=== PATIENT | male | born 1935 | race Caucasian/White ===

== ENCOUNTER 2016-07-19 10:26 | Inpatient (IN) | payer MEDICARE, BC ==
[2016-07-19] MEDS ORDERED: NITROGLYCERIN OINT 1 INCH/GM PACKET TOPICAL STA (10:56)
[2016-07-19] MEDS ORDERED: methylPREDNISolone SOD SUCCI 125 MG/2 ML VIAL IV STA (10:56)
--- NOTE | 2016-07-19 11:00 | ED ---
Extremity Problem HPI - General Chief complaint: Extremity Problem,Nontraumatic Stated complaint: CHF Time Seen by Provider: 07/19/16 10:46 Source: patient, family, RN notes reviewed Mode of arrival: wheelchair Limitations: no limitations - History of Present Illness Initial comments: This is a 82-year-old male with a history of COPD presents with complaints of dyspnea on exertion and shortness of breath also some chest tightness. Additionally he's had some edema to his left lower extremity. He states his saturations were in the mid to high 80s today he normally travels into the mid to high 90s on room air. He did take an updraft treatment just prior to arrival here he does feel somewhat better but upon arrival he still had a saturation of 88-89% on room air. He states his chest discomfort is about 4/10 severity. He relates the shortness of breath starting with a red spot was on his left leg which is since resolved he does have some slight edema he states. He denies any overt fevers chills or sweats. MD Complaint: other - Related Data Home Medications Medication Instructions Recorded Confirmed Albuterol Sulfate [Proair Hfa] 2 puff INHALATION RT-Q6H PRN 08/25/15 07/19/16 Atorvastatin [Lipitor] 20 mg PO HS 08/25/15 07/19/16 Budesonide [Pulmicort] 0.5 mg INHALATION RT-BID@0900,2100 08/25/15 07/19/16 Calcium Carb-Vit D 500Mg-200Un 1 tab PO DAILY@119908/25/15 07/19/16 [Oscal 500+D] Carvedilol [Coreg] 12.5 mg PO BID 08/25/15 07/19/16 Cetirizine HCl [Zyrtec] 10 mg PO DAILY@119908/25/15 07/19/16 Cholecalciferol [Vitamin D3] 2,000 unit PO DAILY@119908/25/15 07/19/16 Ferrous Sulfate [Feosol] 325 mg PO DAILY@119908/25/15 07/19/16 Fish Oil/Dha/Epa [Fish Oil 1,200 1 cap PO DAILY@119908/25/15 07/19/16 mg Fish Oil] HYDROcodone/APAP 10-325MG [[place] 1 tab PO Q6H PRN 08/25/15 07/19/16 10-325] Lisinopril-Hctz 20-25 mg 1 tab PO QAM 08/25/15 07/19/16 [Zestoretic 20-25] Magnesium 200 mg PO DAILY@1200 08/25/15 07/19/16 Montelukast [Singulair] 10 mg PO HS 08/25/15 07/19/16 Omeprazole 20 mg PO QAM 08/25/15 07/19/16 Polyethylene Glycol 3350 [Miralax] 17 gm PO DAILY@1200 08/25/15 07/19/16 Ranitidine HCl [Zantac] 300 mg PO HS 08/25/15 07/19/16 traZODone HCL [Desyrel] 50 mg PO HS 08/25/15 07/19/16 Albuterol Nebulized [Ventolin 2.5 mg INHALATION 07/19/16 07/19/16 Nebulized] RT-QID@03,09,15,21 Furosemide [Lasix] 20 mg PO DAILY PRN 07/19/16 07/19/16 Ipratropium Nebulized [Atrovent 0.5 mg INHALATION 07/19/16 07/19/16 Nebulized] RT-QID@03,09,15,21 Sertraline [Zoloft] 100 mg PO DAILY 07/19/16 07/19/16 clonazePAM [Clonazepam] 0.5 mg PO HS 07/19/16 07/19/16 Allergies Allergy/AdvReac Type Severity Reaction Status Date / Time ciprofloxacin [From Cipro] Allergy Angioedema Verified 07/19/16 11:49 ciprofloxacin HCl Allergy Angioedema Verified 07/19/16 11:49 [From Cipro] ragweed pollen Allergy congestion Verified 07/19/16 11:49 warfarin sodium AdvReac Nausea & Verified 07/19/16 11:49 [From Coumadin] Vomiting Review of Systems ROS Statement: Those systems with pertinent positive or pertinent negative responses have been documented in the HPI. ROS Other: All systems not noted in ROS Statement are negative. Past Medical History Past Medical History: Asthma, Cancer, COPD, Diabetes Mellitus, GERD/Reflux, Hypertension, Prostate Disorder Additional Past Medical History / Comment(s): melanoma; "very, very, very bad back" "discs in back have disintegrated" "pinched nerves", diet controlled NIDDM History of Any Multi-Drug Resistant Organisms: None Reported Past Surgical History: Heart Catheterization, Orthopedic Surgery, Tonsillectomy Additional Past Surgical History / Comment(s): Sx: both hips & both knees replaced; Left arm tricep arm repaired; 1994 cath Past Anesthesia/Blood Transfusion Reactions: Previous Problems w/ Anesthesia Additional Past Anesthesia/Blood Transfusion Reaction / Comment(s): uncontrolled shaking Past Psychological History: Anxiety Smoking Status: Former smoker Past Alcohol Use History: Rare Additional Past Alcohol Use History / Comment(s): smoking: started 7 stopped 2006 Past Drug Use History: None Reported - Past Family History Mother Family Medical History: No Reported History Additional Family Medical History / Comment(s): " at 94 from old age" Father Family Medical History: No Reported History Additional Family Medical History / Comment(s): " from medication interaction" General Exam - General Exam Comments Initial Comments: This is a well-developed well-nourished awake alert oriented 3 male Limitations: no limitations General appearance: alert, in no apparent distress Head exam: Present: atraumatic, normocephalic, normal inspection Eye exam: Present: normal appearance, PERRL, EOMI. Absent: scleral icterus, conjunctival injection, periorbital swelling ENT exam: Present: normal exam, mucous membranes moist Neck exam: Present: normal inspection. Absent: tenderness, meningismus, lymphadenopathy Respiratory exam: Present: normal lung sounds bilaterally. Absent: respiratory distress, wheezes, rales, rhonchi, stridor Cardiovascular Exam: Present: regular rate, normal rhythm, normal heart sounds. Absent: systolic murmur, diastolic murmur, rubs, gallop, clicks GI/Abdominal exam: Present: soft, normal bowel sounds. Absent: distended, tenderness, guarding, rebound, rigid Extremities exam: Present: normal inspection, full ROM, normal capillary refill , pedal edema (Trace edema in the left no overt edema on the right lower extremity). Absent: tenderness, joint swelling, calf tenderness Back exam: Present: normal inspection Neurological exam: Present: alert, oriented X3, CN II-XII intact Psychiatric exam: Present: normal affect, normal mood Skin exam: Present: warm, dry, intact, normal color. Absent: rash Course Vital Signs 07/19/16 07/19/16 07/19/16 10:36 11:54 13:10 Temperature 97.5 F L Pulse Rate 92 87 93 Respiratory 16 18 16 Rate Blood Pressure 133/66 123/66 119/66 O2 Sat by Pulse 91 L 91 L 92 L Oximetry 07/19/16 07/19/16 13:24 13:32 Temperature Pulse Rate 92 96 Respiratory 20 Rate Blood Pressure O2 Sat by Pulse Oximetry - Reevaluation(s) Reevaluation #1: 07/19/16 13:58 The patient still is feeling dyspneic he did get a order for a repeat updraft. Medical Decision Making - Lab Data Result diagrams: 07/19/16 11:00 07/19/16 11:00 Lab Results 07/19/16 07/19/16 07/19/16 Range/Units 11:00 11:00 11:00 WBC 12.4 H (3.8-10.6) k/uL RBC 4.27 L (4.30-5.90) m/uL Hgb 13.4 (13.0-17.5) gm/dL Hct 40.6 (39.0-53.0) % MCV 95.2 (80.0-100.0) fL MCH 31.3 (25.0-35.0) pg MCHC 32.9 (31.0-37.0) g/dL RDW 13.9 (11.5-15.5) % Plt Count 264 (150-450) k/uL Neutrophils % 93 % Lymphocytes % 5 % Monocytes % 1 % Eosinophils % 0 % Basophils % 0 % Neutrophils # 11.6 H (1.3-7.7) k/uL Lymphocytes # 0.7 L (1.0-4.8) k/uL Monocytes # 0.1 (0-1.0) k/uL Eosinophils # 0.0 (0-0.7) k/uL Basophils # 0.0 (0-0.2) k/uL PT (9.0-12.0) sec INR (<1.1) APTT (22.0-30.0) sec Sodium 139 (137-145) mmol/L Potassium 5.2 H (3.5-5.1) mmol/L Chloride 104 (98-107) mmol/L Carbon Dioxide 24 (22-30) mmol/L Anion Gap 11 mmol/L BUN 35 H (9-20) mg/dL Creatinine 2.02 H (0.66-1.25) mg/dL Est GFR (MDRD) Af Amer 39 (>60 ml/min/1.73 sqM) Est GFR (MDRD) Non-Af 32 (>60 ml/min/1.73 sqM) Glucose 169 H (74-99) mg/dL Calcium 9.7 (8.4-10.2) mg/dL Magnesium 1.8 (1.6-2.3) mg/dL Total Bilirubin 0.6 (0.2-1.3) mg/dL AST 33 (17-59) U/L ALT 42 (21-72) U/L Alkaline Phosphatase 89 (38-126) U/L Total Creatine Kinase 102 (55-170) U/L CK-MB (CK-2) 1.9 (0.0-2.4) ng/mL CK-MB (CK-2) Rel Index 1.9 Troponin I <0.012 (0.000-0.034) ng/mL NT-Pro-B Natriuret Pep pg/mL Total Protein 7.2 (6.3-8.2) g/dL Albumin 4.0 (3.5-5.0) g/dL 07/19/16 07/19/16 Range/Units 11:00 11:00 WBC (3.8-10.6) k/uL RBC (4.30-5.90) m/uL Hgb (13.0-17.5) gm/dL Hct (39.0-53.0) % MCV (80.0-100.0) fL MCH (25.0-35.0) pg MCHC (31.0-37.0) g/dL RDW (11.5-15.5) % Plt Count (150-450) k/uL Neutrophils % % Lymphocytes % % Monocytes % % Eosinophils % % Basophils % % Neutrophils # (1.3-7.7) k/uL Lymphocytes # (1.0-4.8) k/uL Monocytes # (0-1.0) k/uL Eosinophils # (0-0.7) k/uL Basophils # (0-0.2) k/uL PT 10.2 (9.0-12.0) sec INR 1.0 (<1.1) APTT 23.0 (22.0-30.0) sec Sodium (137-145) mmol/L Potassium (3.5-5.1) mmol/L Chloride (98-107) mmol/L Carbon Dioxide (22-30) mmol/L Anion Gap mmol/L BUN (9-20) mg/dL Creatinine (0.66-1.25) mg/dL Est GFR (MDRD) Af Amer (>60 ml/min/1.73 sqM) Est GFR (MDRD) Non-Af (>60 ml/min/1.73 sqM) Glucose (74-99) mg/dL Calcium (8.4-10.2) mg/dL Magnesium (1.6-2.3) mg/dL Total Bilirubin (0.2-1.3) mg/dL AST (17-59) U/L ALT (21-72) U/L Alkaline Phosphatase (38-126) U/L Total Creatine Kinase (55-170) U/L CK-MB (CK-2) (0.0-2.4) ng/mL CK-MB (CK-2) Rel Index Troponin I (0.000-0.034) ng/mL NT-Pro-B Natriuret Pep 420 pg/mL Total Protein (6.3-8.2) g/dL Albumin (3.5-5.0) g/dL - EKG Data -: EKG Interpreted by [place] EKG shows normal: sinus rhythm (Sinus rhythm with a rate of 88 [place] interval 148 QRS duration 84 QT/QTC of 352/425 st-t wave changes are seen.) - Radiology Data Radiology results: report reviewed (Did review the x-rays and reports no acute findings.), image reviewed Critical Care Time Critical Care Time: Yes Critical Care Time: Or 2 minutes which included initial presentation with history physical lab and x -rays reevaluation patient to therapy response evaluation of labs and x-rays. Discussion with the patient family. Discussion with the admitting physician documentation and admission orders. Disposition Clinical Impression: COPD with exacerbation, Hypoxemia, Chest pain Disposition: ADMITTED IP TO THIS [facility] Condition: Stable
[2016-07-19 11:11] LABS: Basophils % (A) 0 %; CH 31.4; CHCM 33.2; Eosinophils % (A) 0 %; HCT 40.6 % (39.0-53.0); HGB 13.4 gm/dL (13.0-17.5); Luc # (Auto) 0.06; Luc % (Auto) 1; Lymphocytes # (A) 0.7 k/uL (1.0-4.8); Lymphocytes % (A) 5 %; MCH 31.3 pg (25.0-35.0); MCHC 32.9 g/dL (31.0-37.0); MCV 95.2 fL (80.0-100.0); Monocytes # (A) 0.1 k/uL (0-1.0); Monocytes % (A) 1 %; Neutrophils # (A) 11.6 k/uL (1.3-7.7); Neutrophils % (A) 93 %; RBC 4.27 m/uL (4.30-5.90); RDW 13.9 % (11.5-15.5); WBC 12.4 k/uL (3.8-10.6); WBC (Perox) 12.65
[2016-07-19 11:21] LABS: Prothrombin Time 10.2 sec (9.0-12.0)
[2016-07-19 11:23] LABS: Calcium 9.7 mg/dL (8.4-10.2); Magnesium 1.8 mg/dL (1.6-2.3); Potassium 5.2 mmol/L (3.5-5.1); Total Bilirubin 0.6 mg/dL (0.2-1.3); Total Protein 7.2 g/dL (6.3-8.2)
[2016-07-19 11:32] LABS: Creatine Kinase 102 U/L (55-170)
--- NOTE | 2016-07-19 11:34 | XR ---
EXAMINATION TYPE: XR chest 2V DATE OF EXAM: 07/19/2016 11:26 AM COMPARISON: Chest CT December 02, 2014. HISTORY: Shortness of breath and chest pain. TECHNIQUE: Frontal and lateral views of the chest are obtained. FINDINGS: Underlying emphysematous change is present. Right basilar linear scarring is redemonstrated . There is no focal air space opacity, pleural effusion, or pneumothorax seen. The cardiac silhouett e size is within normal limits. Degenerative change in both shoulders is seen. IMPRESSION: Chronic emphysematous change without acute pulmonary process.
[2016-07-19 11:45] LABS: Creatine Kinase MB 1.9 ng/mL (0.0-2.4); Troponin I <0.012 ng/mL (0.000-0.034)
[2016-07-19] MEDS ORDERED: MAGNESIUM SULFATE-D5W PMX 1 GM in DEXTROSE/WATER 1 100ML.BAG IVPB ONE (13:14)
[2016-07-19] MEDS ORDERED: IPRATROPIUM-ALBUTEROL 3 ML NEB INHALATION STA (13:14)
[2016-07-19] MEDS ORDERED: SODIUM CHLORIDE 0.9% 1,000 ML IV SCH (14:00)
[2016-07-19] MEDS ORDERED: FUROSEMIDE 20 MG TAB PO PRN (14:02)
[2016-07-19] MEDS: HYDROcodone/APAP 10-325MG 1 EACH TAB PO PRN (15:12)
[2016-07-19] MEDS: IPRATROPIUM-ALBUTEROL 3 ML NEB INHALATION SCH ×2 (17:16→20:23)
[2016-07-19] MEDS: CARVEDILOL 12.5 MG TAB PO SCH (17:57)
[2016-07-19] MEDS: methylPREDNISolone SOD SUCCI 125 MG/2 ML VIAL IV SCH ×2 (18:12→22:43)
[2016-07-19 21:21] LABS: Glucose,Whole Blood 202 mg/dL (75-99)
[2016-07-19] MEDS: traZODone HCL 50 MG TAB PO SCH (21:45)
[2016-07-19] MEDS: clonazePAM 0.5 MG TAB PO SCH (21:46)
[2016-07-19] MEDS: MONTELUKAST 10 MG TAB PO SCH (21:46)
[2016-07-19] MEDS: FAMOTIDINE 20 MG TAB PO SCH (21:46)
[2016-07-19] MEDS: ATORVASTATIN 20 MG TAB PO SCH (21:54)
[2016-07-19] MEDS: INSULIN LISPRO (humaLOG) 300 UNIT/3 ML VIAL SQ SCH (22:41)
[2016-07-20] MEDS: IPRATROPIUM-ALBUTEROL 3 ML NEB INHALATION SCH ×7 (00:30→23:53)
[2016-07-20] MEDS: methylPREDNISolone SOD SUCCI 125 MG/2 ML VIAL IV SCH ×4 (05:49→23:30)
[2016-07-20 07:51] LABS: Glucose,Whole Blood 156 mg/dL (75-99)
[2016-07-20] MEDS: CARVEDILOL 12.5 MG TAB PO SCH ×2 (07:56→17:14)
[2016-07-20] MEDS: INSULIN LISPRO (humaLOG) 300 UNIT/3 ML VIAL SQ SCH ×4 (08:02→21:13)
[2016-07-20] MEDS: HYDROcodone/APAP 10-325MG 1 EACH TAB PO PRN ×2 (08:02→17:14)
[2016-07-20] MEDS: SERTRALINE 100 MG TAB PO SCH (08:40)
[2016-07-20] MEDS: PANTOPRAZOLE 40 MG TABLET PO SCH (08:40)
[2016-07-20] MEDS ORDERED: LISINOPRIL-HCTZ 20-25 MG 1 EACH TAB PO SCH (09:00)
[2016-07-20 09:55] LABS: Calcium 9.2 mg/dL (8.4-10.2); Potassium 4.5 mmol/L (3.5-5.1); Total Bilirubin 0.4 mg/dL (0.2-1.3); Total Protein 6.3 g/dL (6.3-8.2)
[2016-07-20 10:27] LABS: Basophils % (A) 0 %; CH 30.9; CHCM 32.1; Eosinophils % (A) 0 %; HCT 38.8 % (39.0-53.0); HDW 2.06; HGB 12.4 gm/dL (13.0-17.5); Luc # (Auto) 0.03; Luc % (Auto) 0; Lymphocytes # (A) 0.6 k/uL (1.0-4.8); Lymphocytes % (A) 4 %; MCH 30.8 pg (25.0-35.0); MCHC 31.9 g/dL (31.0-37.0); MCV 96.6 fL (80.0-100.0); Mean Platelet Volume 7.6; Monocytes # (A) 0.2 k/uL (0-1.0); Monocytes % (A) 1 %; Neutrophils # (A) 16.3 k/uL (1.3-7.7); Neutrophils % (A) 95 %; RBC 4.01 m/uL (4.30-5.90); RDW 13.8 % (11.5-15.5); WBC 17.2 k/uL (3.8-10.6); WBC (Perox) 17.73
--- NOTE | 2016-07-20 10:59 | P.HPIM ---
History of Present Illness H&P Date: 07/20/16 Chief Complaint: Shortness of breath and chest pain This is a 81-year-old male, a patient of [facility]. He has a known past medical history of COPD, diabetes mellitus, prostate cancer status post surgery, congestive heart failure, melanoma and former smoker. Presents to the hospital with worsening shortness of breath and chest pain. Patient states he has had worsening shortness of breath of the last couple weeks. Yesterday he started to have chest pains with cold sweats and tingling in the left arm. He was found to have hypoxemia with oxygen saturation in the 80s in the emergency room. Troponin was negative. EKG shows normal sinus rhythm with sinus arrhythmia. He was started on oxygen. Chest x-ray shows chronic emphysematous changes with no acute change. Pulmonary service consulted. He was started on IV Solu-Medrol and bronchodilators. He also will be placed on antibiotics for bronchitis. He does report to having some productive cough. Also had evidence of acute kidney injury with a creatinine of 2.02. It is unclear of his exact baseline kidney function. His he does report some leg swelling in the left leg which she took Lasix twice during the week. Leg swelling has decreased. BNP 420 on admission. Patient denies any fever, chills , sweats. Denies any nausea or vomiting. Denies any bowel movement changes or urinary symptoms. Review of Systems Please refer to HPI otherwise unremarkable Past Medical History Past Medical History: Cancer, Heart Failure, COPD, Diabetes Mellitus, GERD/ Reflux, Hyperlipidemia, Hypertension, Prostate Disorder Additional Past Medical History / Comment(s): melanoma x2 to lt ear; "very, very , very bad back" "discs in back have disintegrated" "pinched nerves", diet controlled NIDDM, diverticualr disease,rt eye cataract, kidney stone in past.hiatal hernia,sinus/seasonal allergies."irreg heart beat, murmur. History of Any Multi-Drug Resistant Organisms: None Reported Past Surgical History: Heart Catheterization, Orthopedic Surgery, Prostate Surgery, Tonsillectomy Additional Past Surgical History / Comment(s): both hips & both knees replaced; Left arm tricep arm repaired; 1993 cath-no intervention, colonoscopy/polypectomy (benign), prostatectomy d/t cancer. steroid inj to back Past Anesthesia/Blood Transfusion Reactions: Previous Problems w/ Anesthesia Additional Past Anesthesia/Blood Transfusion Reaction / Comment(s): uncontrolled shaking(prevously charted) Past Psychological History: Anxiety Additional Psychological History / Comment(s): pt is independant, lives with his elis (and 2 cats) in a ranch style home that has 3 steps into home. no outseide services recieved. 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 Smoking Status: Former smoker Past Alcohol Use History: Rare Additional Past Alcohol Use History / Comment(s): smoking: started 194 stopped 2004, was smoking less than 1/2 ppd Past Drug Use History: None Reported - Past Family History Mother Family Medical History: No Reported History Additional Family Medical History / Comment(s): " at 94 from old age" Father Family Medical History: No Reported History Additional Family Medical History / Comment(s): " from medication interaction" Medications and Allergies Home Medications Medication Instructions Recorded Confirmed Type Albuterol Sulfate [Proair Hfa] 2 puff INHALATION RT-Q6H PRN 08/25/15 07/19/16 History Atorvastatin [Lipitor] 20 mg PO HS 08/25/15 07/19/16 History Budesonide [Pulmicort] 0.5 mg INHALATION RT-BID@0900,2100 08/25/15 07/19/16 History Calcium Carb-Vit D 500Mg-200Un 1 tab PO DAILY@119908/25/15 07/19/16 History [Oscal 500+D] Carvedilol [Coreg] 12.5 mg PO BID 08/25/15 07/19/16 History Cetirizine HCl [Zyrtec] 10 mg PO DAILY@119908/25/15 07/19/16 History Cholecalciferol [Vitamin D3] 2,000 unit PO DAILY@119908/25/15 07/19/16 History Ferrous Sulfate [Feosol] 325 mg PO DAILY@119908/25/15 07/19/16 History Fish Oil/Dha/Epa [Fish Oil 1,200 1 cap PO DAILY@119908/25/15 07/19/16 History mg Fish Oil] HYDROcodone/APAP 10-325MG [[place] 1 tab PO Q6H PRN 08/25/15 07/19/16 History 10-325] Lisinopril-Hctz 20-25 mg 1 tab PO QAM 08/25/15 07/19/16 History [Zestoretic 20-25] Magnesium 200 mg PO DAILY@1200 08/25/15 07/19/16 History Montelukast [Singulair] 10 mg PO HS 08/25/15 07/19/16 History Omeprazole 20 mg PO QAM 08/25/15 07/19/16 History Polyethylene Glycol 3350 [Miralax] 17 gm PO DAILY@1200 08/25/15 07/19/16 History Ranitidine HCl [Zantac] 300 mg PO HS 08/25/15 07/19/16 History traZODone HCL [Desyrel] 50 mg PO HS 08/25/15 07/19/16 History Albuterol Nebulized [Ventolin 2.5 mg INHALATION 07/19/16 07/19/16 History Nebulized] RT-QID@03,,, Furosemide [Lasix] 20 mg PO DAILY PRN 07/19/16 07/19/16 History Ipratropium Nebulized [Atrovent 0.5 mg INHALATION 07/19/16 07/19/16 History Nebulized] RT-QID@03,09,,21 Sertraline [Zoloft] 100 mg PO DAILY 07/19/16 07/19/16 History clonazePAM [Clonazepam] 0.5 mg PO HS 07/19/16 07/19/16 History Allergies Allergy/AdvReac Type Severity Reaction Status Date / Time ciprofloxacin [From Cipro] Allergy Angioedema Verified 07/19/16 11:49 ciprofloxacin HCl Allergy Angioedema Verified 07/19/16 11:49 [From Cipro] ragweed pollen Allergy congestion Verified 07/19/16 11:49 warfarin sodium AdvReac Nausea & Verified 07/19/16 11:49 [From Coumadin] Vomiting Physical Exam Vitals: Vital Signs Temp Pulse Pulse Pulse Resp BP BP 07/20/16 07:49 86 07/20/16 07:41 82 07/20/16 07:00 96.8 F L 84 20 111/65 07/19/16 22:21 97.5 F L 90 18 108/68 07/19/16 20:46 93 07/19/16 20:27 07/19/16 20:26 93 07/19/16 15:51 97.6 F 96 127/69 07/19/16 15:18 97.6 F 97 18 114/59 Pulse Ox 07/20/16 07:49 07/20/16 07:41 93 L 07/20/16 07:00 97 07/19/16 22:21 93 L 07/19/16 20:46 07/19/16 20:27 92 L 07/19/16 20:26 07/19/16 15:51 96 07/19/16 15:18 93 L Intake and Output 07/19/16 07/20/16 07/20/16 22:59 06:59 14:59 Intake Total 240 Balance 240 Intake: Oral 240 Other: Voiding Method Toilet Toilet Toilet # Voids 1 1 Head normocephalic Neck supple Lungs scattered wheezing bilaterally Heart regular rate and rhythm S1-S2, no rub or gallop Abdomen is soft nontender nondistended positive bowel sounds no hepatosplenomegaly Extremities no edema Neuro alert and orientated to 3 Results CBC & Chem 7: 07/20/16 08:52 07/20/16 08:52 Labs: Abnormal Lab Results - Last 24 Hours (Table) 07/19/16 07/20/16 07/20/16 Range/Units 21:17 07:05 08:52 WBC 17.2 H (3.8-10.6) k/uL RBC 4.01 L (4.30-5.90) m/uL Hgb 12.4 L (13.0-17.5) gm/dL Hct 38.8 L (39.0-53.0) % Neutrophils # 16.3 H (1.3-7.7) k/uL Lymphocytes # 0.6 L (1.0-4.8) k/uL Carbon Dioxide (22-30) mmol/L BUN (9-20) mg/dL Creatinine (0.66-1.25) mg/dL Glucose (74-99) mg/dL POC Glucose (mg/dL) 202 H 156 H (75-99) mg/dL Albumin (3.5-5.0) g/dL 07/20/16 Range/Units 08:52 WBC (3.8-10.6) k/uL RBC (4.30-5.90) m/uL Hgb (13.0-17.5) gm/dL Hct (39.0-53.0) % Neutrophils # (1.3-7.7) k/uL Lymphocytes # (1.0-4.8) k/uL Carbon Dioxide 21 L (22-30) mmol/L BUN 39 H (9-20) mg/dL Creatinine 1.95 H (0.66-1.25) mg/dL Glucose 227 H (74-99) mg/dL POC Glucose (mg/dL) (75-99) mg/dL Albumin 3.4 L (3.5-5.0) g/dL Thrombosis Risk Factor Assmnt - Choose All That Apply Any of the Below Risk Factors Present?: Yes Each Factor Represents 1 point: Abnormal pulmonary function (COPD) Other Risk Factors: Yes Each Risk Factor Represents 2 Points: Malignancy Each Risk Factor Represents 3 Points: Age 75 years or older Other congenital or acquired thrombophilia - If yes, enter type in comment: No Thrombosis Risk Factor Assessment Total Risk Factor Score: 6 Thrombosis Risk Factor Assessment Level: High Risk Assessment and Plan Plan: 1. Acute COPD exacerbation: Patient started on IV Solu-Medrol and bronchodilators. Pulmonary service consulted 2. Acute tracheobronchitis: Chest x-ray shows no evidence of pneumonia. Start azithromycin and Rocephin. 3. Episode of chest pain with shortness of breath. Check d-dimer is elevated will do further PE workup.Troponin negative 1. EKG showing normal sinus rhythm with sinus arrhythmia 4. Acute kidney injury: Creatinine elevated at 2.02. Patient did take his Lasix twice earlier this week. Discontinue Lasix , hydrochlorothiazide and lisinopril. We'll place him on normal saline at 50 mL an hour and continue to monitor kidney function closely. 5. Acute hypoxic respiratory failure likely related to his COPD and bronchitis. Also ruling out PE. Pulmonary service consulted. 6. Diabetes mellitus type 2: Diet controlled. Place patient on sliding scale coverage. Blood sugars are elevated also due to steroids 7. Hyperkalemia on admission potassium 5.2. now resolved 8. History of prostate cancer with prostate surgery March 2016 9. Essential hypertension: Blood pressures are stable. Monitor closely. Continue with Coreg 10. Hyperlipidemia continue Lipitor GI prophylaxis Pepcid and DVT prophylaxis subcu heparin Time with Patient: Greater than 30 (Greater than 50% of the total time spent in counseling and coordination of care.I performed an examination of the patient and discussed their management with the physician Airfreight Loading Supervisor. I have reviewed the Physician Airfreight Loading Supervisor's notes and agree with the documented findings and plan of care)
[2016-07-20] MEDS: SODIUM CHLORIDE 0.9% 1,000 ML IV SCH (11:00)
[2016-07-20] MEDS: LORATADINE 10 MG TAB PO SCH (11:01)
[2016-07-20] MEDS: CHOLECALCIFEROL 1,000 UNIT TAB PO SCH (11:01)
[2016-07-20] MEDS: FERROUS SULFATE 325 MG TAB PO SCH (11:01)
[2016-07-20] MEDS: CALCIUM CARB-VIT D 500MG-200UN 1 EACH TAB PO SCH (11:01)
[2016-07-20] MEDS: MAGNESIUM OXIDE 400 MG TAB PO SCH (11:01)
[2016-07-20] MEDS: POLYETHYLENE GLYCOL 3350 17 GM POWD.PACK PO SCH (11:02)
[2016-07-20] MEDS: AZITHROMYCIN 500 MG in SODIUM CHLORIDE 0.9% 250 ML IVPB SCH (11:44)
[2016-07-20 11:57] LABS: Glucose,Whole Blood 160 mg/dL (75-99)
[2016-07-20] MEDS ORDERED: NON-FORMULARY DRUG (Fish Oil/Dha/Epa [Fish Oil 1,200 Mg Fish Oil] 1 CAP) PO SCH (12:00)
--- NOTE | 2016-07-20 14:14 | NM ---
EXAMINATION TYPE: NM pul vent and perfuse DATE OF EXAM: 07/20/2016 2:02 PM COMPARISON: NONE HISTORY: Shortness of breath TECHNIQUE: Utilizing inhalation of 70.8 mCi Tc 99m DTPA aerosol and intravenous injection of 5.5 mCi of Tc 99m MAA, ventilation and perfusion images are acquired post injection in multiple projections. FINDINGS: There is moderate central airway deposition in keeping with chronic obstructive pulmonary d isease. There are no VQ mismatches. IMPRESSION: THIS EXAMINATION IS LOW PROBABILITY FOR PULMONARY EMBOLUS.
[2016-07-20 17:01] LABS: Glucose,Whole Blood 172 mg/dL (75-99)
--- NOTE | 2016-07-20 17:42 | CT ---
EXAMINATION TYPE: CT chest wo con DATE OF EXAM: 07/20/2016 5:34 PM COMPARISON: 12/02/2014 HISTORY: shortness of breath without chest pain CT DLP: 407.7 mGycm Automated exposure control for dose reduction was used. FINDINGS: There are mild emphysematous changes in the upper lung reed. There is no evidence of a pulmonary ma ss. There is a 4 mm calcified granuloma in the anterior right middle lobe. There is mild reticular de nsity at the lung bases consistent with scarring and subsegmental atelectasis. There is no evidence o f a pulmonary mass. There are no hilar masses. There is no mediastinal adenopathy. The thoracic aorta is atheromatous. There is moderate coronary artery calcification. There is a small calcified granulo ma at the right pulmonary hilum. There is no pleural effusion. There is no pericardial effusion. The bony thorax is intact. IMPRESSION: MILD EMPHYSEMA. FIBROTIC CHANGES AND SUBSEGMENTAL ATELECTASIS AT THE LUNG BASES AND TO A LESSER EXTEN T THE UPPER LOBES.. HEALED GRANULOMATOUS DISEASE. EXTENSIVE ATHEROSCLEROTIC VASCULAR CALCIFICATION. F IBROTIC CHANGES ARE SLIGHTLY WORSE THAN OLD EXAM.
--- NOTE | 2016-07-20 20:20 | PN ---
DATE OF SERVICE: 07/20/2016 HISTORY OF PRESENT ILLNESS: The patient is an 81-year-old male who is known to our practice, states that he had been in and out of his primary care physician's office for some lower extremity swelling and was having no problems with shortness of breath; however, patient started to experience worsening shortness of breath a few days ago with associated chest pain, cold sweats, tingling down his left arm, was hypoxic at home, 85%. The patient had been in touch with the pulmonary office and had received prednisone which he started yesterday morning and then came to the emergency room and was admitted for further evaluation and treatment. Patient does verbalize to me that these symptoms as far as the chest pain, cold sweats and tingling are similar to what he gets secondary to a hiatal hernia; however, he has been instructed by his tentmaker to come when those symptoms occur to make sure that it is not cardiac. Patient also does complain of a cough, which has been productive for white clear sputum. Past medical history is positive for prostate cancer. The patient had a prostatectomy in March. Heart failure, COPD, diabetes mellitus; however, patient denies having diabetes mellitus. Also history of GERD, hyperlipidemia, hypertension and prostate disorder with degenerative disc disease, diverticular disease, hiatal hernia, seasonal allergies and heart murmur. Past surgical history is significant for a heart catheterization, orthopedic surgery, prostate surgery, tonsillectomy, bilateral hip and knee replacements and surgery on his left arm triceps. He has also had a cardiac catheterization in colonoscopy and has received steroid injections in his back. ALLERGIES INCLUDE CIPRO AND COUMADIN. Medications the patient is on at home include: 1. Clonazepam 0.5 mg p.o. q.h.s. 2. Magnesium 200 mg p.o. daily. 3. MiraLax 17 g p.o. daily. 4. Singulair 10 mg p.o. q.h.s. 5. Fish oil 1200 mg p.o. daily. 6. Feosol 325 mg p.o. daily. 7. Vitamin D3, 2000 units p.o. daily. 8. Zyrtec 10 mg p.o. daily. 9. Calcium carbonate 1 tab p.o. daily. 10. Albuterol and Atrovent via nebulizer q.i.d. 11. Pulmicort via nebulizer b.i.d. 12. Lasix 20 mg p.o. daily p.r.n. 13. [place] 10, 1 tab p.o. every 6 hours p.r.n. 14. Zantac 300 mg p.o. q.h.s. 15. Omeprazole 20 mg p.o. q.a.m. 16. Coreg 12.5 mg p.o. b.i.d. 17. Lipitor 20 mg p.o. q.h.s. 18. Desyrel 50 mg p.o. q.h.s. 19. Zoloft 100 mg p.o. daily. 20. Zestoretic , 1 tab p.o. q.a.m. FAMILY HISTORY: Mother of old age at 94. Father unknown age, of a reaction to medication. SOCIAL HISTORY: The patient does have a history of smoking x58 years, less than 1/2 pack per day, quit in 2004, drinks alcohol rarely. Denies any illicit drug use. 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 REVIEW OF SYSTEMS: GENERAL: Negative for any fever or chills. HEENT: Positive for dizziness with hypoxia. Negative for any acute visual changes. Negative for any difficulty hearing. The patient does have seasonal allergies. Denies nosebleeds. Denies any sore throat or difficulty swallowing; however, does complain of burning in his mouth. RESPIRATORY: Positive for shortness of breath, which is worsening and a cough. Denies hemoptysis. CARDIOVASCULAR: Positive for chest pain, which has resolved. GI: Negative for abdominal pain. Positive for history of hiatal hernia. Negative for any nausea, vomiting, diarrhea or constipation. : Negative for any dysuria or hematuria. ENDOCRINE: Positive for diabetes mellitus; however, the patient denies that. Denies any thyroid disease. MUSCULOSKELETAL: Positive for osteoarthritis with degenerative disc disease. PSYCHIATRIC: Positive for anxiety. NEUROLOGIC: Negative for any history of seizures. 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 PHYSICAL EXAMINATION: GENERAL: A pleasant, elderly male, seen sitting up in bed, awake and alert. VITAL SIGNS: Temp is 97.1, heart rate is 81, respiratory rate is 20, blood pressure is 107/62, O2 sat is 90% on room air. HEENT: Head is normocephalic, atraumatic. Pupils equal, round, react to light. Ears and nose, no discharge is noted. Mouth: Moist mucous membranes. Mallampati is class III with a low-lying soft palate. The patient denies history of obstructive sleep apnea, has had a prior sleep study, did say he was ordered CPAP, but his primary care physician told him he did not need it. NECK: Supple. Trachea is midline. Lungs with essentially clear breath sounds. No rales or wheezes. HEART: S1 and S2 are heard. Not tachycardic. ABDOMEN: Soft. Bowel sounds are heard. Extremities with trace to 1+ pitting edema. NEUROLOGIC: The patient is awake and alert. LABS: White count 17.2, hemoglobin is 12.4, hematocrit is 38.8 with 255,000 platelets. D-dimer is 0.60. Sodium is 138, potassium is 4.5, chloride is 104, CO2 is 21, anion gap is 13, BUN is 39, creatinine is 1.95. Calcium is 9.2. Total bilirubin is 0.4. AST is 26, ALT is 34, alk phos is 74. On admission, troponin was less than 0.012. BNP is 420. Total protein is 6.3. Albumin is 3.4. On imaging, a chest x-ray shows chronic emphysematous change without acute pulmonary process. VQ scan shows low probability for PE. IMPRESSION: 1. Acute hypoxic respiratory failure. 2. Chronic obstructive pulmonary disease with acute exacerbation. 3. Acute renal failure. 4. Possible congestive heart failure. PLAN: Continue bronchodilators and aerosolized steroids. Continue IV Solu-Medrol with GI and DVT prophylaxis. Continue oxygen to maintain sats greater than or equal to 88%. Continue antibiotics. Will check a CT of the chest without contrast as well as order an echocardiogram. Will add incentive spirometry and pulmonary hygiene and continue to follow the patient closely with you, making further changes as necessary. Thank you for the consultation. I performed a history and physical examination of this patient and discussed the same with the dictator. I agree with the dictator's note. Any additional findings/opinions, etc. will be noted.
[2016-07-20 20:35] LABS: Glucose,Whole Blood 181 mg/dL (75-99)
[2016-07-20] MEDS: BUDESONIDE 0.5 MG/2 ML NEBU INHALATION SCH (20:44)
[2016-07-20] MEDS: clonazePAM 0.5 MG TAB PO SCH (21:05)
[2016-07-20] MEDS: ATORVASTATIN 20 MG TAB PO SCH (21:05)
[2016-07-20] MEDS: MONTELUKAST 10 MG TAB PO SCH (21:06)
[2016-07-20] MEDS: traZODone HCL 50 MG TAB PO SCH (21:06)
[2016-07-20] MEDS: FAMOTIDINE 20 MG TAB PO SCH (21:06)
[2016-07-20] MEDS: HEPARIN SODIUM,PORCINE 5,000 UNIT/ML 1 ML VIAL SQ SCH (21:10)
[2016-07-20] MEDS ORDERED: INSULIN LISPRO (humaLOG) 300 UNIT/3 ML VIAL SQ SCH (22:15)
[2016-07-21] MEDS: IPRATROPIUM-ALBUTEROL 3 ML NEB INHALATION SCH ×6 (03:30→23:38)
[2016-07-21] MEDS: methylPREDNISolone SOD SUCCI 125 MG/2 ML VIAL IV SCH ×3 (06:03→21:15)
[2016-07-21] MEDS: SODIUM CHLORIDE 0.9% 1,000 ML IV SCH (06:05)
[2016-07-21 07:24] LABS: Glucose,Whole Blood 143 mg/dL (75-99)
[2016-07-21] MEDS: BUDESONIDE 0.5 MG/2 ML NEBU INHALATION SCH ×2 (07:51→20:20)
[2016-07-21] MEDS: CARVEDILOL 12.5 MG TAB PO SCH ×2 (08:36→18:26)
[2016-07-21] MEDS: INSULIN LISPRO (humaLOG) 300 UNIT/3 ML VIAL SQ SCH ×4 (08:36→21:15)
[2016-07-21 08:38] LABS: Basophils % (A) 0 %; CH 30.9; CHCM 32.2; Eosinophils % (A) 0 %; HCT 38.4 % (39.0-53.0); HDW 2.17; HGB 12.6 gm/dL (13.0-17.5); Luc # (Auto) 0.07; Luc % (Auto) 0; Lymphocytes # (A) 0.5 k/uL (1.0-4.8); Lymphocytes % (A) 3 %; MCH 31.5 pg (25.0-35.0); MCHC 32.7 g/dL (31.0-37.0); MCV 96.3 fL (80.0-100.0); Mean Platelet Volume 8.3; Monocytes # (A) 0.3 k/uL (0-1.0); Monocytes % (A) 2 %; Neutrophils # (A) 16.6 k/uL (1.3-7.7); Neutrophils % (A) 95 %; RBC 3.99 m/uL (4.30-5.90); RDW 13.9 % (11.5-15.5); WBC 17.6 k/uL (3.8-10.6); WBC (Perox) 18.36
[2016-07-21] MEDS: SERTRALINE 100 MG TAB PO SCH (08:38)
[2016-07-21] MEDS: PANTOPRAZOLE 40 MG TABLET PO SCH (08:38)
[2016-07-21] MEDS: HEPARIN SODIUM,PORCINE 5,000 UNIT/ML 1 ML VIAL SQ SCH ×3 (08:38→23:12)
[2016-07-21 08:59] LABS: Calcium 8.9 mg/dL (8.4-10.2); Potassium 4.6 mmol/L (3.5-5.1); Total Bilirubin 0.4 mg/dL (0.2-1.3); Total Protein 6.3 g/dL (6.3-8.2)
--- NOTE | 2016-07-21 10:05 | P.PN ---
Subjective 81-year-old male being seen on rounds resting in bed. Patient states with activity continues to feel short of breath. Patient states he did get up to ambulate from the bed to the bathroom pulse ox sats dropped to 88 on room air". Patient states he's coughing but not able to cough up any secretions. Patient 's chest x-ray obtained on admission show chronic emphysematous type changes no acute changes. Patient's initial presentation to the emergency room with a chief complaint of developing shortness of breath symptomatic ongoing for the last several weeks. In the emergency room patient was found to be hypoxic pulse ox sat was in the 80s. Patient did have a CAT scan of the chest without contrast done on the that showed mild emphysema fiberoptic type changes atelectasis at the lung bases currently patients being followed by pulmonology service Objective - Vital Signs Vital signs: Vital Signs Temp 97.4 F L 07/21/16 07:00 Pulse 94 07/21/16 07:54 Resp 18 07/21/16 07:00 BP 109/61 07/21/16 07:00 Pulse Ox 88 L 07/21/16 07:54 Intake & Output 07/20/16 07/21/16 07/21/16 18:59 06:59 18:59 Intake Total 240 200 Balance 240 200 Intake: Oral 240 200 Other: Voiding Method Toilet Toilet Diaper # Voids 1 2 - Exam Physical exam 81-year-old gentleman sitting up in bed pleasant cooperative oriented 3 Lungs posterior diminished at the bases poor air entry no wheezing noted dry cough noted sats on 2 L 97% Heart S1-S2 audible and regular denying chest pain when questioning Abdomen soft nontender reports no nausea vomiting no frequent stooling not distended Extremities a trace pedal edema bilaterally - Labs CBC & Chem 7: 07/21/16 08:03 07/21/16 08:03 Labs: Abnormal Lab Results - Last 24 Hours (Table) 07/20/16 07/20/16 07/20/16 Range/Units 08:52 08:52 08:52 WBC 17.2 H (3.8-10.6) k/uL RBC 4.01 L (4.30-5.90) m/uL Hgb 12.4 L (13.0-17.5) gm/dL Hct 38.8 L (39.0-53.0) % Neutrophils # 16.3 H (1.3-7.7) k/uL Lymphocytes # 0.6 L (1.0-4.8) k/uL D-Dimer 0.60 H (<0.60) mg/L FEU Carbon Dioxide 21 L (22-30) mmol/L BUN 39 H (9-20) mg/dL Creatinine 1.95 H (0.66-1.25) mg/dL Glucose 227 H (74-99) mg/dL POC Glucose (mg/dL) (75-99) mg/dL Albumin 3.4 L (3.5-5.0) g/dL 07/20/16 07/20/16 07/20/16 Range/Units 11:32 16:59 20:25 WBC (3.8-10.6) k/uL RBC (4.30-5.90) m/uL Hgb (13.0-17.5) gm/dL Hct (39.0-53.0) % Neutrophils # (1.3-7.7) k/uL Lymphocytes # (1.0-4.8) k/uL D-Dimer (<0.60) mg/L FEU Carbon Dioxide (22-30) mmol/L BUN (9-20) mg/dL Creatinine (0.66-1.25) mg/dL Glucose (74-99) mg/dL POC Glucose (mg/dL) 160 H 172 H 181 H (75-99) mg/dL Albumin (3.5-5.0) g/dL 07/21/16 07/21/16 07/21/16 Range/Units 07:02 08:03 08:03 WBC 17.6 H (3.8-10.6) k/uL RBC 3.99 L (4.30-5.90) m/uL Hgb 12.6 L (13.0-17.5) gm/dL Hct 38.4 L (39.0-53.0) % Neutrophils # 16.6 H (1.3-7.7) k/uL Lymphocytes # 0.5 L (1.0-4.8) k/uL D-Dimer (<0.60) mg/L FEU Carbon Dioxide 20 L (22-30) mmol/L BUN 45 H (9-20) mg/dL Creatinine 1.80 H (0.66-1.25) mg/dL Glucose 129 H (74-99) mg/dL POC Glucose (mg/dL) 143 H (75-99) mg/dL Albumin 3.4 L (3.5-5.0) g/dL Assessment and Plan Plan: Assessment and plan Acute COPD exacerbation: Patient started on IV Solu-Medrol and bronchodilators. Pulmonary service consulted 2. Acute tracheobronchitis: Chest x-ray shows no evidence of pneumonia. Start azithromycin and Rocephin. 3. Episode of chest pain with shortness of breath. Troponin negative 1. EKG showing normal sinus rhythm with sinus arrhythmia 4. Acute kidney injury: Creatinine elevated at 2.02. Patient did take his Lasix twice earlier this week. Discontinue Lasix , hydrochlorothiazide and lisinopril. We'll place him on normal saline at 50 mL an hour and continue to monitor kidney function closely. Improving 5. Acute hypoxic respiratory failure likely related to his COPD and bronchitis. Also ruling out PE. Pulmonary service consulted. 6. Diabetes mellitus type 2: Diet controlled. Place patient on sliding scale coverage. Blood sugars are elevated also due to steroids 7. Hyperkalemia on admission potassium 5.2. now resolved 8. History of prostate cancer with prostate surgery March 2016 9. Essential hypertension: Blood pressures are stable. Monitor closely. Continue with Coreg 10. Hyperlipidemia continue Lipitor Elevated d-dimer CAT scan of the chest without contrast show mild emphysema changes no evidence of a pulmonary mass GI prophylaxis Pepcid and DVT prophylaxis subcu heparin The above dictated assessment and findings were discussed with Dr. Pires. Impression and the plan of care have been dictated as directed. Iva Cannon nurse practitioner acting as a scribe for dr pires
[2016-07-21] MEDS: AZITHROMYCIN 500 MG in SODIUM CHLORIDE 0.9% 250 ML IVPB SCH (10:16)
--- NOTE | 2016-07-21 12:11 | P.PN ---
Subjective Principal diagnosis: Hypoxia Patient seen and examined. Patient states that he is still very short of breath. He underwent computed tomography scan of the chest yesterday and the results are discussed with him. The patient denies fevers and chills. Objective - Vital Signs Vital signs: Vital Signs Temp 97.4 F L 07/21/16 07:00 Pulse 94 07/21/16 07:54 Resp 18 07/21/16 08:00 BP 109/61 07/21/16 07:00 Pulse Ox 88 L 07/21/16 07:54 Intake & Output 07/20/16 07/21/16 07/21/16 18:59 06:59 18:59 Intake Total 240 200 Balance 240 200 Intake: Oral 240 200 Other: Voiding Method Toilet Toilet Toilet Diaper Diaper # Voids 1 2 - Exam Gen.: Patient is alert and oriented 3, no acute distress Cardiovascular: Regular rate and rhythm, S1/S2 Lungs: Scattered expiratory wheezing Abdomen: Soft nontender nondistended positive bowel sounds Extremities: No edema - Labs CBC & Chem 7: 07/21/16 08:03 07/21/16 08:03 Labs: Abnormal Lab Results - Last 24 Hours (Table) 07/20/16 07/20/16 07/21/16 Range/Units 16:59 20:25 07:02 WBC (3.8-10.6) k/uL RBC (4.30-5.90) m/uL Hgb (13.0-17.5) gm/dL Hct (39.0-53.0) % Neutrophils # (1.3-7.7) k/uL Lymphocytes # (1.0-4.8) k/uL Carbon Dioxide (22-30) mmol/L BUN (9-20) mg/dL Creatinine (0.66-1.25) mg/dL Glucose (74-99) mg/dL POC Glucose (mg/dL) 172 H 181 H 143 H (75-99) mg/dL Albumin (3.5-5.0) g/dL 07/21/16 07/21/16 Range/Units 08:03 08:03 WBC 17.6 H (3.8-10.6) k/uL RBC 3.99 L (4.30-5.90) m/uL Hgb 12.6 L (13.0-17.5) gm/dL Hct 38.4 L (39.0-53.0) % Neutrophils # 16.6 H (1.3-7.7) k/uL Lymphocytes # 0.5 L (1.0-4.8) k/uL Carbon Dioxide 20 L (22-30) mmol/L BUN 45 H (9-20) mg/dL Creatinine 1.80 H (0.66-1.25) mg/dL Glucose 129 H (74-99) mg/dL POC Glucose (mg/dL) (75-99) mg/dL Albumin 3.4 L (3.5-5.0) g/dL Assessment and Plan Plan: Acute hypoxic respiratory failure Acute exacerbation of COPD Possible underlying congestive heart failure Mild emphysema By basilar atelectasis and fibrosis, mild Healed granulomatous disease Leukocytosis Acute kidney injury on chronic kidney disease History of prostate cancer Diabetes mellitus type 2 GERD Dyslipidemia Hypertension Degenerative disc disease History of a heart murmur O2 to maintain saturation greater than equal to 88% Antibiotics: Azithromycin and Rocephin Awaiting echocardiogram Continue bronchodilators and Pulmicort IV Solu-Medrol taper Incentive spirometry and pulmonary hygiene Gentle hydration Blood sugar control
[2016-07-21 12:21] LABS: Glucose,Whole Blood 125 mg/dL (75-99)
[2016-07-21] MEDS: LORATADINE 10 MG TAB PO SCH (13:18)
[2016-07-21] MEDS: CHOLECALCIFEROL 1,000 UNIT TAB PO SCH (13:18)
[2016-07-21] MEDS: MAGNESIUM OXIDE 400 MG TAB PO SCH (13:18)
[2016-07-21] MEDS: FERROUS SULFATE 325 MG TAB PO SCH (13:18)
[2016-07-21] MEDS: POLYETHYLENE GLYCOL 3350 17 GM POWD.PACK PO SCH (13:18)
[2016-07-21] MEDS: CALCIUM CARB-VIT D 500MG-200UN 1 EACH TAB PO SCH (13:19)
--- NOTE | 2016-07-21 15:45 | ECHOF ---
Referral Reason:hypoxia, unclear etiology MEASUREMENTS -------- HEIGHT: 177.8 cm WEIGHT: 81.7 kg BP: 109/64 IVSd: 1.1 cm (0.6 - 1.1) LVIDd: 5.3 cm (3.9 - 5.3) LVPWd: 1.1 cm (0.6 - 1.1) LVIDs: 3.5 cm LA Diam: 4.0 cm (2.7 - 3.8) RVIDd: 3.1 cm (< 3.3) LAESV Index (A-L): 33.44 ml/m Ao Diam: 3.3 cm (2.0 - 3.7) AV Cusp: 1.4 cm (1.5 - 2.6) EPSS: 1.0 cm MV E Jonel: 0.91 m/s MV DecT: 268 ms MV A Jonel: 0.98 m/s MV E/A Ratio: 0.92 AV maxP.37 mmHg AV meanP.16 mmHg RAP: 5.00 mmHg RVSP: 33.58 mmHg MV EF SLOPE: 104.92 mm/s (70 - 150) MV EXCURSION: 15.97 mm (> 18.000) FINDINGS -------- Sinus rhythm with extra systolic beats. This was a technically adequate study. The left ventricular size is normal. There is borderline concentric left ventricular hypertrophy. Overall left ventricular systolic function is low-normal with, an EF between 50 - 55 %. The right ventricle is normal in size and function. LA is midly dilated 29-33ml/m2. The right atrium is normal in size. Aortic valve is trileaflet and is moderately thickened. There is moderate aortic stenosis present. Peak/mean gradient across the Aortic Valve is 32.37mmHg / 19.16mmHg. The mitral valve leaflets are mildly thickened. Mild mitral annular calcification present. Mild mitral regurgitation is present. Mild tricuspid regurgitation present. Right ventricular systolic pressure is normal at < 35 mmHg. The pulmonic valve was not well visualized. The aortic root size is normal. The inferior vena cava is mildly dilated. There is no pericardial effusion. CONCLUSIONS -------- 1. Sinus rhythm with extra systolic beats. 2. There is moderate aortic stenosis present. 3. Peak/mean gradient across the Aortic Valve is 32.37mmHg / 19.16mmHg. 4. The mitral valve leaflets are mildly thickened. 5. Mild mitral annular calcification present. 6. Mild mitral regurgitation is present. 7. Mild tricuspid regurgitation present. 8. Right ventricular systolic pressure is normal at < 35 mmHg. 9. The pulmonic valve was not well visualized. 10. The aortic root size is normal. 11. The inferior vena cava is mildly dilated. 12. This was a technically adequate study. 13. There is no pericardial effusion. 14. The left ventricular size is normal. 15. There is borderline concentric left ventricular hypertrophy. 16. Overall left ventricular systolic function is low-normal with, an EF between 50 - 55 %. 17. The right ventricle is normal in size and function. 18. LA is midly dilated 29-33ml/m2. 19. The right atrium is normal in size. 20. Aortic valve is trileaflet and is moderately thickened. MET[employer] PATTERNMAKER APPRENTICE: Keila Croft RDCS
[2016-07-21] MEDS: HYDROcodone/APAP 10-325MG 1 EACH TAB PO PRN (16:15)
[2016-07-21 17:19] LABS: Glucose,Whole Blood 145 mg/dL (75-99)
[2016-07-21 20:29] LABS: Glucose,Whole Blood 158 mg/dL (75-99)
[2016-07-21] MEDS: FAMOTIDINE 20 MG TAB PO SCH (21:14)
[2016-07-21] MEDS: clonazePAM 0.5 MG TAB PO SCH (21:14)
[2016-07-21] MEDS: ATORVASTATIN 20 MG TAB PO SCH (21:14)
[2016-07-21] MEDS: traZODone HCL 50 MG TAB PO SCH (21:15)
[2016-07-21] MEDS: MONTELUKAST 10 MG TAB PO SCH (21:16)
[2016-07-22] MEDS: IPRATROPIUM-ALBUTEROL 3 ML NEB INHALATION SCH ×5 (03:48→19:53)
[2016-07-22] MEDS: SODIUM CHLORIDE 0.9% 1,000 ML IV SCH (06:35)
[2016-07-22 06:52] LABS: Glucose,Whole Blood 150 mg/dL (75-99)
[2016-07-22] MEDS: BUDESONIDE 0.5 MG/2 ML NEBU INHALATION SCH ×2 (07:45→19:53)
[2016-07-22] MEDS: HEPARIN SODIUM,PORCINE 5,000 UNIT/ML 1 ML VIAL SQ SCH ×2 (07:54→16:55)
[2016-07-22] MEDS: CARVEDILOL 12.5 MG TAB PO SCH ×2 (07:54→16:55)
[2016-07-22] MEDS: methylPREDNISolone SOD SUCCI 125 MG/2 ML VIAL IV SCH ×2 (07:55→20:01)
[2016-07-22] MEDS: INSULIN LISPRO (humaLOG) 300 UNIT/3 ML VIAL SQ SCH ×4 (07:55→21:21)
[2016-07-22] MEDS: SERTRALINE 100 MG TAB PO SCH (07:56)
[2016-07-22] MEDS: PANTOPRAZOLE 40 MG TABLET PO SCH (07:56)
[2016-07-22] MEDS: AZITHROMYCIN 500 MG in SODIUM CHLORIDE 0.9% 250 ML IVPB SCH (08:38)
[2016-07-22 09:40] LABS: Basophils % (A) 0 %; CH 30.5; CHCM 31.4; Eosinophils % (A) 0 %; HCT 42.1 % (39.0-53.0); HDW 2.13; HGB 13.1 gm/dL (13.0-17.5); Luc # (Auto) 0.06; Luc % (Auto) 0; Lymphocytes # (A) 0.6 k/uL (1.0-4.8); Lymphocytes % (A) 4 %; MCH 30.4 pg (25.0-35.0); MCHC 31.1 g/dL (31.0-37.0); MCV 97.6 fL (80.0-100.0); Mean Platelet Volume 7.3; Monocytes # (A) 0.4 k/uL (0-1.0); Monocytes % (A) 3 %; Neutrophils # (A) 13.4 k/uL (1.3-7.7); Neutrophils % (A) 93 %; RBC 4.32 m/uL (4.30-5.90); WBC 14.4 k/uL (3.8-10.6); WBC (Perox) 15.32
[2016-07-22 10:04] LABS: Potassium 4.5 mmol/L (3.5-5.1); Total Bilirubin 0.4 mg/dL (0.2-1.3); Total Protein 6.5 g/dL (6.3-8.2)
--- NOTE | 2016-07-22 10:47 | P.PN ---
Subjective 81-year-old being seen in rounds this morning. Is sitting up in bed. Patient states breathing feels improved. Patient currently on 2 L nasal cannula sats are 95% patients being followed by pulmonology service being treated for acute exacerbation of COPD. Objective - Vital Signs Vital signs: Vital Signs Temp 97.1 F L 07/22/16 07:00 Pulse 80 07/22/16 08:02 Resp 16 07/22/16 07:00 BP 108/52 07/22/16 07:00 Pulse Ox 95 07/22/16 07:00 Intake & Output 07/21/16 07/22/16 07/22/16 18:59 06:59 18:59 Intake Total 540 925 Balance 540 925 Intake: Oral 540 925 Other: Voiding Method Toilet Toilet Diaper Diaper # Voids 2 2 # Bowel Movements 1 1 - Exam Physical exam 81-year-old gentleman sitting up in bed pleasant cooperative oriented 3 states breathing feels improved Lungs posterior diminished at the bases poor air entry no wheezing noted dry cough noted sats on 2 L 95% no conversational dyspnea noted Heart S1-S2 audible and regular denying chest pain when questioning Abdomen soft nontender reports no nausea vomiting no frequent stooling not distended Extremities a trace pedal edema bilaterally - Labs CBC & Chem 7: 07/22/16 09:03 07/21/16 08:03 Labs: Abnormal Lab Results - Last 24 Hours (Table) 07/21/16 07/21/16 07/21/16 Range/Units 12:12 17:12 20:25 WBC (3.8-10.6) k/uL Neutrophils # (1.3-7.7) k/uL Lymphocytes # (1.0-4.8) k/uL POC Glucose (mg/dL) 125 H 145 H 158 H (75-99) mg/dL 07/22/16 07/22/16 Range/Units 06:50 09:03 WBC 14.4 H (3.8-10.6) k/uL Neutrophils # 13.4 H (1.3-7.7) k/uL Lymphocytes # 0.6 L (1.0-4.8) k/uL POC Glucose (mg/dL) 150 H (75-99) mg/dL Assessment and Plan Plan: Assessment and plan Acute COPD exacerbation: Patient started on IV Solu-Medrol and bronchodilators. Pulmonary service consulted 2. Acute tracheobronchitis: Chest x-ray shows no evidence of pneumonia. Start azithromycin and Rocephin. 3. Episode of chest pain with shortness of breath. Troponin negative 1. EKG showing normal sinus rhythm with sinus arrhythmia 4. Acute kidney injury: Creatinine elevated at 2.02. Patient did take his Lasix twice earlier this week. Discontinue Lasix , hydrochlorothiazide and lisinopril. We'll place him on normal saline at 50 mL an hour and continue to monitor kidney function closely. Improving 5. Acute hypoxic respiratory failure likely related to his COPD and bronchitis. Also ruling out PE. Pulmonary service consulted. 6. Diabetes mellitus type 2: Diet controlled. Place patient on sliding scale coverage. Blood sugars are elevated also due to steroids 7. Hyperkalemia on admission potassium 5.2. now resolved 8. History of prostate cancer with prostate surgery March 2016 9. Essential hypertension: Blood pressures are stable. Monitor closely. Continue with Coreg 10. Hyperlipidemia continue Lipitor Elevated d-dimer CAT scan of the chest without contrast show mild emphysema changes no evidence of a pulmonary mass GI prophylaxis Pepcid and DVT prophylaxis subcu heparin Echocardiogram on July 21 left ventricular systolic function EF between 50 and 55% with borderline concentric left ventricular hypertrophy Echocardiogram on 07/21/2016 moderate aortic stenosis Chronic congestive heart failure diastolic dysfunction with valvular heart disease no evidence of decompensation The above dictated assessment and findings were discussed with Dr. Pires. Impression and the plan of care have been dictated as directed. Iva Cannon nurse practitioner acting as a scribe for dr pires
[2016-07-22] MEDS: FERROUS SULFATE 325 MG TAB PO SCH (12:25)
[2016-07-22] MEDS: LORATADINE 10 MG TAB PO SCH (12:25)
[2016-07-22] MEDS: POLYETHYLENE GLYCOL 3350 17 GM POWD.PACK PO SCH ×2 (12:25→12:27)
[2016-07-22] MEDS: CHOLECALCIFEROL 1,000 UNIT TAB PO SCH (12:25)
[2016-07-22] MEDS: MAGNESIUM OXIDE 400 MG TAB PO SCH (12:25)
[2016-07-22] MEDS: CALCIUM CARB-VIT D 500MG-200UN 1 EACH TAB PO SCH (12:25)
[2016-07-22 12:28] LABS: Glucose,Whole Blood 124 mg/dL (75-99)
--- NOTE | 2016-07-22 12:46 | PN ---
81-year-old male who came into hospital with acute COPD exacerbation. Clinically patient is doing well. Cough, congestion, shortness breath has improved. Breathing much better. His last set of vitals include blood pressure is 110/50, respiratory rate 18, pulse 70, temperature 98, saturation 95% on 2 liters oxygen. HEENT: Unremarkable. NECK: Supple. LUNGS: Good air entry bilaterally. HEART: Regular rate and rhythm. S1 and S2 audible. ABDOMEN: Soft. No rebound or rigidity. EXTREMITIES: +1 peripheral pulses. NEUROLOGICAL EXAMINATION: Otherwise, awake and alert. CT scan of the chest reviewed and revealed emphysema fibrotic changes with basal atelectasis, old granulomatous healed lesions were seen with atherosclerotic changes. Mild fibrotic changes were noted as well. IMPRESSION: 1. Acute chronic obstructive pulmonary disease exacerbation. 2. Purulent tracheobronchitis. 3. Acute hypoxic respiratory failure related to above. 4. Subsegmental atelectasis with old healed granulomatous disease. PLAN: As above. Continue supportive care. Increase activity as tolerated. Agree with discharge planning.
[2016-07-22 16:56] LABS: Glucose,Whole Blood 184 mg/dL (75-99)
[2016-07-22] MEDS: FAMOTIDINE 20 MG TAB PO SCH (20:00)
[2016-07-22] MEDS: MONTELUKAST 10 MG TAB PO SCH (20:01)
[2016-07-22] MEDS: ATORVASTATIN 20 MG TAB PO SCH (20:01)
[2016-07-22] MEDS: traZODone HCL 50 MG TAB PO SCH (20:01)
[2016-07-22] MEDS: clonazePAM 0.5 MG TAB PO SCH (20:03)
[2016-07-22 21:06] LABS: Glucose,Whole Blood 182 mg/dL (75-99)
[2016-07-22 23:22] VITALS: RESP 18
[2016-07-23] MEDS: IPRATROPIUM-ALBUTEROL 3 ML NEB INHALATION SCH ×4 (00:39→11:19)
[2016-07-23] MEDS: HEPARIN SODIUM,PORCINE 5,000 UNIT/ML 1 ML VIAL SQ SCH ×2 (00:44→07:59)
[2016-07-23] MEDS: SODIUM CHLORIDE 0.9% 1,000 ML IV SCH (00:45)
[2016-07-23] MEDS: BUDESONIDE 0.5 MG/2 ML NEBU INHALATION SCH (07:39)
[2016-07-23] MEDS: INSULIN LISPRO (humaLOG) 300 UNIT/3 ML VIAL SQ SCH ×2 (07:59→12:32)
[2016-07-23] MEDS: SERTRALINE 100 MG TAB PO SCH (07:59)
[2016-07-23] MEDS: PANTOPRAZOLE 40 MG TABLET PO SCH (07:59)
[2016-07-23] MEDS: CARVEDILOL 12.5 MG TAB PO SCH (07:59)
[2016-07-23] MEDS: methylPREDNISolone SOD SUCCI 125 MG/2 ML VIAL IV SCH (07:59)
[2016-07-23 08:15] LABS: Glucose,Whole Blood 137 mg/dL (75-99)
[2016-07-23] MEDS ORDERED: AZITHROMYCIN 500 MG TAB PO SCH (09:00)
[2016-07-23 09:22] LABS: Basophils % (A) 0 %; CHCM 32.4; Eosinophils % (A) 0 %; HCT 39.8 % (39.0-53.0); HGB 12.9 gm/dL (13.0-17.5); Luc # (Auto) 0.08; Luc % (Auto) 1; Lymphocytes # (A) 0.8 k/uL (1.0-4.8); Lymphocytes % (A) 5 %; MCH 31.2 pg (25.0-35.0); MCHC 32.4 g/dL (31.0-37.0); MCV 96.2 fL (80.0-100.0); Mean Platelet Volume 8.2; Monocytes # (A) 0.5 k/uL (0-1.0); Monocytes % (A) 4 %; Neutrophils # (A) 12.6 k/uL (1.3-7.7); Neutrophils % (A) 90 %; RBC 4.14 m/uL (4.30-5.90); RDW 14.2 % (11.5-15.5); WBC (Perox) 14.82
[2016-07-23 09:31] VITALS: BP 119/66; TEMP 96
[2016-07-23 09:32] LABS: ALT 199 U/L (21-72); AST 127 U/L (17-59); Alkaline Phosphatase 70 U/L (38-126); Anion Gap 9 mmol/L; Blood Urea Nitrogen 42 mg/dL (9-20); Calcium 9.1 mg/dL (8.4-10.2); Carbon Dioxide 25 mmol/L (22-30); Chloride 108 mmol/L (98-107); Glucose 169 mg/dL (74-99); Non-African American GFR(MDRD) 53 (>60 ml/min/1.73 sqM); Potassium 4.5 mmol/L (3.5-5.1); Sodium 142 mmol/L (137-145); Total Bilirubin 0.5 mg/dL (0.2-1.3); Total Protein 6.1 g/dL (6.3-8.2)
[2016-07-23 11:30] VITALS: PULSE 88
--- NOTE | 2016-07-23 11:30 | P.DS ---
Providers Date of admission: 07/19/16 14:03 Expected date of discharge: 07/23/16 Attending physician: Caden Pires Consults: Dr. Mcdonnell Primary care physician: Lise John Hospital Course: Discharge diagnosis 1. Acute COPD exacerbation: Treated with steroids and bronchodilators. Pulmonary service evaluated patient 2. Acute tracheobronchitis: Chest x-ray shows no evidence of pneumonia. Continue azithromycin for 3 more days 3. Episode of chest pain with shortness of breath. Check d-dimer is elevated will do further PE workup.Troponin negative 1. EKG showing normal sinus rhythm with sinus arrhythmia. Patient did have elevated d-dimer. VQ scan completed showing low probability of PE. Unable to complete a CTA due to kidney injury 4. Acute kidney injury: Creatinine elevated at 2.02. Patient did take his Lasix twice earlier this week. Discontinue Lasix , hydrochlorothiazide and lisinopril. We'll place him on normal saline at 50 mL an hour and continue to monitor kidney function closely. Creatinine at discharge is 1.29. Will recommending discontinuing Lasix for now. Patient can be restarted on his hydrochlorothiazide and lisinopril. We'll have him follow up with his PCP on Saturday for further blood work 5. Acute hypoxic respiratory failure likely related to his COPD and bronchitis. Patient will require home oxygen. When ambulating on room air he drops down to 87% 6. Diabetes mellitus type 2: Diet controlled. Place patient on sliding scale coverage. Blood sugars are elevated also due to steroids 7. Hyperkalemia on admission potassium 5.2. now resolved 8. History of prostate cancer with prostate surgery March 2016 9. Essential hypertension: Blood pressures are stable. Monitor closely. Continue with Coreg 10. Hyperlipidemia 11. Echo showing moderate aortic stenosis 12. Chronic diastolic congestive heart failure with valvular heart disease. No evidence of decompensation 13. Elevated LFTs at discharge: AST 127 and ALT 199. No abdominal pain. At this time we'll hold his statin. Recommend checking LFTs in 1 week Hospital course This is a 81-year-old male who presented with shortness of breath and chest pain. In the emergency room he was found to be hypoxemic with oxygen saturations and 80s. Chest x-ray showed chronic evidence of a change with no acute change. EKG had shown normal sinus rhythm with sinus arrhythmia. He did have evidence of an acute kidney injury with a creatinine of 2.02. Patient was started on IV steroids bronchodilators. Pulmonary service was consulted. He also had an elevated d-dimer and VQ scan was completed showing low probability of PE. Patient also had a CT of the chest with no contrast showing mild emphysema and fibrotic changes and some segmental atelectasis at the lung bases. Healed granulomatous disease. Patient's breathing did improve. He will require home oxygen. He does stay at 87% on room air with ambulating. Patient will continue prednisone taper and 3 more days of antibiotics in the form of azithromycin for his bronchitis and COPD exacerbation. Kidney functions have also shown improvement. Creatinine at 1.29 at discharge. At this time recommending continuing holding Lasix. It is okay to resume the hydrochlorothiazide and lisinopril. With him follow up with his PCP on Saturday to check kidney functions and monitor blood pressures. Patient will follow-up with pulmonary service in 1 week. Patient is medically stable for discharge. Please refer to chart for any further details. Patient Condition at Discharge: Stable Plan - Discharge Summary New Discharge Prescriptions: Azithromycin [Zithromax] 500 mg PO DAILY #3 tab predniSONE 10 mg PO DIRECTED #20 tab Discharge Medication List Albuterol Sulfate [Proair Hfa] 2 puff INHALATION RT-Q6H PRN 08/25/15 [History] Atorvastatin [Lipitor] 20 mg PO HS 08/25/15 [History] Budesonide [Pulmicort] 0.5 mg INHALATION RT-BID@0900,2100 08/25/15 [History] Calcium Carb-Vit D 500Mg-200Un [Oscal 500+D] 1 tab PO DAILY@119908/25/15 [ History] Carvedilol [Coreg*] 12.5 mg PO BID 08/25/15 [History] Cetirizine HCl [Zyrtec] 10 mg PO DAILY@119908/25/15 [History] Cholecalciferol [Vitamin D3] 2,000 unit PO DAILY@119908/25/15 [History] Ferrous Sulfate [Iron (65 MG Elemental)] 325 mg PO DAILY@119908/25/15 [History] Fish Oil/Dha/Epa [Fish Oil 1,200 mg Fish Oil] 1 cap PO DAILY@119908/25/15 [ History] HYDROcodone/APAP 10-325MG [[place] 10-325] 1 tab PO Q6H PRN 08/25/15 [History] Lisinopril-Hctz 20-25 mg [Zestoretic 20-25] 1 tab PO QAM 08/25/15 [History] Magnesium 200 mg PO DAILY@1200 08/25/15 [History] Montelukast [Singulair] 10 mg PO HS 08/25/15 [History] Omeprazole 20 mg PO QAM 08/25/15 [History] Polyethylene Glycol 3350 [Miralax] 17 gm PO DAILY@1200 08/25/15 [History] Ranitidine HCl [Zantac] 300 mg PO HS 08/25/15 [History] traZODone HCL [Desyrel] 50 mg PO HS 08/25/15 [History] Albuterol Nebulized [Ventolin Nebulized] 2.5 mg INHALATION RT-QID@03,09,, [History] Ipratropium Nebulized [Atrovent Nebulized] 0.5 mg INHALATION RT-QID@03,,,07/19/16 [History] Sertraline [Zoloft] 100 mg PO DAILY 07/19/16 [History] clonazePAM [Clonazepam] 0.5 mg PO HS 07/19/16 [History] Azithromycin [Zithromax] 500 mg PO DAILY #3 tab 07/23/16 [Rx] predniSONE 10 mg PO DIRECTED #20 tab 07/23/16 [Rx] Follow up Appointment(s)/Referral(s): Lise John DO [Primary Care Provider] - 3 Days Juan Pablo Mcdonnell MD [STAFF PHYSICIAN] - 1 Week Activity/Diet/Wound Care/Special Instructions: Diet: cardiac Activity: as tolerated Discharge Disposition: HOME SELF-CARE
[2016-07-23 11:57] LABS: Glucose,Whole Blood 168 mg/dL (75-99)
[2016-07-23] MEDS: FERROUS SULFATE 325 MG TAB PO SCH (12:32)
[2016-07-23] MEDS: MAGNESIUM OXIDE 400 MG TAB PO SCH (12:32)
[2016-07-23] MEDS: POLYETHYLENE GLYCOL 3350 17 GM POWD.PACK PO SCH (12:32)
[2016-07-23] MEDS: LORATADINE 10 MG TAB PO SCH (12:32)
[2016-07-23] MEDS: CALCIUM CARB-VIT D 500MG-200UN 1 EACH TAB PO SCH (12:32)
[2016-07-23] MEDS: CHOLECALCIFEROL 1,000 UNIT TAB PO SCH (12:32)
[2016-07-23] MEDS: HYDROcodone/APAP 10-325MG 1 EACH TAB PO PRN (12:48)
== END 2016-07-23 15:36 | disposition home or self-care (01) | DRG 190 ==
LOC: EC 10:26 → 4MS4W 14:03
PROVIDERS: ADMIT Internal Medicine; ATTEND Internal Medicine
DX: J44.0 Chronic obstructive pulmonary disease with (acute) lower respiratory infection (principal); J96.01 Acute respiratory failure with hypoxia; N17.9 Acute kidney failure, unspecified; I50.32 Chronic diastolic (congestive) heart failure; J98.11 Atelectasis; J44.1 Chronic obstructive pulmonary disease with (acute) exacerbation; E87.5 Hyperkalemia; I11.0 Hypertensive heart disease with heart failure; E11.9 Type 2 diabetes mellitus without complications; I35.0 Nonrheumatic aortic (valve) stenosis; J20.9 Acute bronchitis, unspecified; J45.909 Unspecified asthma, uncomplicated; E78.5 Hyperlipidemia, unspecified; K21.9 Gastro-esophageal reflux disease without esophagitis; K57.90 Diverticulosis of intestine, part unspecified, without perforation or abscess without bleeding; K44.9 Diaphragmatic hernia without obstruction or gangrene; H26.9 Unspecified cataract; Z85.820 Personal history of malignant melanoma of skin; Z96.653 Presence of artificial knee joint, bilateral; Z87.891 Personal history of nicotine dependence; Z85.46 Personal history of malignant neoplasm of prostate; Z90.79 Acquired absence of other genital organ(s); Z87.442 Personal history of urinary calculi; Z79.51 Long term (current) use of inhaled steroids; Z79.899 Other long term (current) drug therapy
CPT/HCPCS: 36415; 71020; 71250; 78582; 80053; 82550; 82553; 83735; 83880; 84484; 85025; 85379; 85610; 85730; 87040; 93005; 93306; 94640; 94760; 96365; 96375; 99285

== ENCOUNTER 2016-08-29 08:01 | Day surgery (SDC) | payer MEDICARE, BC ==
[2016-08-28 08:53] VITALS: BMI 26.5
[~2016-08-29 08:01] MED LIST: ALPRAZolam 0.25 MG TAB PO PRN; ALPRAZolam 0.5 MG TAB PO PRN; ASPIRIN 325 MG TAB PO STA; ATORVASTATIN 80 MG TAB PO STA; BENZOCAINE SPRAY 100 APPLIC/CAN TOPICAL PRN; NITROGLYCERIN SL TABS 0.4 MG TAB SUBLINGUAL PRN; SODIUM CHLORIDE 0.9% 1,000 ML in EMPTY BAG 1 BAG IV ONE
[2016-08-29] MEDS ORDERED: IPRATROPIUM-ALBUTEROL 3 ML NEB INHALATION ONE (09:30)
[2016-08-29] MEDS: SODIUM CHLORIDE 0.9% 1,000 ML IV SCH ×3 (09:53→21:11)
[2016-08-29 10:11] LABS: Glucose,Whole Blood 101 mg/dL (75-99)
[2016-08-29] MEDS ORDERED: fentaNYL (PF) 50 MCG/ML 2 ML AMP ONE ×2 (11:42→12:35)
[2016-08-29] MEDS ORDERED: MIDAZOLAM 2 MG/2 ML VIAL ONE (11:42)
[2016-08-29] MEDS ORDERED: BENZOCAINE SPRAY 100 APPLIC/CAN MUCOUS MEM ONE (11:58)
[2016-08-29] MEDS ORDERED: fentaNYL (PF) 50 MCG/ML 2 ML AMP IV ONE ×2 (12:04→12:39)
[2016-08-29] MEDS ORDERED: MIDAZOLAM 2 MG/2 ML VIAL IVP ONE (12:04)
[2016-08-29] MEDS ORDERED: LIDOCAINE 2% INJ 20 MG/ML (20 ML MDV) ONE (12:13)
--- NOTE | 2016-08-29 12:24 | P.PCN ---
Date of Procedure: 08/29/16 Preoperative Diagnosis: Shortness of breath and moderate aortic stenosis. Postoperative Diagnosis: Moderate to severe aortic stenosis. Preserved LV function. 2+ mitral regurgitation Procedure(s) Performed: Transesophageal echocardiogram Description of Procedure: INDICATION : Assessment of aortic stenosis CONSENT: Verbal consent is obtained from patient and family PROCEDURE: Patient was brought to the lab in a fasting state. He was prepped and draped in the usual fashion. IV sedation was given with Versed and fentanyl. A lubricated Omni probe was introduced into the oropharynx and was advanced into the esophagus and multiple views were obtained both from the esophagus and stomach. Patient tolerated the procedure well. Color ,pulsed and continuous-wave Doppler were performed. Saline bubble contrast injection was also performed Conscious sedation: Patient was given IV Versed 1 mg and fentanyl 25 mg for sedation. The duration is about 15 minutes FINDINGS: The aortic valve is heavily calcified with reduced opening excursion. By planimetry valve area of about 1.3-1.5 cm is obtained suggestive of moderate aortic stenosis. No significant regurgitation is noted. Mitral valve shows about 2+ mitral regurgitation the central. Otherwise mitral valve structure appears to be normal. Left atrial appendage is free of any clot. Left ankle function appears to be normal. Interatrial septum is intact without any shunt. Injection of the saline contrast bubble did not reveal any crossing of the bubbles across the interatrial septum IMPRESSION: #1. No PFO #2. No clot in left atrial appendage #3. Moderate aortic stenosis. #4. 2+ mitral regurgitation. #5. Preserved LV function PLAN: Maximum medical therapy. Further evaluation to rule out underlying ischemic heart disease.
[2016-08-29] MEDS ORDERED: IV FLUID CONTINUATION 1,000 ML IV ONE (12:39)
[2016-08-29] MEDS ORDERED: LIDOCAINE 2% INJ 20 MG/ML SQ ONE (12:41)
[2016-08-29] MEDS ORDERED: RX INFO: IV CONTRAST WAS GIVEN 1 EACH MISC MISCELLANE PRN ×2 (13:06→13:26)
[2016-08-29] MEDS ORDERED: IODIXANOL 320 MG/ML 100 ML INTRAARTER ONE (13:13)
[2016-08-29] MEDS ORDERED: clonazePAM 0.5 MG TAB PO PRN (13:29)
[2016-08-29] MEDS ORDERED: HYDROcodone/APAP 10-325MG 1 EACH TAB PO PRN (13:29)
[2016-08-29] MEDS ORDERED: ALBUTEROL NEBULIZED 2.5 MG/3 ML INHALATION PRN (13:29)
[2016-08-29] MEDS ORDERED: SODIUM CHLORIDE 0.9% 1,000 ML IV SCH (13:30)
[2016-08-29] MEDS ORDERED: IPRATROPIUM 0.5 MG/2.5 ML NEBU INHALATION SCH (16:00)
[2016-08-29] MEDS ORDERED: ALBUTEROL NEBULIZED 2.5 MG/3 ML INHALATION SCH (16:00)
[2016-08-29] MEDS ORDERED: IPRATROPIUM-ALBUTEROL 3 ML NEB INHALATION PRN (16:13)
[2016-08-29] MEDS: IPRATROPIUM-ALBUTEROL 3 ML NEB INHALATION SCH ×2 (16:43→21:27)
[2016-08-29] MEDS: CARVEDILOL 12.5 MG TAB PO SCH (19:09)
[2016-08-29] MEDS ORDERED: FAMOTIDINE 20 MG TAB PO SCH (21:00)
[2016-08-29] MEDS ORDERED: MONTELUKAST 10 MG TAB PO SCH (21:00)
[2016-08-29] MEDS ORDERED: traZODone HCL 50 MG TAB PO SCH (21:00)
[2016-08-29] MEDS: guaiFENesin 600 MG TABLET.ER PO SCH (21:11)
[2016-08-29] MEDS: BUDESONIDE 0.5 MG/2 ML NEBU INHALATION SCH (21:27)
[2016-08-30 04:30] VITALS: RESP 18
[2016-08-30] MEDS: SODIUM CHLORIDE 0.9% 1,000 ML IV SCH (05:01)
[2016-08-30] MEDS ORDERED: PANTOPRAZOLE 40 MG TABLET PO SCH (07:30)
[2016-08-30] MEDS: CARVEDILOL 12.5 MG TAB PO SCH (08:23)
[2016-08-30] MEDS: guaiFENesin 600 MG TABLET.ER PO SCH (08:23)
[2016-08-30 08:30] VITALS: BP 125/72; PULSE 92; TEMP 97.8
[2016-08-30] MEDS: IPRATROPIUM-ALBUTEROL 3 ML NEB INHALATION SCH (09:00)
[2016-08-30] MEDS ORDERED: LISINOPRIL-HCTZ 20-25 MG 1 EACH TAB PO SCH (09:00)
[2016-08-30] MEDS ORDERED: SERTRALINE 100 MG TAB PO SCH (09:00)
[2016-08-30] MEDS: BUDESONIDE 0.5 MG/2 ML NEBU INHALATION SCH (09:00)
[2016-08-30] MEDS ORDERED: NON-FORMULARY DRUG (Fish Oil/Dha/Epa [Fish Oil 1,200 Mg Fish Oil] 1 CAP) PO SCH (12:00)
[2016-08-30] MEDS ORDERED: FERROUS SULFATE 325 MG TAB PO SCH (12:00)
[2016-08-30] MEDS ORDERED: CALCIUM CARB-VIT D 500MG-200UN 1 EACH TAB PO SCH (12:00)
[2016-08-30] MEDS ORDERED: POLYETHYLENE GLYCOL 3350 17 GM POWD.PACK PO SCH (12:00)
[2016-08-30] MEDS ORDERED: CHOLECALCIFEROL 1,000 UNIT TAB PO SCH (12:00)
[2016-08-30] MEDS ORDERED: MAGNESIUM OXIDE 400 MG TAB PO SCH (12:00)
[2016-08-30] MEDS ORDERED: LORATADINE 10 MG TAB PO SCH (12:00)
--- NOTE | 2016-08-30 12:33 | P.DS ---
Providers Date of admission: 08/29/2016 Attending physician: Lakshmi Vilchis Primary care physician: Lise John - Discharge Diagnosis(es) (1) Aortic stenosis Status: Acute (2) COPD with exacerbation Status: Acute (3) Chest pain Status: Acute (4) CAD (coronary artery disease) Status: Acute Hospital Course: This 81-year-old gentleman with history of COPD, CAD and aortic stenosis was recently in the hospital with increasing shortness of breath. It was felt the problem could be multifactorial including exacerbation of COPD and also contribution for mild aortic stenosis. His echocardiogram showed evidence of moderate aortic stenosis. Because of continued symptoms of shortness of breath. Patient is advised to have REYMUNDO examination and also cardiac catheterization to assess the significance of aortic stenosis and also to rule out any underlying ischemic heart disease. Patient underwent a REYMUNDO examination which showed evidence of moderate aortic stenosis with a valve area of about 1.3 -1.5. Cardiac catheterization showed extensive calcification of the coronary system but without any significant focal occlusive disease. Patient is advised that maximum medical therapy. Because of his renal failure, patient was hydrated. Patient seemed to be feeling better today. His groin is soft without any hematoma. Patient is being discharged home in a stable condition. Follow-up in the office in one week. Plan - Discharge Summary Discharge Medication List Albuterol Sulfate [Proair Hfa] 2 puff INHALATION RT-Q6H PRN 08/25/15 [History] Budesonide [Pulmicort] 0.5 mg INHALATION RT-BID@0900,2100 08/25/15 [History] Calcium Carb-Vit D 500Mg-200Un [Oscal 500+D] 1 tab PO DAILY@119908/25/15 [ History] Carvedilol [Coreg*] 12.5 mg PO BID 08/25/15 [History] Cetirizine HCl [Zyrtec] 10 mg PO DAILY@119908/25/15 [History] Cholecalciferol [Vitamin D3] 2,000 unit PO DAILY@119908/25/15 [History] Ferrous Sulfate [Iron (65 MG Elemental)] 325 mg PO DAILY@119908/25/15 [History] Fish Oil/Dha/Epa [Fish Oil 1,200 mg Fish Oil] 1 cap PO DAILY@119908/25/15 [ History] HYDROcodone/APAP 10-325MG [[place] 10-325] 1 tab PO Q6H PRN 08/25/15 [History] Lisinopril-Hctz 20-25 mg [Zestoretic 20-25] 1 tab PO QAM 08/25/15 [History] Magnesium 200 mg PO DAILY@1200 08/25/15 [History] Montelukast [Singulair] 10 mg PO HS 08/25/15 [History] Omeprazole 20 mg PO QAM 08/25/15 [History] Polyethylene Glycol 3350 [Miralax] 17 gm PO DAILY@1200 08/25/15 [History] Ranitidine HCl [Zantac] 300 mg PO HS 08/25/15 [History] traZODone HCL [Desyrel] 50 mg PO HS 08/25/15 [History] Albuterol Nebulized [Ventolin Nebulized] 2.5 mg INHALATION QID 07/19/16 [History ] Ipratropium Nebulized [Atrovent Nebulized] 0.5 mg INHALATION QID 07/19/16 [ History] Sertraline [Zoloft] 100 mg PO DAILY 07/19/16 [History] clonazePAM [Clonazepam] 0.5 mg PO HS PRN 07/19/16 [History] Aspirin 81 mg PO ONCE 08/29/16 [History] Follow up Appointment(s)/Referral(s): Lakshmi Vilchis MD [STAFF PHYSICIAN] - 09/10/16 4:00 pm Patient Instructions/Handouts: Heart Catheterization (DC) Activity/Diet/Wound Care/Special Instructions: See activity restriction sheet. Discharge Disposition: HOME SELF-CARE
--- NOTE | 2016-08-30 12:41 | P.PCN ---
Date of Procedure: 08/29/16 Preoperative Diagnosis: Coronary artery disease aortic stenosis and COPD and CHF Postoperative Diagnosis: Moderate aortic stenosis. Diffuse calcified coronary plaque without any focal occlusive disease Procedure(s) Performed: Left heart catheterization Description of Procedure: HISTORY: This is a 81-year-old gentleman with history of known coronary artery disease and aortic stenosis who has been experiencing increasing shortness of breath. Patient is advised to have a cardiac catheterization to rule out significant aortic stenosis and also to assess for underlying ischemic heart disease CONSENT:I have discussed the risks, benefits and alternative therapies for the above-mentioned procedure and for both sedation/analgesia as well as necessary blood product administration, if indicated, as they pertain to this patient. The patient has indicated understanding and acceptance of the risks and procedures discussed. PROCEDURE: Patient was brought to the lab in a fasting state. Patient was given some IV sedation. The right groin is infiltrated with lidocaine and right femoral artery was entered using Seldinger technique. A 6-Green[place] catheter was left in place and selective coronary arteriography and left ventriculography was performed. Patient tolerated the procedure well. Femoral angiogram was performed and Angio-Seal was applied for hemostasis. No immediate complications were noted and patient was transferred to [facility] in a stable condition HEMODYNAMICS: The aortic pressure is 120/60. There was a gradient of about 24, peak to peak across the aortic valve with a mean gradient of about 16 suggestive of mild aortic stenosis. The left ventricle systolic blood pressure was 16. SELECTIVE CORONARY ARTERIOGRAPHY: LEFT MAIN: Normal length and patent. Heavily calcified THE LEFT ANTERIOR DESCENDING CORONARY ARTERY: This is a good caliber vessel, again showing heavy calcification in the proximal and mid segments. There is about 20-30% luminal narrowing in the mid section. Rest of the LAD is free of any significant focal lesion THE LEFT CIRCUMFLEX AND IS CORONARY ARTERY: This is again a good caliber vessel giving rise to the moderate caliber OM branch and PLV branches. The vessel is free of any significant focal lesions THE RIGHT CORONARY ARTERY: this is a moderate caliber vessel. Show significant calcification in the proximal segment without any focal occlusive disease. LEFT VENTRICULOGRAPHY: not performed FINAL IMPRESSION:. Mild to moderate aortic stenosis. Calcific coronary disease without any focal occlusive disease. PLAN: Maximum medical therapy with risk factor modification PROGNOSIS: guarded
== END 2016-08-30 11:39 | disposition home or self-care (01) ==
LOC: CATHCVL 08:01 → 3OBS 15:51 → CATHCVL 08-30 11:39
PROVIDERS: ATTEND Internal Medicine Cardiovascular Disease
DX: I35.0 Nonrheumatic aortic (valve) stenosis (principal); I34.0 Nonrheumatic mitral (valve) insufficiency; I35.8 Other nonrheumatic aortic valve disorders; I10 Essential (primary) hypertension; E78.5 Hyperlipidemia, unspecified; J44.9 Chronic obstructive pulmonary disease, unspecified; I25.10 Atherosclerotic heart disease of native coronary artery without angina pectoris; Z85.46 Personal history of malignant neoplasm of prostate; Z87.891 Personal history of nicotine dependence; Z79.51 Long term (current) use of inhaled steroids; Z79.899 Other long term (current) drug therapy; Z88.1 Allergy status to other antibiotic agents; Z88.8 Allergy status to other drugs, medicaments and biological substances
CPT/HCPCS: 94640 ×4; 94760; 93312; 93320; 93325; 93458; 99152; C1894; C1769; J2001; J2250; Q9967; J3010

== ENCOUNTER → 2017-04-16 | Outpatient (CLI) | payer MEDICARE, BC ==
--- NOTE | 2017-04-16 19:01 | CT ---
EXAMINATION TYPE: CT sinus wo con DATE OF EXAM: 04/16/2017 COMPARISON: NONE HISTORY: frequent bloody noses per patient. Nasal mass per order. CT DLP: 606 mGycm. Automated Exposure Control for Dose Reduction was Utilized. TECHNIQUE: CT scan of the sinuses is performed without contrast, axial images are obtained, coronal r eformatted images are also reviewed. FINDINGS: The paranasal sinuses including the frontal, ethmoid, sphenoid, and maxillary sinuses bila terally are well-aerated without abnormal opacification. The ostiomeatal complex is patent bilateral ly on the coronal images. Nasal septum is deviated to right of midline. No suspicious intranasal mass es are identified. Visualized portion of mastoid air cells show no abnormal opacification. The globes are intact bilate rally. Some calcified plaque distal internal carotid arteries bilaterally is present. Visualized por tion of brain parenchyma shows generalized atrophy and chronic small vessel ischemic change. IMPRESSION: The sinuses are clear and the ostiomeatal complex is patent bilaterally. No suspicious n leonor mass identified.
== END | disposition home or self-care (01) ==
LOC: RADCTMAIN 14:54
PROVIDERS: ATTEND Otolaryngology
DX: J34.89 Other specified disorders of nose and nasal sinuses (principal)
CPT/HCPCS: 36415; 70486; 82565; 84520

== ENCOUNTER 2017-05-06 08:37 | Day surgery (SDC) | payer MEDICARE, BC ==
[2017-05-03 11:45] VITALS: BMI 27.5
--- NOTE | 2017-05-05 16:06 | HP ---
HISTORY AND PHYSICAL CHIEF COMPLAINT: Recurrent right epistaxis. HISTORY OF PRESENT ILLNESS: This patient is a very pleasant 81-year-old male who was recently seen in my office with complaints of recurrent episodes of epistaxis. The patient states that the bleeding began intermittently in January of 2017. He states that he has had his nose cauterized by his family physician several times. He denies being on any blood thinners and he is a nonsmoker. At the time that he was seen in my office clinical examination revealed several blood vessels on the right septum that had previously bled, but were not actively bleeding. The patient was placed on a course of intranasal antibiotic ointment and Keflex capsules 500 mg p.o. b.i.d. and finally Afrin nasal spray in the right nostril 2 puffs 3 times daily. He was treated with this regimen for approximately 2 weeks and when he was seen back, he stated that he was still having a small bleeding episodes. It was recommended the patient be taken to surgery and at that time under general anesthesia the area be cauterized and possibly coated with Hemadrima hemostatic agent. PAST MEDICAL HISTORY: Past medical history reveals that he has ALLERGIES: TO COUMADIN AND CIPRO. CURRENT MEDICATIONS: Include Zoloft, [place], Prilosec, allopurinol, singular, Zantac, trazodone, and Atorvastatin, lisinopril, Coreg CR 80 mg, Lasix, Breo inhaler. REVIEW OF SYSTEMS: Reveals cardiovascular system is positive for hypertension. Gastrointestinal system is positive for GERD. Metabolic, endocrine system is positive for hypercholesterolemia. MUSCULOSKELETAL SYSTEM: Positive for osteoarthritis and gout. SURGERIES: Include right and left hip replacement and right and left knee replacement, tonsillectomy, adenoidectomy, several skin cancers, and total prostate resection for cancer. PHYSICAL EXAMINATION: This patient is an 81-year-old male who was alert and cooperative. HEENT examination: Patient is normocephalic. Tympanic membranes are normal. Middle ear space is free of any fluid or infection. Pupils equal, round, reactive to light and accommodation. Extraocular movements are within normal limits. Intranasal examination shows a septal deviation to the left with compensatory hypertrophy of the inferior turbinates. Examination right septum reveals several blood vessels which have been the source of recent bleeding, but these are not actively bleeding now. Examination of oropharynx, cranial nerves 2-12 and the remainder of the head and neck exam is unremarkable. CHEST/CARDIOVASCULAR: Both lung reed are clear to percussion and auscultation. The patient in regular sinus rhythm. S1, S2 are present without any murmurs S3s or S4. Peripheral pulses are bilaterally symmetrical, within normal limits. ABDOMEN: There is no any masses, megaly, or tenderness. ABDOMEN: Soft. Skin is unremarkable. Musculoskeletal and neurological. The skin within normal limits. Rectal examination: The rectal exam is deferred at this time because the patient has this done on a regular basis at his family physician's office. The remainder of physical exam is unremarkable. IMPRESSION: Recurrent right epistaxis. PLAN: The patient is scheduled to undergo cauterization of the right septum for control of recurrent right epistaxis under general anesthesia. Attention RNs in the pre-surgical area: The only pre-surgical medications that I have ordered for this patient are Ofirmev 1000 mg IV and Kefzol 2 g IV, both to be given once an intravenous line has been established. I have not ordered any other pre- surgical prophylactic antibiotics. If the pharmacy department sends any other medication other than the 2 aforementioned medications, they should be returned to the pharmacy department and make sure that the patient's account is credited appropriately. Again the only medications I have ordered are Ofirmev and Kefzol. I have discussed the risks, benefits and alternative therapies for the above-mentioned procedure and for both sedation/analgesia as well as necessary blood product administration, if indicated, as they pertain to this patient. The patient has indicated his or her understanding and acceptance of the risks and procedures discussed. MMODL / IJN: [id number] /
[~2017-05-06 08:37] MED LIST changes: -ALPRAZolam 0.25 MG TAB PO PRN; -ALPRAZolam 0.5 MG TAB PO PRN; -ASPIRIN 325 MG TAB PO STA; -ATORVASTATIN 80 MG TAB PO STA; -BENZOCAINE SPRAY 100 APPLIC/CAN TOPICAL PRN; +DEXAMETHASONE SOD PHOSPHATE 10 MG/ML 1 ML VIAL IV ONE; +HYDROmorphone 0.5 MG/0.5 ML SYRINGE IVP PRN; +LACTATED RINGERS 1,000 ML IV SCH; +LIDOCAINE 1% 20 ML VIAL (10MG/ML) FOR IV START INTRADERMA PRN; -NITROGLYCERIN SL TABS 0.4 MG TAB SUBLINGUAL PRN; +ONDANSETRON 4 MG/2 ML VIAL IVP ONE; -SODIUM CHLORIDE 0.9% 1,000 ML in EMPTY BAG 1 BAG IV ONE
[2017-05-06] MEDS ORDERED: LIDOCAINE 1% 20 ML VIAL (10MG/ML) FOR IV START INTRADERMA ONE (09:35)
[2017-05-06] MEDS ORDERED: ACETAMINOPHEN IV (For NPO) 1,000 MG in EMPTY BAG 1 BAG IVPB ONE (09:45)
[2017-05-06] MEDS ORDERED: ceFAZolin IN SWFI 2 GM/20 ML SYRINGE IVP ONE (09:45)
[2017-05-06] MEDS ORDERED: ROCURONIUM BROMIDE 10 MG/ML 10 ML VIAL IV ONE (10:32)
[2017-05-06] MEDS ORDERED: MIDAZOLAM 2 MG/2 ML VIAL ONE (10:32)
[2017-05-06] MEDS ORDERED: GLYCOPYRROLATE 0.2 MG/ML 2 ML VIAL ONE (10:32)
[2017-05-06] MEDS ORDERED: PROPOFOL 10 MG/ML 20 ML VIAL IV ONE (10:32)
[2017-05-06] MEDS ORDERED: NEOSTIGMINE 1 MG/ML 10 ML VIAL ONE (10:32)
[2017-05-06] MEDS ORDERED: fentaNYL (PF) 50 MCG/ML 2 ML AMP ONE (10:32)
[2017-05-06] MEDS ORDERED: SUCCINYLCHOLINE CHLORIDE 100 MG/5 ML SYR IV ONE (10:32)
[2017-05-06] MEDS ORDERED: OXYMETAZOLINE 0.05% NASL SPRAY 1 SPRAY BOTTLE NASAL ONE (10:58)
[2017-05-06 11:36] VITALS: TEMP 97.8
[2017-05-06 12:02] VITALS: RESP 18
[2017-05-06 12:38] VITALS: BP 124/73; PULSE 93
--- NOTE | 2017-05-06 23:22 | OP ---
OPERATIVE REPORT DATE OF SURGERY: 05/06/2017 PREOPERATIVE DIAGNOSIS: Severe recurrent right epistaxis. POSTOPERATIVE DIAGNOSIS: Severe recurrent right epistaxis. ANESTHESIA: General. OPERATIVE PROCEDURE: Control of recurrent right epistaxis via electrocautery and application of Hemaderm hemostatic powder. SURGEON: Dr. Clifton. COMPLICATIONS: None. ESTIMATED BLOOD LOSS: Less than 10 mL. PROCEDURE DESCRIPTION: The patient was placed on the operating table in supine position. After uneventful induction of endotracheal intubation, satisfactory general anesthesia was obtained. Next the patient's right nostril was packed with a cottonoid saturated with Afrin nasal spray to achieve maximum vasoconstriction of the right inferior turbinate. The cottonoid was left in place for a period of approximately 8 minutes, and upon removing, the bleeding site was visualized on the mid to anterior portion of the right cartilaginous septum. Thereupon inspection was noted not only to involve a ruptured blood vessel, but there was a significant amount of granulation tissue which had surrounded this area which was not healing. Therefore, using the suction cautery on a moderate setting, in a circumferential fashion the bleeding site was appropriately cauterized and the granulation tissue was removed also by cauterization. The cauterization was done in such a fashion as to remove all of the diseased mucous membrane. There was a small amount of bleeding in the process of cauterizing, and approximately 10 mL of blood loss was experienced. Next, the area was dusted with the Hemaderm hemostatic powder in the usual fashion. Several minutes were allowed to elapse for the powder to take effect. Inspection revealed no further bleeding. The excess powder was suctioned from the nasopharynx. No nasal packing was inserted. There was no active bleeding and therefore the procedure was terminated. There were no intraoperative complications. Patient tolerated the procedure well and was returned to the recovery room in satisfactory condition. MMODL / IJN: [id number] /
== END 2017-05-06 13:09 | disposition home or self-care (01) ==
LOC: OR 08:37
PROVIDERS: ATTEND Otolaryngology
DX: R04.0 Epistaxis (principal); K21.9 Gastro-esophageal reflux disease without esophagitis; E78.00 Pure hypercholesterolemia, unspecified; M19.90 Unspecified osteoarthritis, unspecified site; M10.9 Gout, unspecified; J34.2 Deviated nasal septum; I11.0 Hypertensive heart disease with heart failure; I50.9 Heart failure, unspecified; I49.9 Cardiac arrhythmia, unspecified; J44.9 Chronic obstructive pulmonary disease, unspecified; N42.9 Disorder of prostate, unspecified; Z96.643 Presence of artificial hip joint, bilateral; Z96.652 Presence of left artificial knee joint; Z90.79 Acquired absence of other genital organ(s); Z85.46 Personal history of malignant neoplasm of prostate; Z85.828 Personal history of other malignant neoplasm of skin; Z79.891 Long term (current) use of opiate analgesic; Z79.51 Long term (current) use of inhaled steroids; Z79.899 Other long term (current) drug therapy; Z88.1 Allergy status to other antibiotic agents; Z88.8 Allergy status to other drugs, medicaments and biological substances
CPT/HCPCS: 30901; J2250; J1100; J2710; J2405; J3010; J0131; J0330; J2704

== ENCOUNTER → 2017-06-13 | Outpatient (CLI) | payer MEDICARE, BC ==
--- NOTE | 2017-06-13 07:30 | US ---
EXAMINATION TYPE: US kidneys/renal and bladder DATE OF EXAM: 06/13/2017 COMPARISON: ct 2016 CLINICAL HISTORY: R94.4 Abnormal results of kidney function studies. EXAM MEASUREMENTS: Right Kidney: 8.4 x 4.2 x 4.2 cm Left Kidney: 8.4 x 4.1 x 5.1 cm Right Kidney: No hydronephrosis small cortical cyst 0.5 x 0.5 x 0.6 cm Left Kidney: mixed mass upper mid pole 3.4 x 2.7 x 2.4 cm Bladder: not seen well, pt bladder not full, hx prostate cancer 2017 Bilateral Jets seen: No Normal Post Void Residual: never filled bladder There is no evidence for hydronephrosis at this point in time. No nephrolithiasis is seen. The ur inary bladder is anechoic. IMPRESSION: 1. Complex mass upper pole left kidney may reflect a cyst however further evaluation with contrast-en hanced CT is advised. 2. Small right-sided renal cortical cysts.
== END | disposition home or self-care (01) ==
LOC: RADUSWWP 06:56
PROVIDERS: ATTEND Family Medicine
DX: N28.1 Cyst of kidney, acquired (principal); N28.89 Other specified disorders of kidney and ureter; Z85.46 Personal history of malignant neoplasm of prostate
CPT/HCPCS: 76770

== ENCOUNTER → 2017-06-21 | Outpatient (CLI) | payer MEDICARE, BC ==
--- NOTE | 2017-06-21 15:19 | CT ---
EXAMINATION TYPE: CT abdomen wo con DATE OF EXAM: 06/21/2017 COMPARISON: Ultrasound 06/13/2017, CT 09/12/2015, MRI lumbar spine 08/14/2010 HISTORY: Patient has no complaints at time of service. Abnormal US at [facility]. History of chronic renal disease. CT DLP: 436.5 mGycm Automated exposure control for dose reduction was used. TECHNIQUE: Helical acquisition of images was performed from the lung bases through the top of iliac crest to include entire abdomen. CONTRAST: Performed with Oral Contrast and without IV contrast. FINDINGS: LUNG BASES: Emphysematous changes involving the lung bases.. LIVER/GB: No significant abnormality is appreciated. PANCREAS: No significant abnormality is seen. SPLEEN: No significant abnormality is seen. ADRENALS: No significant abnormality is seen. KIDNEYS: There is a hypodense lesion involving the left kidney measuring 3.4 cm. Measures 6 Hounsfiel d units compatible with simple cyst. Findings stable from previous exam. No hydronephrosis.. BOWEL: Diverticulosis of the colon bowel gas pattern nonspecific. LYMPH NODES: No significant abnormality is appreciated. OSSEOUS STRUCTURES: Hypertrophic and degenerative change of the spine noted. Scoliosis with multilev el facet arthropathy noted. Canal stenosis involving the lower lumbar spine suspected. OTHER: Atherosclerotic change of the aorta. No evidence of aneurysm. Eccentric plaque or localized ch ronic dissection involving the distal abdominal aorta. Findings stable from previous exam. IMPRESSION: 1. Left renal lesion measures 6 Hounsfield units compatible with simple cyst and retrospectively anuj lar in appearance dating back to the MRI of 08/04/2010 lumbar spine where it was compatible with a simp le cyst.
== END | disposition home or self-care (01) ==
LOC: RADCTMAIN 14:07
PROVIDERS: ATTEND Family Medicine
DX: N28.9 Disorder of kidney and ureter, unspecified (principal)
CPT/HCPCS: 74150

== ENCOUNTER 2017-09-12 11:22 | Inpatient (IN) | payer MEDICARE, BC ==
[2017-09-12] MEDS ORDERED: SODIUM CHLORIDE 0.9% 1,000 ML IV STA (11:26)
--- NOTE | 2017-09-12 11:29 | ED ---
Syncope HPI - General Stated Complaint: syncope Time Seen by Provider: 09/12/17 11:22 Source: patient, EMS, RN notes reviewed Mode of arrival: EMS - History of Present Illness Initial Comments: This is an 82-year-old male who is brought in for evaluation after having a syncopal episode today he apparently was sitting in a chair and passed out for about a minute he does apparently been having cloudy urine for past couple days. He is found have a blood pressure 85/50 was given a liter fluid did improve to 95/50 glucose was 200 does have a history of diet-controlled diabetes irregular heartbeat COPD no recent fevers chills nausea vomiting or sweats he states he's been eating enough. No focal loss of function no blurry vision. MD Complaint: loss of consciousness - Related Data Home Medications Medication Instructions Recorded Confirmed Carvedilol [Coreg*] 12.5 mg PO BID 08/25/15 09/12/17 Cholecalciferol [Vitamin D3] 2,000 unit PO DAILY@1200 08/25/15 09/12/17 Fish Oil/Dha/Epa [Fish Oil 1,200 1 cap PO DAILY@1200 08/25/15 09/12/17 mg Fish Oil] HYDROcodone/APAP 10-325MG [[place] 1 tab PO Q6H PRN 08/25/15 09/12/17 10-325] Lisinopril-Hctz 20-25 mg 0.5 tab PO QAM 08/25/15 09/12/17 [Zestoretic 20-25] Magnesium 200 mg PO DAILY@1200 08/25/15 09/12/17 Montelukast [Singulair] 10 mg PO DAILY 08/25/15 09/12/17 Omeprazole 20 mg PO QAM 08/25/15 09/12/17 Ranitidine HCl [Zantac] 300 mg PO DAILY 08/25/15 09/12/17 traZODone HCL [Desyrel] 50 mg PO HS 08/25/15 09/12/17 Sertraline [Zoloft] 100 mg PO BID 07/19/16 09/12/17 Fluticasone/Vilanterol [Breo 1 puff INHALATION DAILY@1800 05/03/17 09/12/17 Ellipta 200-25 Mcg INH] Umeclidinium [place] [Incruse 1 puff INHALATION DAILY@1800 05/03/17 09/12/17 Ellipta] Allopurinol [Zyloprim] 300 mg PO DAILY 09/12/17 09/12/17 Atorvastatin [Lipitor] 20 mg PO DAILY 09/12/17 09/12/17 Calcium Carbonate [Calcium] 600 mg PO DAILY 09/12/17 09/12/17 DULoxetine HCL [Cymbalta] 20 mg PO HS 09/12/17 09/12/17 Furosemide [Lasix] 20 mg PO DAILY 09/12/17 09/12/17 Garlic 1 tab PO DAILY 09/12/17 09/12/17 Allergies Allergy/AdvReac Type Severity Reaction Status Date / Time ciprofloxacin [From Cipro] Allergy Angioedema Verified 09/12/17 11:42 ciprofloxacin HCl Allergy Angioedema Verified 09/12/17 11:42 [From Cipro] ragweed pollen Allergy congestion Verified 09/12/17 11:42 warfarin sodium AdvReac Nausea & Verified 09/12/17 11:42 [From Coumadin] Vomiting Review of Systems ROS Statement: Those systems with pertinent positive or pertinent negative responses have been documented in the HPI. ROS Other: All systems not noted in ROS Statement are negative. 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 SOB w/exertion, aortic stenosis, using oxygen @2l continuously, diabetic neuropathy,BORDERLINE DIABETIC- History of Any Multi-Drug Resistant Organisms: None Reported Past Surgical History: Heart Catheterization, Joint Replacement, Orthopedic Surgery, Prostate Surgery, Tonsillectomy Additional Past Surgical History / Comment(s): bilateral hip replacement & bilateral knees replacement; Left arm tricep arm repaired; heart cath x2 colonoscopy, prostatectomy d/t cancer. steroid inj to back Past Anesthesia/Blood Transfusion Reactions: Previous Problems w/ Anesthesia Additional Past Anesthesia/Blood Transfusion Reaction / Comment(s): states had uncontrolled shaking after hip surgery-no problems since Smoking Status: Former smoker - Past Family History Mother Family Medical History: No Reported History Additional Family Medical History / Comment(s): " at 94 from old age" Father Family Medical History: No Reported History Additional Family Medical History / Comment(s): " from medication interaction" Sister(s) Family Medical History: Cancer Additional Family Medical History / Comment(s): breast cancer Son(s) Family Medical History: Cancer Additional Family Medical History / Comment(s): bladder cancer General Exam - General Exam Comments Initial Comments: This is a well-developed well-nourished awake alert oriented 3 male General appearance: alert, in no apparent distress Head exam: Present: atraumatic, normocephalic, normal inspection Eye exam: Present: normal appearance, PERRL, EOMI. Absent: scleral icterus, conjunctival injection, periorbital swelling ENT exam: Present: mucous membranes dry Neck exam: Present: normal inspection. Absent: tenderness, meningismus, lymphadenopathy Respiratory exam: Present: normal lung sounds bilaterally. Absent: respiratory distress, wheezes, rales, rhonchi, stridor Cardiovascular Exam: Present: regular rate, normal rhythm, normal heart sounds. Absent: systolic murmur, diastolic murmur, rubs, gallop, clicks GI/Abdominal exam: Present: soft, normal bowel sounds. Absent: distended, tenderness, guarding, rebound, rigid Extremities exam: Present: normal inspection, full ROM, normal capillary refill. Absent: tenderness, pedal edema, joint swelling, calf tenderness Back exam: Present: normal inspection Neurological exam: Present: alert, oriented X3, CN II-XII intact Psychiatric exam: Present: normal affect, normal mood Skin exam: Present: warm, dry, intact, normal color. Absent: rash Course Vital Signs 09/12/17 09/12/17 11:23 12:37 Temperature 98.3 F Pulse Rate 65 69 Respiratory 16 16 Rate Blood Pressure 95/50 88/51 O2 Sat by Pulse 98 97 Oximetry EKG Findings - EKG Results: EKG: interpreted by ERMJen, sinus rhythm (EKG shows sinus rhythm a 69. Interval 154 QRS 90 QT since QTC of 460/445 low-voltage criteria for LVH no acute ST-T wave changes) Medical Decision Making - Medical Decision Making I did a long session with patient family regarding findings patient will be admitted I did discuss case Dr. Pires. - Lab Data Result diagrams: 09/12/17 11:43 09/12/17 11:43 Lab Results 09/12/17 09/12/17 09/12/17 Range/Units 11:43 11:43 11:43 WBC 13.7 H (3.8-10.6) k/uL RBC 4.13 L (4.30-5.90) m/uL Hgb 13.3 (13.0-17.5) gm/dL Hct 40.3 (39.0-53.0) % MCV 97.7 (80.0-100.0) fL MCH 32.3 (25.0-35.0) pg MCHC 33.0 (31.0-37.0) g/dL RDW 14.2 (11.5-15.5) % Plt Count 150 (150-450) k/uL Neutrophils % 88 % Lymphocytes % 7 % Monocytes % 3 % Eosinophils % 1 % Basophils % 0 % Neutrophils # 12.1 H (1.3-7.7) k/uL Lymphocytes # 0.9 L (1.0-4.8) k/uL Monocytes # 0.4 (0-1.0) k/uL Eosinophils # 0.2 (0-0.7) k/uL Basophils # 0.0 (0-0.2) k/uL PT (9.0-12.0) sec INR (<1.2) APTT (22.0-30.0) sec Sodium 136 L (137-145) mmol/L Potassium 3.9 (3.5-5.1) mmol/L Chloride 101 (98-107) mmol/L Carbon Dioxide 25 (22-30) mmol/L Anion Gap 10 mmol/L BUN 55 H (9-20) mg/dL Creatinine 2.00 H (0.66-1.25) mg/dL Est GFR (CKD-EPI)AfAm 35 (>60 ml/min/1.73 sqM) Est GFR (CKD-EPI)NonAf 30 (>60 ml/min/1.73 sqM) Glucose 172 H (74-99) mg/dL Calcium 8.9 (8.4-10.2) mg/dL Magnesium 2.1 (1.6-2.3) mg/dL Total Bilirubin 0.8 (0.2-1.3) mg/dL AST 24 (17-59) U/L ALT 48 (21-72) U/L Alkaline Phosphatase 61 (38-126) U/L Total Creatine Kinase 57 (55-170) U/L CK-MB (CK-2) 1.2 (0.0-2.4) ng/mL CK-MB (CK-2) Rel Index 2.1 Troponin I <0.012 (0.000-0.034) ng/mL Total Protein 5.4 L (6.3-8.2) g/dL Albumin 3.0 L (3.5-5.0) g/dL Urine Color Urine Appearance (Clear) Urine pH (5.0-8.0) Ur Specific [place] (1.001-1.035) Urine Protein (Negative) Urine Glucose (UA) (Negative) Urine Ketones (Negative) Urine Blood (Negative) Urine Nitrite (Negative) Urine Bilirubin (Negative) Urine Urobilinogen (<2.0) mg/dL Ur Leukocyte Esterase (Negative) 09/12/17 09/12/17 Range/Units 11:43 12:30 WBC (3.8-10.6) k/uL RBC (4.30-5.90) m/uL Hgb (13.0-17.5) gm/dL Hct (39.0-53.0) % MCV (80.0-100.0) fL MCH (25.0-35.0) pg MCHC (31.0-37.0) g/dL RDW (11.5-15.5) % Plt Count (150-450) k/uL Neutrophils % % Lymphocytes % % Monocytes % % Eosinophils % % Basophils % % Neutrophils # (1.3-7.7) k/uL Lymphocytes # (1.0-4.8) k/uL Monocytes # (0-1.0) k/uL Eosinophils # (0-0.7) k/uL Basophils # (0-0.2) k/uL PT 10.1 (9.0-12.0) sec INR 1.0 (<1.2) APTT 20.1 L (22.0-30.0) sec Sodium (137-145) mmol/L Potassium (3.5-5.1) mmol/L Chloride (98-107) mmol/L Carbon Dioxide (22-30) mmol/L Anion Gap mmol/L BUN (9-20) mg/dL Creatinine (0.66-1.25) mg/dL Est GFR (CKD-EPI)AfAm (>60 ml/min/1.73 sqM) Est GFR (CKD-EPI)NonAf (>60 ml/min/1.73 sqM) Glucose (74-99) mg/dL Calcium (8.4-10.2) mg/dL Magnesium (1.6-2.3) mg/dL Total Bilirubin (0.2-1.3) mg/dL AST (17-59) U/L ALT (21-72) U/L Alkaline Phosphatase (38-126) U/L Total Creatine Kinase (55-170) U/L CK-MB (CK-2) (0.0-2.4) ng/mL CK-MB (CK-2) Rel Index Troponin I (0.000-0.034) ng/mL Total Protein (6.3-8.2) g/dL Albumin (3.5-5.0) g/dL Urine Color Yellow Urine Appearance Clear (Clear) Urine pH 6.0 (5.0-8.0) Ur Specific [place] 1.014 (1.001-1.035) Urine Protein Negative (Negative) Urine Glucose (UA) Negative (Negative) Urine Ketones Negative (Negative) Urine Blood Negative (Negative) Urine Nitrite Negative (Negative) Urine Bilirubin Negative (Negative) Urine Urobilinogen <2.0 (<2.0) mg/dL Ur Leukocyte Esterase Negative (Negative) - Radiology Data Radiology results: report reviewed (I did review the imaging and report no definite acute findings.), image reviewed Critical Care Time Critical Care Time: Yes Critical Care Time: 31 minutes of critical care time which includes initial monitoring the EMS run and discussed with paramedics history physical labs x-rays several reevaluation is of the patient discussed with the patient family regarding findings discussion with the admitting physician and documentation of the above review of old charting was available. Disposition Clinical Impression: Syncope and collapse, Renal insufficiency syndrome, Dehydration Disposition: ADMITTED IP TO THIS [facility] Condition: Stable Referrals: Lise John DO [Primary Care Provider] - 1-2 days
[2017-09-12 12:04] LABS: Basophils % (A) 0 %; Eosinophils # (A) 0.2 k/uL (0-0.7); Eosinophils % (A) 1 %; HCT 40.3 % (39.0-53.0); HGB 13.3 gm/dL (13.0-17.5); Lymphocytes # (A) 0.9 k/uL (1.0-4.8); Lymphocytes % (A) 7 %; MCH 32.3 pg (25.0-35.0); MCV 97.7 fL (80.0-100.0); Mean Platelet Volume 9.1; Monocytes # (A) 0.4 k/uL (0-1.0); Monocytes % (A) 3 %; Neutrophils # (A) 12.1 k/uL (1.3-7.7); Neutrophils % (A) 88 %; Platelet Count 150 k/uL (150-450); RBC 4.13 m/uL (4.30-5.90); RDW 14.2 % (11.5-15.5); WBC 13.7 k/uL (3.8-10.6)
[2017-09-12 12:09] LABS: Calcium 8.9 mg/dL (8.4-10.2); Magnesium 2.1 mg/dL (1.6-2.3); Potassium 3.9 mmol/L (3.5-5.1); Total Bilirubin 0.8 mg/dL (0.2-1.3); Total Protein 5.4 g/dL (6.3-8.2)
[2017-09-12 12:22] LABS: Creatine Kinase 57 U/L (55-170)
--- NOTE | 2017-09-12 12:28 | CT ---
EXAMINATION TYPE: CT brain wo con DATE OF EXAM: 09/12/2017 COMPARISON: NONE HISTORY: Syncopal episode today. CT DLP: 862.5 mGycm Automated exposure control for dose reduction was used. FINDINGS: Chronic appearing to forming at the skull base on the left encroaches upon the lateral margin of the spinal cord at the level the left occipital condyle. Next Small hypodensities within the basal ganglia may represent prominent Virchow-Apolinar spaces or tiny rem ote lacunar infarctions. Vascular calcifications are noted. Generalized degenerative changes seen with areas of low-attenuatio n the white matter likely in the basis of remote microvascular ischemia. No midline shift or acute he morrhage. IMPRESSION: NONSPECIFIC WHITE MATTER CHANGES MOST TYPICAL REMOTE MICROVASCULAR ISCHEMIA. NO ACUTE HEMORRHAGE OR M ASS EFFECT. IF THERE IS CONCERN FOR ACUTE ISCHEMIA CORRELATE WITH MRI CLINICALLY WARRANTED. CHRONIC DEFORMITY AT THE LEVEL THE OCCIPITAL CONDYLE AND THE LEFT DOES ENCROACH UPON THE LATERAL JERONIMO IN OF THE LEFT CERVICAL SPINAL CORD..
[2017-09-12 12:29] LABS: Prothrombin Time 10.1 sec (9.0-12.0)
--- NOTE | 2017-09-12 12:30 | XR ---
EXAMINATION TYPE: XR chest 2V DATE OF EXAM: 09/12/2017 COMPARISON: 07/19/2016 HISTORY: Syncope TECHNIQUE: Frontal and lateral views of the chest are obtained. FINDINGS: There is no focal air space opacity, pleural effusion, or pneumothorax seen. Left midlung platelike atelectasis is noted. The cardiac silhouette size is within normal limits. The osseous s tructures are intact. There is generalized osseous demineralization. Mild right acromioclavicular art hropathy is incidentally seen. IMPRESSION: Left midlung platelike atelectasis. No additional acute cardiopulmonary process.
[2017-09-12 12:34] LABS: Creatine Kinase MB 1.2 ng/mL (0.0-2.4); Troponin I <0.012 ng/mL (0.000-0.034)
[2017-09-12 12:36] LABS: Partial Thromboplastin Time 20.1 sec (22.0-30.0)
[2017-09-12] MEDS ORDERED: SODIUM CHLORIDE 0.9% 1,000 ML IV ONE (12:39)
[2017-09-12 12:55] LABS: Appearance,Urine Clear (Clear); Bilirubin,Urine Negative (Negative); Blood,Urine Negative (Negative); Color,Urine Yellow; Glucose,Urine (UA) Negative (Negative); Ketones,Urine Negative (Negative); Leukocyte Esterase,Urine Negative (Negative); Nitrite,Urine Negative (Negative); Protein,Urine Negative (Negative); Specific Gravity,Urine 1.014 (1.001-1.035); Urobilinogen,Urine <2.0 mg/dL (<2.0)
[2017-09-12] MEDS ORDERED: NALOXONE 0.4 MG/ML 1 ML VIAL IV PRN (15:06)
[2017-09-12] MEDS ORDERED: HYDROcodone/APAP 10-325MG 1 EACH TAB PO PRN (15:12)
[2017-09-12] MEDS: IPRATROPIUM 0.5 MG/2.5 ML NEBU INHALATION SCH ×2 (16:10→19:59)
[2017-09-12] MEDS: SODIUM CHLORIDE 0.9% 1,000 ML IV SCH (17:09)
[2017-09-12] MEDS: CARVEDILOL 12.5 MG TAB PO SCH (18:09)
[2017-09-12] MEDS: SYMBICORT 160-4.5 MCG INHALER INHALATION SCH (19:59)
[2017-09-12] MEDS: SERTRALINE 100 MG TAB PO SCH (20:42)
[2017-09-12] MEDS: DULoxetine HCL 20 MG CAPSULE.DR PO SCH (20:42)
[2017-09-12] MEDS: traZODone HCL 50 MG TAB PO SCH (20:42)
[2017-09-12 21:20] LABS: Glucose,Whole Blood 131 mg/dL (75-99)
[2017-09-13 06:06] LABS: Glucose,Whole Blood 101 mg/dL (75-99)
[2017-09-13] MEDS: CARVEDILOL 12.5 MG TAB PO SCH ×2 (06:30→17:53)
[2017-09-13] MEDS: PANTOPRAZOLE 40 MG TABLET PO SCH (06:30)
[2017-09-13] MEDS: SODIUM CHLORIDE 0.9% 1,000 ML IV SCH ×2 (06:32→17:53)
[2017-09-13] MEDS: IPRATROPIUM 0.5 MG/2.5 ML NEBU INHALATION SCH ×4 (08:23→20:39)
[2017-09-13] MEDS: SYMBICORT 160-4.5 MCG INHALER INHALATION SCH ×2 (08:25→20:39)
[2017-09-13] MEDS: FAMOTIDINE 20 MG TAB PO SCH (08:28)
[2017-09-13] MEDS: ATORVASTATIN 20 MG TAB PO SCH (08:28)
[2017-09-13] MEDS: ALLOPURINOL 300 MG TAB PO SCH (08:28)
[2017-09-13] MEDS: MONTELUKAST 10 MG TAB PO SCH (08:29)
[2017-09-13] MEDS ORDERED: NON-FORMULARY DRUG (Garlic [Garlic] 1 TAB) PO SCH (09:00)
[2017-09-13] MEDS ORDERED: FUROSEMIDE 20 MG TAB PO SCH (09:00)
[2017-09-13 09:17] LABS: Basophils % (A) 0 %; Eosinophils # (A) 0.2 k/uL (0-0.7); Eosinophils % (A) 2 %; HCT 38.1 % (39.0-53.0); HGB 12.2 gm/dL (13.0-17.5); Lymphocytes # (A) 0.9 k/uL (1.0-4.8); Lymphocytes % (A) 12 %; MCH 32.1 pg (25.0-35.0); MCV 100.3 fL (80.0-100.0); Macrocytosis Slight; Mean Platelet Volume 10.6; Monocytes # (A) 0.4 k/uL (0-1.0); Monocytes % (A) 5 %; Neutrophils # (A) 5.6 k/uL (1.3-7.7); Neutrophils % (A) 79 %; Platelet Count 125 k/uL (150-450); RBC 3.81 m/uL (4.30-5.90); WBC 7.1 k/uL (3.8-10.6)
[2017-09-13 09:28] LABS: Albumin 2.9 g/dL (3.5-5.0); Calcium 8.8 mg/dL (8.4-10.2); Potassium 4.6 mmol/L (3.5-5.1); Total Bilirubin 0.6 mg/dL (0.2-1.3); Total Protein 5.2 g/dL (6.3-8.2)
--- NOTE | 2017-09-13 10:01 | P.CRDCN ---
History of Present Illness Consult date: 09/13/17 History of present illness: This is a 82-year-old gentleman with history of mild to moderate aortic stenosis , hypertension and COPD for is admitted now to the hospital with complaints of episodes of dizziness and syncopal episode. On the last 3 months patient has been dieting and lost about 25 pounds. Apparently, he was eating same amount of food that he used to eat for breakfast, whole day. Has been having intermittent episodes of dizziness. On the day of admission patient actually had a syncopal episode. Denies any chest pain, shortness of breath or palpitations. Patient has been in sinus rhythm since admission here. His cardiac enzymes are negative. His creatinine was high in the range of 2 on admission which seemed to be gradually improving. It appears that most probably patient had a syncopal episode related to postural hypotension. Most probably this is secondary to weight loss, dehydration, and also related to continued use of lisinopril. I will hold his lisinopril and continue to hydrate. I'll check his blood pressure for postural changes. 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 SOB w/exertion, aortic stenosis, using oxygen @2l continuously, diabetic neuropathy,BORDERLINE DIABETIC- History of Any Multi-Drug Resistant Organisms: None Reported Past Surgical History: Heart Catheterization, Joint Replacement, Orthopedic Surgery, Prostate Surgery, Tonsillectomy Additional Past Surgical History / Comment(s): bilateral hip replacement & bilateral knees replacement; Left arm tricep arm repaired; heart cath x2 colonoscopy, prostatectomy d/t cancer. steroid inj to back, skin ca removed ,05-06 cauterization d/t rt epistaxis Past Anesthesia/Blood Transfusion Reactions: Previous Problems w/ Anesthesia Additional Past Anesthesia/Blood Transfusion Reaction / Comment(s): states had uncontrolled shaking after hip surgery-no problems since Smoking Status: Former smoker - Past Family History Mother Family Medical History: No Reported History Additional Family Medical History / Comment(s): " at 94 from old age" Father Family Medical History: No Reported History Additional Family Medical History / Comment(s): " from medication interaction" Sister(s) Family Medical History: Cancer Additional Family Medical History / Comment(s): breast cancer Son(s) Family Medical History: Cancer Additional Family Medical History / Comment(s): bladder cancer Medications and Allergies Home Medications Medication Instructions Recorded Confirmed Type Carvedilol [Coreg*] 12.5 mg PO BID 08/25/15 09/12/17 History Cholecalciferol [Vitamin D3] 2,000 unit PO DAILY@1200 08/25/15 09/12/17 History Fish Oil/Dha/Epa [Fish Oil 1,200 1 cap PO DAILY@1200 08/25/15 09/12/17 History mg Fish Oil] HYDROcodone/APAP 10-325MG [[place] 1 tab PO Q6H PRN 08/25/15 09/12/17 History 10-325] Lisinopril-Hctz 20-25 mg 0.5 tab PO QAM 08/25/15 09/12/17 History [Zestoretic 20-25] Magnesium 200 mg PO DAILY@1200 08/25/15 09/12/17 History Montelukast [Singulair] 10 mg PO DAILY 08/25/15 09/12/17 History Omeprazole 20 mg PO QAM 08/25/15 09/12/17 History Ranitidine HCl [Zantac] 300 mg PO DAILY 08/25/15 09/12/17 History traZODone HCL [Desyrel] 50 mg PO HS 08/25/15 09/12/17 History Sertraline [Zoloft] 100 mg PO BID 07/19/16 09/12/17 History Fluticasone/Vilanterol [Breo 1 puff INHALATION DAILY@1800 05/03/17 09/12/17 History Ellipta 200-25 Mcg INH] Umeclidinium [place] [Incruse 1 puff INHALATION DAILY@1800 05/03/17 09/12/17 History Ellipta] Allopurinol [Zyloprim] 300 mg PO DAILY 09/12/17 09/12/17 History Atorvastatin [Lipitor] 20 mg PO DAILY 09/12/17 09/12/17 History Calcium Carbonate [Calcium] 600 mg PO DAILY 09/12/17 09/12/17 History DULoxetine HCL [Cymbalta] 20 mg PO HS 09/12/17 09/12/17 History Furosemide [Lasix] 20 mg PO DAILY 09/12/17 09/12/17 History Garlic 1 tab PO DAILY 09/12/17 09/12/17 History Allergies Allergy/AdvReac Type Severity Reaction Status Date / Time ciprofloxacin [From Cipro] Allergy Angioedema Verified 09/12/17 11:42 ciprofloxacin HCl Allergy Angioedema Verified 09/12/17 11:42 [From Cipro] ragweed pollen Allergy congestion Verified 09/12/17 11:42 warfarin sodium AdvReac Nausea & Verified 09/12/17 11:42 [From Coumadin] Vomiting Physical Exam Vitals: Vital Signs Temp Pulse Pulse Resp BP BP BP 09/13/17 08:38 80 09/13/17 08:25 76 09/13/17 08:00 97.1 F L 77 18 96/55 97/50 09/13/17 05:30 77 18 09/13/17 03:50 81 18 09/13/17 03:30 98.2 F 17 102/64 09/13/17 00:15 98.2 F 73 18 124/62 09/12/17 20:18 81 09/12/17 20:05 98.4 F 81 18 106/63 09/12/17 20:02 81 09/12/17 16:21 72 09/12/17 16:14 68 09/12/17 16:00 97.0 F L 67 16 90/53 09/12/17 15:00 97.8 F 68 16 101/58 09/12/17 12:37 69 16 88/51 09/12/17 11:23 98.3 F 65 16 95/50 BP BP Pulse Ox 09/13/17 08:38 09/13/17 08:25 95 09/13/17 08:00 97 09/13/17 05:30 124/59 97 09/13/17 03:50 09/13/17 03:30 111/64 97 09/13/17 00:15 97 09/12/17 20:18 09/12/17 20:05 95 09/12/17 20:02 96 09/12/17 16:21 09/12/17 16:14 09/12/17 16:00 97 09/12/17 15:00 98 09/12/17 12:37 97 09/12/17 11:23 98 Intake and Output 09/12/17 09/13/17 09/13/17 22:59 06:59 14:59 Intake Total 642 025 7570 Output Total 80 0 0 Balance 902 723 2684 Intake: Intake, IV Titration 960 Amount Sodium Chloride 0.9% 1, 960 000 ml @ 80 mls/hr IV . [id number] [facility] Rx#:[id number] Oral 240 240 240 Output: Urine 80 Stool 0 0 0 Urine/Stool Mix 0 Other: Voiding Method Toilet Toilet Toilet # Voids 0 5 # Bowel Movements 0 Weight 82.1 kg GENERAL EXAM: Patient is alert and oriented and doesn't appear to be in any acute distress HEENT: Normocephalic. Normal reaction of pupils, equal size, normal range of extraocular motion. No erythema or exudates in the throat. NECK: No masses, no nuchal rigidity. CHEST: No chest wall deformity. LUNGS: Equal air entry with no crackles or wheeze. HEART: S1 and S2 normal. Systolic murmur in the aortic area ABDOMEN: No hepatosplenomegaly, normal bowel sounds, no guarding or rigidity. SKIN: No rashes CENTRAL NERVOUS SYSTEM: No focal deficits. EXTREMITIES: No cyanosis, clubbing or edema. Results 09/13/17 09:04 09/13/17 09:04 Cardiac Enzymes 09/12/17 09/12/17 09/13/17 Range/Units 11:43 11:43 09:04 AST 24 25 (17-59) U/L CK-MB (CK-2) 1.2 (0.0-2.4) ng/mL Troponin I <0.012 (0.000-0.034) ng/mL Coagulation 09/12/17 Range/Units 11:43 PT 10.1 (9.0-12.0) sec APTT 20.1 L (22.0-30.0) sec CBC 09/12/17 09/13/17 Range/Units 11:43 09:04 WBC 13.7 H 7.1 (3.8-10.6) k/uL RBC 4.13 L 3.81 L (4.30-5.90) m/uL Hgb 13.3 12.2 L (13.0-17.5) gm/dL Hct 40.3 38.1 L (39.0-53.0) % Plt Count 150 125 L (150-450) k/uL Comprehensive Metabolic Panel 09/12/17 09/13/17 Range/Units 11:43 09:04 Sodium 136 L 140 (137-145) mmol/L Potassium 3.9 4.6 (3.5-5.1) mmol/L Chloride 101 105 (98-107) mmol/L Carbon Dioxide 25 27 (22-30) mmol/L BUN 55 H 37 H (9-20) mg/dL Creatinine 2.00 H 1.47 H (0.66-1.25) mg/dL Glucose 172 H 166 H (74-99) mg/dL Calcium 8.9 8.8 (8.4-10.2) mg/dL AST 24 25 (17-59) U/L ALT 48 49 (21-72) U/L Alkaline Phosphatase 61 67 (38-126) U/L Total Protein 5.4 L 5.2 L (6.3-8.2) g/dL Albumin 3.0 L 2.9 L (3.5-5.0) g/dL Current Medications Generic Name Dose Route Start Last Admin Trade Name Freq PRN Reason Stop Dose Admin Hydrocodone Bitart/Acetaminophen 1 each 09/12/17 15:12 [place] 10 PO Q6H PRN Moderate Pain Allopurinol 300 mg 09/13/17 09:00 09/13/17 08:28 Zyloprim PO 300 mg DAILY DAVID Administration Atorvastatin Calcium 20 mg 09/13/17 09:00 09/13/17 08:28 Lipitor PO 20 mg DAILY [facility] Administration Budesonide/Formoterol Fumarate 2 puff 09/12/17 20:00 09/13/17 08:25 Symbicort 160-4.5 Mcg Inhaler INHALATION 2 puff RT-BID [facility] Administration Calcium Carbonate/Glycine 500 mg 09/13/17 12:00 Tums PO DAILY@1200 [facility] Carvedilol 12.5 mg 09/12/17 17:30 09/13/17 06:30 Coreg PO 12.5 mg BID-W/MEALS [facility] Administration Cholecalciferol 2,000 unit 09/13/17 12:00 Vitamin D3 PO DAILY@1200 [facility] Duloxetine HCl 20 mg 09/12/17 21:00 09/12/17 20:42 Cymbalta PO 20 mg HS DAVID Administration Famotidine 40 mg 09/13/17 09:00 09/13/17 08:28 Pepcid PO 40 mg DAILY [facility]ID Administration Furosemide 20 mg 09/13/17 09:00 09/13/17 08:27 Lasix PO Not Given DAILY [facility] Heparin Sodium (Porcine) 5,000 unit 09/13/17 09:00 Heparin SQ Q12HR [facility] Sodium Chloride 1,000 mls @ 80 mls/hr 09/12/17 15:15 09/13/17 06:32 Saline 0.9% IV 80 mls/hr .[id number] [facility] Administration Ipratropium [place] 0.5 mg 09/12/17 16:00 09/13/17 08:23 Atrovent Nebulized INHALATION 0.5 mg RT-QID [facility] Administration Magnesium Oxide 200 mg 09/13/17 12:00 Mag-Ox PO DAILY@1200 [facility] Montelukast Sodium 10 mg 09/13/17 09:00 09/13/17 08:29 Singulair PO 10 mg DAILY [facility] Administration Naloxone HCl 0.2 mg 09/12/17 15:06 Narcan IV Q2M PRN Opioid Reversal Pantoprazole Sodium 40 mg 09/13/17 07:30 09/13/17 06:30 Protonix PO 40 mg [id number] [facility] Administration Sertraline HCl 100 mg 09/12/17 21:00 09/12/17 20:42 Zoloft PO 100 mg BID [facility] Administration Trazodone HCl 50 mg 09/12/17 21:00 09/12/17 20:42 Desyrel PO 50 mg HS [facility] Administration Intake and Output 09/12/17 09/13/17 09/13/17 22:59 06:59 14:59 Intake Total 376 406 2533 Output Total 80 0 0 Balance 565 378 5933 Intake: Intake, IV Titration 960 Amount Sodium Chloride 0.9% 1, 960 000 ml @ 80 mls/hr IV . [id number] [facility] Rx#:[id number] Oral 240 240 240 Output: Urine 80 Stool 0 0 0 Urine/Stool Mix 0 Other: Voiding Method Toilet Toilet Toilet # Voids 0 5 # Bowel Movements 0 Weight 82.1 kg 09/13/17 09:04 09/13/17 09:04 EKG Interpretations (text) Sinus rhythm Assessment and Plan (1) Dehydration Current Visit: Yes Status: Acute Code(s): E86.0 - DEHYDRATION SNOMED Code( s): 01721435 (2) Syncope and collapse Current Visit: Yes Status: Acute Code(s): R55 - SYNCOPE AND COLLAPSE SNOMED Code(s): 758742078 (3) Aortic stenosis Current Visit: No Status: Acute Code(s): I35.0 - NONRHEUMATIC AORTIC (VALVE ) STENOSIS SNOMED Code(s): 76326451 (4) CAD (coronary artery disease) Current Visit: No Status: Acute Code(s): I25.10 - ATHSCL HEART DISEASE OF [place] CORONARY ARTERY W/O ANG PCTRS SNOMED Code(s): 64463839 (5) COPD with exacerbation Current Visit: No Status: Acute Code(s): J44.1 - CHRONIC OBSTRUCTIVE PULMONARY DISEASE W (ACUTE) EXACERBATION SNOMED Code(s): 552640615612350 Plan: Most probably syncope is related to postural hypotension. Postural hypotension , Most probably related to dehydration and continued use of antihypertensive medications. I will hold his antihypertensive medication, check his blood pressure per postural changes. Continue hydration. Possible discharge in 24 hours. Bedside echo Card[place] showed normal LV function. Aortic stenosis , still appears to be mild to moderate. Follow-up in the office.
[2017-09-13] MEDS: SERTRALINE 100 MG TAB PO SCH ×2 (10:19→21:14)
--- NOTE | 2017-09-13 10:34 | ECHOF ---
Referral Reason: MEASUREMENTS -------- HEIGHT: 182.9 cm WEIGHT: 81.6 kg BP: 120/80 IVSd: 1.2 cm (0.6 - 1.1) LVIDd: 4.3 cm (3.9 - 5.3) LVPWd: 1.2 cm (0.6 - 1.1) IVSs: 1.8 cm LVIDs: 2.4 cm LVPWs: 2.0 cm LAESV Index (A-L): 32.65 ml/m Ao Diam: 3.0 cm (2.0 - 3.7) AV Cusp: 1.1 cm (1.5 - 2.6) LA Diam: 3.7 cm (2.7 - 3.8) MV E Jonel: 0.74 m/s MV DecT: 251 ms MV A Jonel: 1.00 m/s MV E/A Ratio: 0.74 AV maxP.64 mmHg AV meanP.05 mmHg AR PHT: 442 ms RAP: 5.00 mmHg RVSP: 23.43 mmHg FINDINGS -------- Sinus rhythm. This was a technically difficult study with suboptimal views. The left ventricular size is normal. There is mild concentric left ventricular hypertrophy. Overa ll left ventricular systolic function is normal with, an EF between 55 - 60 %. The right ventricle is normal in size and function. LA is midly dilated 29-33ml/m2. The right atrium is normal in size. Lumason used Aortic valve is trileaflet and is moderately thickened. Trace amount of aortic regurgitation. Th ere is moderate aortic stenosis present. Peak/mean gradient across the Aortic Valve is 32.64mmHg / 20.05mmHg. Mild mitral regurgitation is present. Mild tricuspid regurgitation present. The right ventricular systolic pressure, as measured by Doppl er, is 23.43mmHg. Pulmonic valve appears structurally normal. The aortic root size is normal. The pericardium is normal. CONCLUSIONS -------- 1. Sinus rhythm. 2. This was a technically difficult study with suboptimal views. 3. The left ventricular size is normal. 4. There is mild concentric left ventricular hypertrophy. 5. Overall left ventricular systolic function is normal with, an EF between 55 - 60 %. 6. The right ventricle is normal in size and function. 7. LA is midly dilated 29-33ml/m2. 8. The right atrium is normal in size. 9. Lumason used 10. Aortic valve is trileaflet and is moderately thickened. 11. Trace amount of aortic regurgitation. 12. There is moderate aortic stenosis present. 13. Peak/mean gradient across the Aortic Valve is 32.64mmHg / 20.05mmHg. 14. Mild mitral regurgitation is present. 15. Mild tricuspid regurgitation present. 16. The right ventricular systolic pressure, as measured by Doppler, is 23.43mmHg. 17. Pulmonic valve appears structurally normal. 18. The aortic root size is normal. 19. The pericardium is normal. GARDENER FLORIST: Ronda Guerrero RDCS
[2017-09-13 11:47] LABS: Glucose,Whole Blood 88 mg/dL (75-99)
[2017-09-13] MEDS ORDERED: NON-FORMULARY DRUG (Fish Oil/Dha/Epa [Fish Oil 1,200 Mg Fish Oil] 1 CAP) PO SCH (12:00)
--- NOTE | 2017-09-13 12:00 | US ---
EXAMINATION TYPE: US carotid duplex BILAT DATE OF EXAM: 09/13/2017 COMPARISON: NONE CLINICAL HISTORY: syncope. Patient states he fainted yesterday. No hx of TIA or stroke. EXAM MEASUREMENTS: RIGHT: Peak Systolic Velocity (PSV) cm/sec ----- Right CCA: 106.8 ----- Right ICA: 86.7 ----- Right ECA: 112.9 ICA/CCA ratio: 0.8 RIGHT: End Diastole cm/sec ----- Right CCA: 22.0 ----- Right ICA: 26.3 ----- Right ECA: 6.3 LEFT: Peak Systolic Velocity (PSV) cm/sec ----- Left CCA: 97.8 ----- Left ICA: 77.6 ----- Left ECA: 83.1 ICA/CCA ratio: 0.8 LEFT: End Diastole cm/sec ----- Left CCA: 18.9 ----- Left ICA: 24.8 ----- Left ECA: 8.4 VERTEBRALS (direction of flow): Right Vertebral: Antegrade Left Vertebral: Antegrade Rhythm: Arrhythmia Bilateral wall thickening. Plaque seen in bilateral bulbs, left prox CCA and right prox ECA. No eleva rosalie velocities or significant stenosis. IMPRESSION: 1. No elevated peak systolic velocities or elevation of the internal carotid artery to common carotid artery ratio to correspond hemodynamically significant stenosis within either carotid arterial syste m. However moderate amount of plaque is seen within the right carotid bulb on image 34. If there is f urther clinical concern CTA neck could be performed. 2. Incidentally noted cardiac arrhythmia. Correlate with EKG. Criteria for Assigning % of Stenosis / Diameter reduction (Estimation based on the indirect measurements of the internal carotid artery velocities (ICA PSV). 1. Normal (no stenosis)=ICA PSV < 125 cm/s: ratio < 2.0: ICA EDV<40 cm/s. 2. Less than 50% stenosis=ICA PSV < 125 cm/s: ratio < 2.0: ICA EDV<40 cm/s. 3. 50 to 69% stenosis=ICA PSV of 125 to 230 cm/s: ration 2.0 ? 4.0: ICA EDV 40-100 cm/s. 4. Greater than 70% stenosis to near occlusion= ICA PSV > 230 cm/s: ratio > 4.0: ICA EDV > 100 cm/s. 5. Near occlusion= ICA PSV velocities may be low or undetectable: variable ratio and ICA EDV. 6. Total occlusion=unable to detect flow.
--- NOTE | 2017-09-13 12:03 | P.HPIM ---
History of Present Illness H&P Date: 09/13/17 Chief Complaint: Passed out This is a 82-year-old male with a known history of diabetes mellitus diet controlled, hyperlipidemia, hypertension, prostate cancer status post prostate surgery, irregular heartbeat, and aortic stenosis. Patient presents to the emergency room after having an episode where he passed out. He reports that he had been sitting in his recliner and started to just not feel very well and passed out for about 2 minutes. was with him. He came to when the ambulance was pulling into the driveway. He denies any chest pain or shortness of breath at the time. He does remember feeling very sweaty. Denies any nausea or vomiting. Denies any bowel movement changes or urinary symptoms. Denies any seizure activity or any loss of bowel or bladder control. Patient reports that his blood pressures have been on the lower side. He was found to have a blood pressure of 85/50 and was given fluids at that time. Blood sugars at been in the 200s and patient reports no episodes of hypoglycemia home. He was found to be dehydrated with some acute kidney injury with a creatinine of 2 down to 1.47. And possibly a syncopal episode could be due to his hypotension and continuing to take blood pressure pills. Cardiology has been in to evaluate patient. They're holding blood pressure medications. This included the patient's Zestoretic. We'll also place the Lasix on hold and put parameters around the [place] to hold for systolic blood pressure less than 110 heart rate less than 55. 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 SOB w/exertion, aortic stenosis, using oxygen @2l continuously, diabetic neuropathy,BORDERLINE DIABETIC- History of Any Multi-Drug Resistant Organisms: None Reported Past Surgical History: Heart Catheterization, Joint Replacement, Orthopedic Surgery, Prostate Surgery, Tonsillectomy Additional Past Surgical History / Comment(s): bilateral hip replacement & bilateral knees replacement; Left arm tricep arm repaired; heart cath x2 colonoscopy, prostatectomy d/t cancer. steroid inj to back, skin ca removed ,05-06 cauterization d/t rt epistaxis Past Anesthesia/Blood Transfusion Reactions: Previous Problems w/ Anesthesia Additional Past Anesthesia/Blood Transfusion Reaction / Comment(s): states had uncontrolled shaking after hip surgery-no problems since Smoking Status: Former smoker - Past Family History Mother Family Medical History: No Reported History Additional Family Medical History / Comment(s): " at 94 from old age" Father Family Medical History: No Reported History Additional Family Medical History / Comment(s): " from medication interaction" Sister(s) Family Medical History: Cancer Additional Family Medical History / Comment(s): breast cancer Son(s) Family Medical History: Cancer Additional Family Medical History / Comment(s): bladder cancer Medications and Allergies Home Medications Medication Instructions Recorded Confirmed Type Carvedilol [Coreg*] 12.5 mg PO BID 08/25/15 09/12/17 History Cholecalciferol [Vitamin D3] 2,000 unit PO DAILY@1200 08/25/15 09/12/17 History Fish Oil/Dha/Epa [Fish Oil 1,200 1 cap PO DAILY@1200 08/25/15 09/12/17 History mg Fish Oil] HYDROcodone/APAP 10-325MG [[place] 1 tab PO Q6H PRN 08/25/15 09/12/17 History 10-325] Lisinopril-Hctz 20-25 mg 0.5 tab PO QAM 08/25/15 09/12/17 History [Zestoretic 20-25] Magnesium 200 mg PO DAILY@1200 08/25/15 09/12/17 History Montelukast [Singulair] 10 mg PO DAILY 08/25/15 09/12/17 History Omeprazole 20 mg PO QAM 08/25/15 09/12/17 History Ranitidine HCl [Zantac] 300 mg PO DAILY 08/25/15 09/12/17 History traZODone HCL [Desyrel] 50 mg PO HS 08/25/15 09/12/17 History Sertraline [Zoloft] 100 mg PO BID 07/19/16 09/12/17 History Fluticasone/Vilanterol [Breo 1 puff INHALATION DAILY@1800 05/03/17 09/12/17 History Ellipta 200-25 Mcg INH] Umeclidinium [place] [Incruse 1 puff INHALATION DAILY@1800 05/03/17 09/12/17 History Ellipta] Allopurinol [Zyloprim] 300 mg PO DAILY 09/12/17 09/12/17 History Atorvastatin [Lipitor] 20 mg PO DAILY 09/12/17 09/12/17 History Calcium Carbonate [Calcium] 600 mg PO DAILY 09/12/17 09/12/17 History DULoxetine HCL [Cymbalta] 20 mg PO HS 09/12/17 09/12/17 History Furosemide [Lasix] 20 mg PO DAILY 09/12/17 09/12/17 History Garlic 1 tab PO DAILY 09/12/17 09/12/17 History Allergies Allergy/AdvReac Type Severity Reaction Status Date / Time ciprofloxacin [From Cipro] Allergy Angioedema Verified 09/12/17 11:42 ciprofloxacin HCl Allergy Angioedema Verified 09/12/17 11:42 [From Cipro] ragweed pollen Allergy congestion Verified 09/12/17 11:42 warfarin sodium AdvReac Nausea & Verified 09/12/17 11:42 [From Coumadin] Vomiting Physical Exam Vitals: Vital Signs Temp Pulse Pulse Resp BP BP BP 09/13/17 08:38 80 09/13/17 08:25 76 09/13/17 08:00 97.1 F L 77 18 96/55 97/50 09/13/17 05:30 77 18 09/13/17 03:50 81 18 09/13/17 03:30 98.2 F 17 102/64 09/13/17 00:15 98.2 F 73 18 124/62 09/12/17 20:18 81 09/12/17 20:05 98.4 F 81 18 106/63 09/12/17 20:02 81 09/12/17 16:21 72 09/12/17 16:14 68 09/12/17 16:00 97.0 F L 67 16 90/53 09/12/17 15:00 97.8 F 68 16 101/58 09/12/17 12:37 69 16 88/51 BP BP Pulse Ox 09/13/17 08:38 09/13/17 08:25 95 09/13/17 08:00 97 09/13/17 05:30 124/59 97 09/13/17 03:50 09/13/17 03:30 111/64 97 09/13/17 00:15 97 09/12/17 20:18 09/12/17 20:05 95 09/12/17 20:02 96 09/12/17 16:21 09/12/17 16:14 09/12/17 16:00 97 09/12/17 15:00 98 09/12/17 12:37 97 Intake and Output 09/12/17 09/13/17 09/13/17 22:59 06:59 14:59 Intake Total 790 097 5255 Output Total 80 0 0 Balance 786 821 0573 Intake: Intake, IV Titration 960 Amount Sodium Chloride 0.9% 1, 960 000 ml @ 80 mls/hr IV . [id number] [facility] Rx#:[id number] Oral 240 240 240 Output: Urine 80 Stool 0 0 0 Urine/Stool Mix 0 Other: Voiding Method Toilet Toilet Toilet # Voids 0 5 # Bowel Movements 0 Weight 82.1 kg Head normocephalic Neck supple Lungs clear to auscultation bilaterally no wheezing or crackles Heart regular rate and rhythm S1-S2, no rub or gallop Abdomen is soft nontender nondistended positive bowel sounds no hepatosplenomegaly Extremities no edema Neuro alert and orientated to 3 Results CBC & Chem 7: 09/13/17 09:04 09/13/17 09:04 Labs: Abnormal Lab Results - Last 24 Hours (Table) 09/12/17 09/12/17 09/12/17 Range/Units 11:43 11:43 11:43 WBC 13.7 H (3.8-10.6) k/uL RBC 4.13 L (4.30-5.90) m/uL Hgb (13.0-17.5) gm/dL Hct (39.0-53.0) % MCV (80.0-100.0) fL Plt Count (150-450) k/uL Neutrophils # 12.1 H (1.3-7.7) k/uL Lymphocytes # 0.9 L (1.0-4.8) k/uL APTT 20.1 L (22.0-30.0) sec Sodium 136 L (137-145) mmol/L BUN 55 H (9-20) mg/dL Creatinine 2.00 H (0.66-1.25) mg/dL Glucose 172 H (74-99) mg/dL POC Glucose (mg/dL) (75-99) mg/dL Total Protein 5.4 L (6.3-8.2) g/dL Albumin 3.0 L (3.5-5.0) g/dL 09/12/17 09/13/17 09/13/17 Range/Units 21:18 06:03 09:04 WBC (3.8-10.6) k/uL RBC 3.81 L (4.30-5.90) m/uL Hgb 12.2 L (13.0-17.5) gm/dL Hct 38.1 L (39.0-53.0) % MCV 100.3 H (80.0-100.0) fL Plt Count 125 L (150-450) k/uL Neutrophils # (1.3-7.7) k/uL Lymphocytes # 0.9 L (1.0-4.8) k/uL APTT (22.0-30.0) sec Sodium (137-145) mmol/L BUN (9-20) mg/dL Creatinine (0.66-1.25) mg/dL Glucose (74-99) mg/dL POC Glucose (mg/dL) 131 H 101 H (75-99) mg/dL Total Protein (6.3-8.2) g/dL Albumin (3.5-5.0) g/dL 09/13/17 Range/Units 09:04 WBC (3.8-10.6) k/uL RBC (4.30-5.90) m/uL Hgb (13.0-17.5) gm/dL Hct (39.0-53.0) % MCV (80.0-100.0) fL Plt Count (150-450) k/uL Neutrophils # (1.3-7.7) k/uL Lymphocytes # (1.0-4.8) k/uL APTT (22.0-30.0) sec Sodium (137-145) mmol/L BUN 37 H (9-20) mg/dL Creatinine 1.47 H (0.66-1.25) mg/dL Glucose 166 H (74-99) mg/dL POC Glucose (mg/dL) (75-99) mg/dL Total Protein 5.2 L (6.3-8.2) g/dL Albumin 2.9 L (3.5-5.0) g/dL Thrombosis Risk Factor Assmnt - Choose All That Apply Each Factor Represents 1 point: Abnormal pulmonary function (COPD) Each Risk Factor Represents 3 Points: Age 75 years or older Thrombosis Risk Factor Assessment Total Risk Factor Score: 4 Thrombosis Risk Factor Assessment Level: Moderate Risk Assessment and Plan Assessment: 1. Syncopal episode: Possibly related to dehydration and hypotension with continuing to take antihypertensive medications. Patient is been given IV fluids. He is feeling better. Patient is been seen by cardiology they've ordered orthostatics. Patient Zestoretic has been discontinued. Also will place the Lasix on hold and place parameters around patient's [place]. Echo showed an normal EF and moderate aortic stenosis . Cardiology is anticipating discharge within the next 24 hours. 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 Carotid Doppler pending. EKG and telemetry showing a normal sinus rhythm 2. Acute on chronic kidney injury, stage III: Zestoretic and Lasix are on hold. He received IV fluid bolus in the ER and remains on normal saline at 80 mls per hour. Continue to monitor kidney function. Creatinine is down to 1.47 3. Diabetes mellitus diet controlled: Blood cultures are stable. Add sliding scale coverage. No evidence of hypoglycemia 4. Hyperlipidemia continue statin 5. History of aortic stenosis. Echo showing an EF of moderate aortic stenosis GI prophylaxis Pepcid and DVT prophylaxis subcu heparin Time with Patient: Greater than 30 (Greater than 50% of the total time spent in counseling and coordination of care.I performed an examination of the patient and discussed their management with the physician [employer]. I have reviewed the Physician [employer]'s notes and agree with the documented findings and plan of care)
[2017-09-13] MEDS: INSULIN ASPART 100 UNIT/ML 1 ML 10 ML VIAL SQ SCH ×3 (12:14→21:13)
[2017-09-13] MEDS: HEPARIN SODIUM,PORCINE 5,000 UNIT/ML 1 ML VIAL SQ SCH ×2 (12:18→21:14)
[2017-09-13] MEDS: CHOLECALCIFEROL 1,000 UNIT TAB PO SCH (12:19)
[2017-09-13] MEDS: MAGNESIUM OXIDE 400 MG TAB PO SCH (12:19)
[2017-09-13] MEDS: CALCIUM CARBONATE 500 MG CHEWABLE PO SCH (12:19)
[2017-09-13 16:27] LABS: Glucose,Whole Blood 122 mg/dL (75-99)
[2017-09-13 16:27] LABS: Glucose,Whole Blood 120 mg/dL (75-99)
[2017-09-13 20:52] LABS: Glucose,Whole Blood 137 mg/dL (75-99)
[2017-09-13] MEDS: DULoxetine HCL 20 MG CAPSULE.DR PO SCH (21:14)
[2017-09-13] MEDS: traZODone HCL 50 MG TAB PO SCH (21:14)
[2017-09-13 23:34] LABS: Hemoglobin A1C 6.4 % (4.0-6.0)
[2017-09-14] MEDS: SODIUM CHLORIDE 0.9% 1,000 ML IV SCH (05:27)
[2017-09-14 05:53] LABS: Glucose,Whole Blood 100 mg/dL (75-99)
[2017-09-14] MEDS: INSULIN ASPART 100 UNIT/ML 1 ML 10 ML VIAL SQ SCH ×2 (06:28→12:05)
[2017-09-14 06:30] LABS: Basophils % (A) 0 %; Eosinophils # (A) 0.3 k/uL (0-0.7); Eosinophils % (A) 3 %; HCT 35.9 % (39.0-53.0); HGB 11.6 gm/dL (13.0-17.5); Lymphocytes # (A) 1.2 k/uL (1.0-4.8); Lymphocytes % (A) 14 %; MCH 32.1 pg (25.0-35.0); MCHC 32.3 g/dL (31.0-37.0); MCV 99.4 fL (80.0-100.0); Macrocytosis Slight; Mean Platelet Volume 9.5; Monocytes # (A) 0.6 k/uL (0-1.0); Monocytes % (A) 7 %; Neutrophils # (A) 6.9 k/uL (1.3-7.7); Neutrophils % (A) 75 %; Platelet Count 118 k/uL (150-450); RBC 3.61 m/uL (4.30-5.90); RDW 14.1 % (11.5-15.5); WBC 9.1 k/uL (3.8-10.6)
[2017-09-14] MEDS: CARVEDILOL 12.5 MG TAB PO SCH (06:31)
[2017-09-14] MEDS: PANTOPRAZOLE 40 MG TABLET PO SCH (06:31)
[2017-09-14 06:41] LABS: Albumin 2.8 g/dL (3.5-5.0); Calcium 8.8 mg/dL (8.4-10.2); Potassium 4.7 mmol/L (3.5-5.1); Total Bilirubin 0.3 mg/dL (0.2-1.3)
[2017-09-14] MEDS: ATORVASTATIN 20 MG TAB PO SCH (07:51)
[2017-09-14] MEDS: ALLOPURINOL 300 MG TAB PO SCH (07:51)
[2017-09-14] MEDS: MONTELUKAST 10 MG TAB PO SCH (07:51)
[2017-09-14] MEDS: FAMOTIDINE 20 MG TAB PO SCH (07:51)
[2017-09-14] MEDS: SERTRALINE 100 MG TAB PO SCH (07:51)
[2017-09-14] MEDS: HEPARIN SODIUM,PORCINE 5,000 UNIT/ML 1 ML VIAL SQ SCH (07:52)
[2017-09-14] MEDS: SYMBICORT 160-4.5 MCG INHALER INHALATION SCH (08:52)
[2017-09-14] MEDS: IPRATROPIUM 0.5 MG/2.5 ML NEBU INHALATION SCH ×3 (08:52→16:25)
[2017-09-14 11:49] LABS: Glucose,Whole Blood 107 mg/dL (75-99)
[2017-09-14] MEDS: CHOLECALCIFEROL 1,000 UNIT TAB PO SCH (12:00)
[2017-09-14] MEDS: MAGNESIUM OXIDE 400 MG TAB PO SCH (12:00)
[2017-09-14] MEDS: CALCIUM CARBONATE 500 MG CHEWABLE PO SCH (12:00)
--- NOTE | 2017-09-14 12:30 | P.DS ---
Providers Date of admission: 09/12/17 15:06 Expected date of discharge: 09/14/17 Attending physician: Caden Pires Consults: 09/13/17 08:50 Consult Physician Routine Consulting Provider: Kasey Mcdonnell Consult Reason/Comments: syncope Do you want consulting provider notified?: Yes 09/13/17 12:32 Consult Physician Routine Consulting Provider: Ezekiel Cortes Consult Reason/Comments: syncope, abnormal CT scan Do you want consulting provider notified?: Yes Primary care physician: Lise John [facility] Course: Diagnoses on discharge: 1. Syncopal episode: Possibly related to dehydration and hypotension with continuing to take antihypertensive medications. Patient is been given IV fluids. He is feeling better. Patient is been seen by cardiology they've ordered orthostatics. Patient Zestoretic has been held during this admission and resumed at the time of discharge, Lasix was discontinued. Echo showed an normal EF and moderate aortic stenosis . Cardiology is anticipating discharge within the next 24 hours. 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 Carotid Doppler pending. EKG and telemetry showing a normal sinus rhythm 2. Acute on chronic kidney injury, stage III: Zestoretic and Lasix are on hold. He received IV fluid bolus in the ER and remains on normal saline at 80 mls per hour. Continue to monitor kidney function. Creatinine on admission was 2 Creatinine is down to 1.47 on 09/13/2017 creatinine at the time of discharge is down to 1.28 3. Diabetes mellitus diet controlled: Blood cultures are stable. Add sliding scale coverage. No evidence of hypoglycemia 4. Hyperlipidemia continue statin 5. History of aortic stenosis. Echo showing an EF of moderate aortic stenosis 6. 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 It does not look like it is related to his current illness with syncope. Hospital course: This is a 82-year-old male with a known history of diabetes mellitus diet controlled, hyperlipidemia, hypertension, prostate cancer status post prostate surgery, irregular heartbeat, and aortic stenosis. Patient presents to the emergency room after having an episode where he passed out. He reports that he had been sitting in his recliner and started to just not feel very well and passed out for about 2 minutes. was with him. He came to when the ambulance was pulling into the driveway. He denies any chest pain or shortness of breath at the time. He does remember feeling very sweaty. Denies any nausea or vomiting. Denies any bowel movement changes or urinary symptoms. Denies any seizure activity or any loss of bowel or bladder control. Patient reports that his blood pressures have been on the lower side. He was found to have a blood pressure of 85/50 and was given fluids at that time. Blood sugars at been in the 200s and patient reports no episodes of hypoglycemia home. He was found to be dehydrated with some acute kidney injury with a creatinine of 2 down to 1.47. And possibly a syncopal episode could be due to his hypotension and continuing to take blood pressure pills. Cardiology has been in to evaluate patient. They're holding blood pressure medications. This included the patient's Zestoretic. We'll also place the Lasix on hold and put parameters around the [place] to hold for systolic blood pressure less than 110 heart rate less than 55. During this admission patient felt well he was asymptomatic he denies any dizziness or lightheadedness he was able to ambulate without any difficulty his kidney function improved gradually he was eager to go home he was discharged on 09/14/2017 he will follow-up with his primary care physician Dr. Lise John within one week Patient Condition at Discharge: Stable Plan - Discharge Summary Discharge Rx Participant: No New Discharge Prescriptions: Continue Carvedilol [Coreg*] 12.5 mg PO BID Cholecalciferol [Vitamin D3] 2,000 unit PO DAILY@1200 Fish Oil/Dha/Epa [Fish Oil 1,200 mg Fish Oil] 1 cap PO DAILY@1200 HYDROcodone/APAP 10-325MG [[place] 10-325] 1 tab PO Q6H PRN PRN Reason: Pain Lisinopril-Hctz 20-25 mg [Zestoretic 20-25] 0.5 tab PO QAM Magnesium 200 mg PO DAILY@1200 Montelukast [Singulair] 10 mg PO DAILY Omeprazole 20 mg PO QAM Ranitidine HCl [Zantac] 300 mg PO DAILY traZODone HCL [Desyrel] 50 mg PO HS Sertraline [Zoloft] 100 mg PO BID Fluticasone/Vilanterol [Breo Ellipta 200-25 Mcg INH] 1 puff INHALATION DAILY@ 1800 Umeclidinium [place] [Incruse Ellipta] 1 puff INHALATION DAILY@1800 Allopurinol [Zyloprim] 300 mg PO DAILY Atorvastatin [Lipitor] 20 mg PO DAILY Calcium Carbonate [Calcium] 600 mg PO DAILY Garlic 1 tab PO DAILY DULoxetine HCL [Cymbalta] 20 mg PO HS Discontinued Furosemide [Lasix] 20 mg PO DAILY Discharge Medication List Carvedilol [Coreg*] 12.5 mg PO BID 08/25/15 [History] Cholecalciferol [Vitamin D3] 2,000 unit PO DAILY@1200 08/25/15 [History] Fish Oil/Dha/Epa [Fish Oil 1,200 mg Fish Oil] 1 cap PO DAILY@1200 08/25/15 [ History] HYDROcodone/APAP 10-325MG [[place] 10-325] 1 tab PO Q6H PRN 08/25/15 [History] Lisinopril-Hctz 20-25 mg [Zestoretic 20-25] 0.5 tab PO QAM 08/25/15 [History] Magnesium 200 mg PO DAILY@1200 08/25/15 [History] Montelukast [Singulair] 10 mg PO DAILY 08/25/15 [History] Omeprazole 20 mg PO QAM 08/25/15 [History] Ranitidine HCl [Zantac] 300 mg PO DAILY 08/25/15 [History] traZODone HCL [Desyrel] 50 mg PO HS 08/25/15 [History] Sertraline [Zoloft] 100 mg PO BID 07/19/16 [History] Fluticasone/Vilanterol [Breo Ellipta 200-25 Mcg INH] 1 puff INHALATION DAILY@ 1800 05/03/17 [History] Umeclidinium [place] [Incruse Ellipta] 1 puff INHALATION DAILY@1800 05/03/17 [ History] Allopurinol [Zyloprim] 300 mg PO DAILY 09/12/17 [History] Atorvastatin [Lipitor] 20 mg PO DAILY 09/12/17 [History] Calcium Carbonate [Calcium] 600 mg PO DAILY 09/12/17 [History] DULoxetine HCL [Cymbalta] 20 mg PO HS 09/12/17 [History] Garlic 1 tab PO DAILY 09/12/17 [History] Follow up Appointment(s)/Referral(s): Lise John DO [Primary Care Provider] - 1-2 days
[2017-09-14 14:19] VITALS: BP 119/59; PULSE 74; RESP 18; TEMP 98.1
--- NOTE | 2017-09-18 16:33 | CDI ---
Last Revision, March 2017 Documentation Clarification Form Date: 09/18/17 From: Princess Larkin Phone: If you have a question regarding this query, please contact Cinthia Hurtado at [phone] between 8am and 5pm. Admit Date: 09/12/2017 3:06:00 PM Patient Name: Kishore Malone Visit Number: [id number] Discharge Date: 09/14/17 ATTENTION: The Clinical Documentation Specialists (CDI) and [facility] Coding Staff appreciate your assistance in clarifying documentation. Please respond to the clarification below the line at the bottom and electronically sign. The CDI & [facility] Coding staff will review the response and follow-up if needed. Please note: Queries are made part of the Legal Health Record. If you have any questions, please contact the author of this message via ITS. Dr. Lakshmi Vilchis Heart failure is documented in the past medical history of the ED note, H&P and your consult note. History/Risk Factors: Patient has a history of hypertension, CAD, CKD and diabetes. Patient was admitted for syncope most likely due to hypotension from dehydration and continued use of lisinopril. Echocardiogram Results: Systolic function is normal with an EF between 55 - 60% . Chest X Ray: Left midlung platelike atelectasis. No additional acute cardiopulmonary process. Treatment: PO lisinopril-hctz. In your professional opinion, can you please clarify the acuity and type of CHF if known? Systolic Heart Failure: Diastolic Heart Failure: Systolic & Diastolic Heart Failure: Unable to Determine Other, please specify MTDD
--- NOTE | 2017-09-25 12:39 | CDI ---
Last Revision, March 2017 Documentation Clarification Form Date: 09/25/17 From: Princess Larkin Phone: If you have a question regarding this query, please contact Cinthia Hurtado at [phone] between 8am and 5pm Admit Date: 09/12/2017 3:06:00 PM Patient Name: Kishore Malone Visit Number: [id number] Discharge Date: 09/14/17 ATTENTION: The Clinical Documentation Specialists (CDI) and [facility] Coding Staff appreciate your assistance in clarifying documentation. Please respond to the clarification below the line at the bottom and electronically sign. The CDI & [facility] Coding staff will review the response and follow-up if needed. Please note: Queries are made part of the Legal Health Record. If you have any questions, please contact the author of this message via ITS. Dr. Lakshmi Vilchis Heart failure is documented in the past medical history of the ED note, H&P and your consult note. History/Risk Factors: Patient has a history of hypertension, CAD, CKD and diabetes. Patient was admitted for syncope most likely due to hypotension from dehydration and continued use of lisinopril. Echocardiogram Results: Systolic function is normal with an EF between 55 - 60% . Chest X Ray: Left midlung platelike atelectasis. No additional acute cardiopulmonary process. Treatment: PO lisinopril-hctz. In your professional opinion, can you please clarify the acuity and type of CHF if known? Systolic Heart Failure: Diastolic Heart Failure: Systolic & Diastolic Heart Failure: Unable to Determine Other, please specify Patient has chronic diastolic CHF. TIFFANYD
== END 2017-09-14 16:31 | disposition home or self-care (01) | DRG 312 ==
LOC: EC 11:22 → 6SEL 15:06
PROVIDERS: ADMIT Internal Medicine; ATTEND Internal Medicine
DX: I95.1 Orthostatic hypotension (principal); N17.9 Acute kidney failure, unspecified; I13.0 Hypertensive heart and chronic kidney disease with heart failure and stage 1 through stage 4 chronic kidney disease, or unspecified chronic kidney disease; J44.1 Chronic obstructive pulmonary disease with (acute) exacerbation; I50.32 Chronic diastolic (congestive) heart failure; E11.22 Type 2 diabetes mellitus with diabetic chronic kidney disease; E78.5 Hyperlipidemia, unspecified; E86.0 Dehydration; T46.4X5A Adverse effect of angiotensin-converting-enzyme inhibitors, initial encounter; I25.10 Atherosclerotic heart disease of native coronary artery without angina pectoris; I35.0 Nonrheumatic aortic (valve) stenosis; K21.9 Gastro-esophageal reflux disease without esophagitis; M19.90 Unspecified osteoarthritis, unspecified site; K44.9 Diaphragmatic hernia without obstruction or gangrene; H26.9 Unspecified cataract; N18.3 Chronic kidney disease, stage 3 (moderate); Z79.899 Other long term (current) drug therapy; Z88.1 Allergy status to other antibiotic agents; Z88.8 Allergy status to other drugs, medicaments and biological substances; Z91.048 Other nonmedicinal substance allergy status; Z85.820 Personal history of malignant melanoma of skin; Z85.46 Personal history of malignant neoplasm of prostate; Z96.643 Presence of artificial hip joint, bilateral; Z87.891 Personal history of nicotine dependence; Z87.442 Personal history of urinary calculi; Z96.653 Presence of artificial knee joint, bilateral; Z90.79 Acquired absence of other genital organ(s); Z99.81 Dependence on supplemental oxygen; Z80.3 Family history of malignant neoplasm of breast; Z80.52 Family history of malignant neoplasm of bladder; Y92.009 Unspecified place in unspecified non-institutional (private) residence as the place of occurrence of the external cause
CPT/HCPCS: 36415; 70450; 71046; 80053; 81003; 82550; 82553; 83036; 83735; 84484; 85025; 85610; 85730; 93005; 93306; 93880; 94640; 94760; 96360; 96361; 99291

== ENCOUNTER → 2017-10-18 | Outpatient (CLI) | payer MEDICARE, BC ==
--- NOTE | 2017-10-18 10:46 | MR ---
EXAMINATION TYPE: MR brain/cspine wo/w DATE OF EXAM: 10/18/2017 COMPARISON: NONE HISTORY: Neck pain/Dizziness TECHNIQUE: Multiplanar, multisequence images of the brain and brainstem is performed without and with IV contras t, utilizing 7.5 mL intravenous Gadavist . FINDINGS: Diffusion weighted images demonstrate no evidence of a recent infarct or other diffusion ab normality. Generalized degenerative change seen. Diffuse and focal areas of abnormal signal within th e white matter are nonspecific but most typical remote microvascular ischemia. There is a nasal septal deviation changes of chronic sinusitis. Midline structures demonstrate normal morphology. The craniocervical junction appears within normal limits. Post contrast images demonst rate no abnormal enhancement. The dural venous sinuses appear patent. IMPRESSION: 1. Degenerative and nonspecific white matter changes most typical remote microvascular ischemia. EXAMINATION TYPE: MR brain/cspine wo/w DATE OF EXAM: 10/18/2017 COMPARISON: NONE HISTORY: Neck pain/Dizziness Contrast: 7 mL Gadavist TECHNIQUE: T1 sagittal and coronal, T2 sagittal, and gradient echo axial views of the cervical spine are submitted. FINDINGS: The cranial cervical junction is preserved. There is no abnormal signal seen within the sp inal cord or paraspinal soft tissues. There is a degree of atrophy of the paraspinal musculature. At C2-3 there is degenerative disc disease. Mild facet arthropathy. No canal stenosis or foraminal en croachment. Chronic appearing marrow changes involving the odontoid. At C3-4 there is degenerative disc disease with more advanced facet arthropathy and uncovertebral davina nt hypertrophy. Moderate bilateral foraminal encroachment. At C4-5 there is degenerative disc disease with advanced facet arthropathy and uncovertebral joint hy pertrophy. Moderate foraminal encroachment bilaterally. No Canal stenosis. At C5-6 there is severe degenerative disc disease with facet arthropathy and uncovertebral joint hype rtrophy. No Canal stenosis. Moderate to severe bilateral foraminal encroachment. At C6-7 there is severe degenerative disc disease with central disc bulging. There is moderate to sev ere bilateral foraminal encroachment and facet arthropathy with uncovertebral joint hypertrophy. At C7-T1 there is severe degenerative disc disease with facet arthropathy and uncovertebral joint hyp ertrophy. Mild bilateral foraminal encroachment. No Canal stenosis. IMPRESSION: 1. Multilevel severe degenerative disc disease with facet arthropathy resulting in multilevel forami nal encroachment. No focal disc herniation. 2. Bilateral thyroid nodularity
== END | disposition home or self-care (01) ==
LOC: RADMRIMAIN 07:20
PROVIDERS: ATTEND Family Medicine
DX: M50.31 Other cervical disc degeneration, high cervical region (principal); M46.92 Unspecified inflammatory spondylopathy, cervical region; R90.89 Other abnormal findings on diagnostic imaging of central nervous system
CPT/HCPCS: 82565; 70553; 72156; 36415; A9581

== ENCOUNTER → 2017-12-11 | Outpatient (CLI) | payer MEDICARE, BC ==
--- NOTE | 2017-12-12 13:33 | NM ---
EXAMINATION TYPE: NM thyroid image w uptake DATE OF EXAM: 12/12/2017 COMPARISON: NONE HISTORY: Weight loss and insomnia. TECHNIQUE: Thyroid iodine uptake is calculated and images performed after the oral administration of 302 uCi I-123 uCi 1-123 Capsule. FINDINGS: There is normal distribution of activity throughout the gland. The 4 hour iodine uptake is calculated at 1.7% (normal range 8-14%). The 24-hour iodine uptake is calculated at 4.8% (normal ran ge 15-35%). IMPRESSION: Abnormal exam. Decreased thyroid uptake at both 4 and 24 hours that can be seen in hypoth yroidism, subacute thyroiditis, Kirstie's disease, or excess iodine intake.
== END | disposition home or self-care (01) ==
LOC: RADNMMAIN 09:42
PROVIDERS: ATTEND Family Medicine
DX: E07.9 Disorder of thyroid, unspecified (principal)
CPT/HCPCS: 78014; A9516

== ENCOUNTER 2021-03-09 06:53 | Day surgery (SDC) | payer MEDICARE ==
[2021-03-08 11:27] VITALS: BMI 25.8
[~2021-03-09 06:53] MED LIST changes: -DEXAMETHASONE SOD PHOSPHATE 10 MG/ML 1 ML VIAL IV ONE; -HYDROmorphone 0.5 MG/0.5 ML SYRINGE IVP PRN; +LIDOCAINE 1% (10MG/ML) FOR IV START INTRADERMA PRN; -LIDOCAINE 1% 20 ML VIAL (10MG/ML) FOR IV START INTRADERMA PRN; -ONDANSETRON 4 MG/2 ML VIAL IVP ONE
[2021-03-09 07:47] VITALS: RESP 16; TEMP 97.5
[2021-03-09 07:47] LABS: Glucose,Whole Blood 115 mg/dL (75-99)
[2021-03-09] MEDS ORDERED: PROPOFOL 10 MG/ML 20 ML VIAL IV ONE (08:00)
--- NOTE | 2021-03-09 08:06 | P.GSHP ---
History of Present Illness H&P Date: 03/09/21 Chief Complaint: GI bleed A 5-year-old male presents today for colonoscopy. His issues with rectal bleeding. Past Medical History Past Medical History: Cancer, Heart Failure, COPD, Diabetes Mellitus, GERD/Reflux, Hyperlipidemia, Hypertension, Osteoarthritis (OA), Prostate Disorder Additional Past Medical History / Comment(s): Melanoma X2 to left ear, right eye cataract, kidney stone in past, hiatal hernia, sinus/seasonal allergies, irregular heart beat, murmur, SOB w/exertion, aortic stenosis, using oxygen @2l AT BEDTIME, diabetic neuropathy, BORDERLINE DIABETIC-, BLEEDING HEMORRHOID, PROSTATE CANCER-GET CHEMO SHOTS [id number]. History of Any Multi-Drug Resistant Organisms: None Reported Past Surgical History: Heart Catheterization, Joint Replacement, Orthopedic Surgery, Prostate Surgery, Tonsillectomy Additional Past Surgical History / Comment(s): Bilateral hip replacements, bilateral knees replacements, left arm tricep repaired, heart cath X2, colonoscopy, prostatectomy d/t cancer, steroid injection to back, skin cancer removed, cauterization d/t rt Epistaxis. Past Anesthesia/Blood Transfusion Reactions: Previous Problems w/ Anesthesia Additional Past Anesthesia/Blood Transfusion Reaction / Comment(s): Uncontrolled shaking after hip surgery-no problems since. Past Psychological History: Anxiety, Depression Additional Psychological History / Comment(s): pt is independant, lives with his elis (and 2 cats) in a ranch style home that has 3 steps into home. no outside services recieved. 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 Smoking Status: Former smoker Past Alcohol Use History: Occasional Additional Past Alcohol Use History / Comment(s): Smoking: started 1946, stopped 2004, was smoking less than 1/2 ppd. Past Drug Use History: None Reported - Past Family History Sister(s) Family Medical History: Cancer Additional Family Medical History / Comment(s): Breast cancer. Son(s) Family Medical History: Cancer Additional Family Medical History / Comment(s): Bladder cancer. Medications and Allergies Home Medications Medication Instructions Recorded Confirmed Type Fish Oil/Dha/Epa [Fish Oil 1,200 1 cap PO DAILY@1200 08/25/15 03/08/21 History mg Fish Oil] carvediloL [Coreg*] 12.5 mg PO BID 08/25/15 03/08/21 History Fluticasone/Vilanterol [Breo 1 puff INHALATION DAILY 05/03/17 03/08/21 History Ellipta 200-25 Mcg Inhaler] Calcium Carbonate [Calcium] 600 mg PO DAILY 09/12/17 03/08/21 History Garlic 1 tab PO DAILY 09/12/17 03/08/21 History allopurinoL [Zyloprim] 300 mg PO DAILY 09/12/17 03/08/21 History Atorvastatin [Lipitor] 40 mg PO HS 12/28/20 03/08/21 History DULoxetine HCL [Cymbalta] 60 mg PO HS 12/28/20 03/08/21 History Famotidine [Pepcid] 20 mg PO DAILY 12/28/20 03/08/21 History Furosemide [Lasix] 20 mg PO DAILY PRN 12/28/20 03/08/21 History Gabapentin [Neurontin] 300 mg PO BID 12/28/20 03/08/21 History HYDROcodone/APAP 10-325MG [[place] 1 tab PO TID PRN 12/28/20 03/08/21 History 10-325] Levothyroxine Sodium [Synthroid] 50 mcg PO DAILY 12/28/20 03/08/21 History lisinopriL [Zestril] 20 mg PO DAILY 12/28/20 03/08/21 History traZODone HCL 150 mg PO HS 12/28/20 03/08/21 History Allergies Allergy/AdvReac Type Severity Reaction Status Date / Time ciprofloxacin [From Cipro] Allergy Angioedema Verified 03/09/21 07:16 ciprofloxacin HCl Allergy Angioedema Verified 03/09/21 07:16 [From Cipro] ragweed pollen Allergy congestion Verified 03/09/21 07:16 warfarin sodium AdvReac Nausea & Verified 03/09/21 07:16 [From Coumadin] Vomiting Surgical - Exam Vital Signs Temp Pulse Resp BP Pulse Ox 97.5 F L 61 16 133/61 94 L 03/09/21 07:30 03/09/21 07:30 03/09/21 07:30 03/09/21 07:30 03/09/21 07:30 - General well developed, well nourished, no distress - Eyes PERRL - ENT normal pinna - Neck no masses - Respiratory normal expansion - Cardiovascular Rhythm: regular - Abdomen Abdomen: soft, non tender Results - Labs Abnormal Lab Results - Last 24 Hours (Table) 03/09/21 Range/Units 07:44 POC Glucose (mg/dL) 115 H (75-99) mg/dL Assessment and Plan Assessment: GI bleed. We'll perform colonoscopy.
--- NOTE | 2021-03-09 08:24 | P.OP ---
Date of Procedure: 03/09/21 Preoperative Diagnosis: GI bleed Postoperative Diagnosis: Severe diverticulosis of sigmoid colon Procedure(s) Performed: Colonoscopy Anesthesia: MAC Surgeon: Elier Gutierrez Pathology: none sent Condition: stable Disposition: PACU Description of Procedure: The patient's placed on the endoscopy table in the lateral position. He received IV sedation. Digital rectal exam performed which revealed no significant abnormalities. The prostate was symmetric without nodules. The flexible colonoscope was then placed patient anus passed with colon. Patient extensive diverticular changes in the sigmoid colon. Several times made to maneuver the scope beyond the; however this isn't possible. In order to prevent injury to bowel scope was withdrawn. Extensive diverticular changes were noted. Scope was brought back the rectum this appeared normal. Scope withdrawn for patient. Patient was scheduled for a barium enema. It is presumed that his GI bleed may be due to diverticulosis
[2021-03-09 08:42] VITALS: BP 125/69; PULSE 63
[2021-03-09 08:45] LABS: Glucose,Whole Blood 105 mg/dL (75-99)
--- NOTE | 2021-03-09 11:46 | FL ---
EXAMINATION TYPE: FL barium enema w air contrast DATE OF EXAM: 03/09/2021 COMPARISON: CT abdomen June 21, 2017 HISTORY: Incomplete colonoscopy. History of diverticulosis. History of radiation treatment for prosta te cancer. TECHNIQUE: A double contrast barium enema study is performed. A total of approximately 4 minutes of fluoroscopic time was utilized during procedure and 26 images obtained. FINDINGS: Denitrator Operator view of the abdomen shows overall gas prominence of the colon. Patient desire to att empt the enema exam. Metallic hardware from bilateral hip surgery is partially imaged. There is levoc onvex scoliosis centered at L3 level. The enema study is performed. There is successful filling to the cecum. Exam noted suboptimal as ther e is marked redundancy of the colon and significant diffuse diverticulosis. Both findings make evalua tion suboptimal particularly for polyps. There is no obstructing or constricting neoplasm identified. Mild scarring related to diverticulitis without significant obstruction in the left lower quadrant p roximal sigmoid colon level. Appendix was filled and appeared normal towards the end of the study. The terminal ileum was not ref luxed. IMPRESSION: Suboptimal study. Successful filling to cecum. No obstructing or constricting neoplasm.
== END 2021-03-09 09:09 | disposition home or self-care (01) ==
LOC: ORWHC2ENDO 06:53
PROVIDERS: ATTEND Surgery
DX: K57.30 Diverticulosis of large intestine without perforation or abscess without bleeding (principal); K92.2 Gastrointestinal hemorrhage, unspecified; K21.9 Gastro-esophageal reflux disease without esophagitis; I11.0 Hypertensive heart disease with heart failure; I50.9 Heart failure, unspecified; J44.9 Chronic obstructive pulmonary disease, unspecified; E78.5 Hyperlipidemia, unspecified; M19.90 Unspecified osteoarthritis, unspecified site; C61 Malignant neoplasm of prostate; Z85.820 Personal history of malignant melanoma of skin; Z86.69 Personal history of other diseases of the nervous system and sense organs; Z87.442 Personal history of urinary calculi; R01.1 Cardiac murmur, unspecified; H26.9 Unspecified cataract; K44.9 Diaphragmatic hernia without obstruction or gangrene; J30.2 Other seasonal allergic rhinitis; I35.0 Nonrheumatic aortic (valve) stenosis; Z99.81 Dependence on supplemental oxygen; E11.40 Type 2 diabetes mellitus with diabetic neuropathy, unspecified; Z96.653 Presence of artificial knee joint, bilateral; Z96.643 Presence of artificial hip joint, bilateral; Z90.79 Acquired absence of other genital organ(s); Z98.890 Other specified postprocedural states; F41.9 Anxiety disorder, unspecified; F32.9 Major depressive disorder, single episode, unspecified; Z87.891 Personal history of nicotine dependence; Z80.3 Family history of malignant neoplasm of breast; Z80.52 Family history of malignant neoplasm of bladder; Z79.890 Hormone replacement therapy; Z79.51 Long term (current) use of inhaled steroids; Z79.899 Other long term (current) drug therapy; Z88.1 Allergy status to other antibiotic agents; Z88.8 Allergy status to other drugs, medicaments and biological substances; Z91.048 Other nonmedicinal substance allergy status; Z97.2 Presence of dental prosthetic device (complete) (partial)
CPT/HCPCS: 74280; 45378; J2704

== ENCOUNTER → 2023-03-14 | Day surgery (SDC) | payer MEDICARE ==
[2023-03-12 14:03] VITALS: BMI 26.6
[~2023-03-14] MED LIST changes: +PROPOFOL 10 MG/ML 20 ML VIAL IV ONE
[2023-03-14 07:30] LABS: Glucose,Whole Blood 125 mg/dL (70-110)
--- NOTE | 2023-03-14 07:47 | P.GSHP ---
History of Present Illness H&P Date: 03/14/23 Chief Complaint: GI bleed This 79-year-old male with history of GI bleed. Patient presents today for colonoscopy. Past Medical History Past Medical History: Cancer, Heart Failure, COPD, GERD/Reflux, Hyperlipidemia, Hypertension, Osteoarthritis (OA), Prostate Disorder, Thyroid Disorder Additional Past Medical History / Comment(s): Hx melanoma X2 to left ear, hx kidney stone, hiatal hernia, sinus problems/seasonal allergies, irregular heart beat, heart murmur, SOB w/exertion, aortic stenosis, uses oxygen, 2L at bedtime, neuropathy, hx hemorrhoid, Hx prostate cancer, had chemo and prostatectomy. Pre-Diabetes - Patient denies Diabetes. History of Any Multi-Drug Resistant Organisms: None Reported Past Surgical History: Heart Catheterization, Joint Replacement, Orthopedic Surgery, Prostate Surgery, Tonsillectomy Additional Past Surgical History / Comment(s): Bilateral hip replacements, bilateral knee replacements, left arm tricep repaired, heart catheterization X2, colonoscopy, prostatectomy d/t cancer, steroid injection to back, skin cancer removed, cauterization d/t right Epistaxis. Past Anesthesia/Blood Transfusion Reactions: Previous Problems w/ Anesthesia Additional Past Anesthesia/Blood Transfusion Reaction / Comment(s): Uncontrolled shaking after hip surgery-no problems since. Past Psychological History: Anxiety, Depression Smoking Status: Former smoker Past Alcohol Use History: Occasional Additional Past Alcohol Use History / Comment(s): Smoking: started 1946, stopped 2004, less than 1/2 ppd. Past Drug Use History: None Reported - Past Family History Sister(s) Family Medical History: Cancer Additional Family Medical History / Comment(s): Breast cancer. Son(s) Family Medical History: Cancer Additional Family Medical History / Comment(s): Bladder cancer. Medications and Allergies Home Medications Medication Instructions Recorded Confirmed Type Fish Oil/Dha/Epa [Fish Oil 1,200 1 cap PO DAILY 08/25/15 03/12/23 History mg Fish Oil] carvediloL [Coreg*] 12.5 mg PO BID 08/25/15 03/14/23 History Fluticasone/Vilanterol [Breo 1 puff INHALATION HS 05/03/17 03/14/23 History Ellipta 200-25 Mcg Inhaler] allopurinoL [Zyloprim] 300 mg PO DAILY 09/12/17 03/14/23 History Atorvastatin [Lipitor] 40 mg PO HS 12/28/20 03/14/23 History DULoxetine HCL [Cymbalta] 60 mg PO HS 12/28/20 03/14/23 History Gabapentin [Neurontin] 300 mg PO TID 12/28/20 03/14/23 History HYDROcodone/APAP 10-325MG [[place] 1 tab PO TID PRN 12/28/20 03/14/23 History 10-325] Levothyroxine Sodium [Synthroid] 50 mcg PO QAM 12/28/20 03/14/23 History lisinopriL [Zestril] 20 mg PO QAM 12/28/20 03/14/23 History Multivitamins, Thera [Multivitamin 1 tab PO DAILY 03/12/23 03/12/23 History (formulary)] Allergies Allergy/AdvReac Type Severity Reaction Status Date / Time ciprofloxacin [From Cipro] Allergy Angioedema Verified 03/14/23 07:14 ciprofloxacin HCl Allergy Angioedema Verified 03/14/23 07:14 [From Cipro] ragweed pollen Allergy congestion Verified 03/14/23 07:14 warfarin sodium AdvReac Nausea & Verified 03/14/23 07:14 [From Coumadin] Vomiting Surgical - Exam Vital Signs Temp Pulse Resp BP Pulse Ox 97.1 F L 90 16 143/66 93 L 03/14/23 07:18 03/14/23 07:18 03/14/23 07:18 03/14/23 07:18 03/14/23 07:18 - General well developed, well nourished, no distress - Eyes PERRL - ENT normal pinna - Neck no masses - Respiratory normal expansion - Cardiovascular Rhythm: regular - Abdomen Abdomen: soft Results - Labs Abnormal Lab Results - Last 24 Hours (Table) 03/14/23 Range/Units 07:28 POC Glucose (mg/dL) 125 H (70-110) mg/dL Assessment and Plan Assessment: History of GI bleed. We'll perform colonoscopy.
--- NOTE | 2023-03-14 07:50 | P.OP ---
Date of Procedure: 03/14/23 Preoperative Diagnosis: GI bleed Postoperative Diagnosis: Severe diverticulosis Procedure(s) Performed: Colonoscopy Anesthesia: MAC Surgeon: Elier Gutierrez Pathology: none sent Condition: stable Disposition: PACU Description of Procedure: The patient's placed on the endoscopy table in the lateral position. He received IV sedation. Digital rectal exam was performed. This revealed no ebonized. Flexible scope was then placed patient anus passed with colon. The patient had extensive diverticular disease of the sigmoid colon. The scope could not be passed beyond this due to the severe diverticular disease. Scope was then withdrawn. The rectum appeared normal. Scope was withdrawn. The patient was scheduled for a barium enema.
[2023-03-14 07:52] VITALS: RESP 16; TEMP 97.1
[2023-03-14 10:01] VITALS: BP 119/60; PULSE 77
--- NOTE | 2023-03-15 08:39 | XR ---
EXAMINATION TYPE: XR abdomen 1V DATE OF EXAM: 03/14/2023 COMPARISON: NONE HISTORY: INCOMPLTE COLONOSCOPY TECHNIQUE: Single supine KUB image of the abdomen is obtained FINDINGS: Given large amount of air within the colon barium enema cannot be performed at this time and will be attempted following day. No convincing evidence for pneumoperitoneum. No unusual calcifications. The lung bases are clear. The osseous structures are intact. IMPRESSION: 1. As above
== END | disposition home or self-care (01) ==
LOC: ORWHC2ENDO 06:35
PROVIDERS: ATTEND Surgery
DX: K57.31 Diverticulosis of large intestine without perforation or abscess with bleeding (principal); I11.0 Hypertensive heart disease with heart failure; J44.9 Chronic obstructive pulmonary disease, unspecified; K21.9 Gastro-esophageal reflux disease without esophagitis; M19.90 Unspecified osteoarthritis, unspecified site; N42.9 Disorder of prostate, unspecified; E78.5 Hyperlipidemia, unspecified; E07.9 Disorder of thyroid, unspecified; I49.9 Cardiac arrhythmia, unspecified; G62.9 Polyneuropathy, unspecified; K44.9 Diaphragmatic hernia without obstruction or gangrene; F41.9 Anxiety disorder, unspecified; F32.A Depression, unspecified; Z85.46 Personal history of malignant neoplasm of prostate; Z87.19 Personal history of other diseases of the digestive system; Z85.820 Personal history of malignant melanoma of skin; Z87.442 Personal history of urinary calculi; Z90.79 Acquired absence of other genital organ(s); Z87.891 Personal history of nicotine dependence; Z96.653 Presence of artificial knee joint, bilateral; Z80.3 Family history of malignant neoplasm of breast; Z79.890 Hormone replacement therapy; Z79.899 Other long term (current) drug therapy; Z79.51 Long term (current) use of inhaled steroids; Z88.1 Allergy status to other antibiotic agents; Z88.3 Allergy status to other anti-infective agents
CPT/HCPCS: 74018; 45330; J2704; 45378

== ENCOUNTER → 2023-03-15 | Outpatient (CLI) | payer MEDICARE ==
--- NOTE | 2023-03-15 12:04 | FL ---
EXAMINATION TYPE: FL barium enema DATE OF EXAM: 03/15/2023 COMPARISON: 03/09/2021 HISTORY: 87-year-old male incomplete colonoscopy Z5 3.9. Reached the sigmoid colon. Worsening intermi ttent rectal bleeding. TECHNIQUE: A single contrast barium enema study is performed. A total of 1 minute 41 seconds of flu oroscopic time was utilized during procedure and 83 images obtained. Total dose area product (DAP) i n uGy*m?, mGy*cm? (or similar): 15. FINDINGS: Student Finance Specialist view of the abdomen shows excessive retained bowel gas despite waiting a day after t he incomplete colonoscopy. There are bilateral total hip arthroplasties and penile implant. Degenerat ed levoconvex scoliosis. Decision is made to proceed with single contrast study. Given the limitations of a single contrast study, there is no evidence of any mass or polyp, obstruct ing or constricting lesion throughout the colon. There is diverticulosis throughout the colon, most extensively involving the proximal sigmoid colon b ut also present throughout. Redundancy of the mid to distal sigmoid colon and excessive overlap limit s evaluation further. Appendix was filled and appeared normal. There is no reflux into the terminal ileum. IMPRESSION: 1. There was excessive retained bowel gas despite waiting a day after the incomplete colonoscopy. Dec ision is made to proceed with single contrast barium enema. 2. Diffuse colonic diverticulosis, extensive within the sigmoid colon. 3. Allowing for limitations of a single contrast technique and redundancy of the mid to distal sigmoi d colon, no suspicious constricting mass is identified.
== END | disposition home or self-care (01) ==
LOC: RADFLMAIN 08:02
PROVIDERS: ATTEND Surgery
DX: K62.5 Hemorrhage of anus and rectum (principal); K57.30 Diverticulosis of large intestine without perforation or abscess without bleeding
CPT/HCPCS: 74270

== ENCOUNTER → 2023-08-21 | Outpatient (CLI) | payer MEDICARE ==
[2023-08-21 14:41] LABS: HCT 34.4 % (39.6-50.0); HGB 10.4 g/dL (13.0-17.0); MCH 29.2 pg (27.0-32.0); MCHC 30.2 g/dL (32.0-37.0); MCV 96.6 FL (80.0-97.0); Mean Platelet Volume 12.3 FL (9.5-12.2); NRBC Per 100 WBC 0 X 10*3/uL (0.00-0.01); Platelet Count 192 X 10*3/uL (140-440); RBC 3.56 X 10*6/uL (4.40-5.60); RDW 15.9 % (11.5-14.5); WBC 6.78 X 10*3/uL (4.50-10.00)
[2023-08-21 15:35] LABS: Blood Urea Nitrogen 28.4 mg/dL (9.0-27.0); Chloride 101 mmol/L (96-109); Potassium 4.9 mmol/L (3.5-5.5); Sodium 138 mmol/L (135-145)
== END | disposition home or self-care (01) ==
LOC: LABWHC1 09:21
PROVIDERS: ATTEND Internal Medicine
DX: Z01.812 Encounter for preprocedural laboratory examination (principal); I35.0 Nonrheumatic aortic (valve) stenosis
CPT/HCPCS: 36415; 80051; 82565; 84520; 85027

== ENCOUNTER → 2023-08-22 | Outpatient (CLI) | payer MEDICARE ==
[2023-08-22 13:36] LABS: INR 0.9 (<1.2); Partial Thromboplastin Time 23.8 sec (22.0-30.0); Prothrombin Time 10.1 sec (10.0-12.5)
[2023-08-22 19:02] LABS: HCT 32.6 % (39.6-50.0); HGB 10.1 g/dL (13.0-17.0); MCH 29.5 pg (27.0-32.0); MCV 95.3 FL (80.0-97.0); Mean Platelet Volume 12.3 FL (9.5-12.2); NRBC Per 100 WBC 0 X 10*3/uL (0.00-0.01); Platelet Count 166 X 10*3/uL (140-440); RBC 3.42 X 10*6/uL (4.40-5.60); WBC 5.51 X 10*3/uL (4.50-10.00)
[2023-08-22 19:03] LABS: Basophils # (A) 0.01 X 10*3/uL (0.00-0.10); Basophils % (A) 0.2 %; Eosinophils # (A) 0.15 X 10*3/uL (0.04-0.35); Eosinophils % (A) 2.7 %; Lymphocytes # (A) 0.61 X 10*3/uL (0.90-5.00); Lymphocytes % (A) 11.1 %; Monocytes # (A) 0.42 X 10*3/uL (0.20-1.00); Monocytes % (A) 7.6 %
[2023-08-22 21:05] LABS: ALT 17 U/L (10-49); AST 26 U/L (14-35); Albumin 3.6 g/dL (3.8-4.9); Albumin/Globulin Ratio 1.24 Ratio (1.60-3.17); Alkaline Phosphatase 78 U/L (41-126); BUN/Creat Ratio 17.36 Ratio (12.00-20.00); Bilirubin, Conjugated <0.20 mg/dL (0.20-0.40); Bilirubin,Unconjugated >0.20 mg/dL (0.20-1.00); Blood Urea Nitrogen 24.3 mg/dL (9.0-27.0); Calcium 9.2 mg/dL (8.7-10.3); Carbon Dioxide 24.1 mmol/L (21.6-31.8); Chloride 104 mmol/L (96-109); Chol/HDL Ratio 2.97 Ratio; Globulin 2.9 g/dL (1.6-3.3); Glucose 147 mg/dL (70-110); Magnesium 2.2 mg/dL (1.5-2.4); Potassium 4.4 mmol/L (3.5-5.5); Sodium 139 mmol/L (135-145); Total Bilirubin 0.4 mg/dL (0.3-1.2); Total Protein 6.5 g/dL (6.2-8.2)
[2023-08-22 21:26] LABS: NT-Pro-B-Type Natriuretic Pept 2513 pg/mL (0-450)
--- NOTE | 2023-08-26 19:55 | CT ---
EXAMINATION TYPE: CT TAVR Planning DATE OF EXAM: 08/22/2023 HISTORY: pre surgical TAVR CT DLP: 2055.5 mGycm Automated Exposure Control for Dose Reduction was Utilized. CONTRAST: CT scan of the chest, abdomen and pelvis is performed with IV Contrast, patient injected with 120 mL of Isovue 370. COMPARISON: TECHNIQUE: Helical imaging obtained through the chest, abdomen and pelvis during arterial phase jerardo ramone administration of radiographic contrast intravenously. FINDINGS: See report from [employer] regarding preprocedural planning CHEST: Lower Neck and Thyroid: No significant findings Lungs: No significant findings Central Airway: No significant findings Pleura: No significant findings Pulmonary Arteries: No significant findings Heart and Pericardium: Heart size normal. Moderately severe calcific atherosclerotic disease is seen in the coronary arteries. Lymph Nodes: No significant findings Mediastinum & Esophagus: No significant findings AV Calcification Severity: Moderate. ABDOMEN/PELVIS: Please note arterial phase of the imaging limits detailed evaluation of the solid abdominal organs. Liver: No significant findings Spleen: No significant findings Kidneys: No significant findings Adrenal Glands: No significant findings Pancreas: No significant findings Gallbladder: No significant findings Bowel and Mesentery: No significant findings Lymph Nodes: No significant findings Urinary Bladder: No significant findings Pelvic Organs: No significant findings Other: Extensive calcific atherosclerosis in the mid and distal abdominal aorta Other Lines/Tubes/Devices/Hardware: None IMPRESSION: At least moderate calcific aortic valve atherosclerosis. Moderately pronounced calcific coronary artery atherosclerosis. Moderately pronounced calcific distal abdominal aorta atherosclerosis.
== END | disposition home or self-care (01) ==
LOC: LABWHC1 06:34
PROVIDERS: ATTEND Thoracic Surgery (Cardiothoracic Vascular Surgery)
DX: Z01.818 Encounter for other preprocedural examination (principal); I35.0 Nonrheumatic aortic (valve) stenosis; E87.8 Other disorders of electrolyte and fluid balance, not elsewhere classified; E11.9 Type 2 diabetes mellitus without complications; N28.9 Disorder of kidney and ureter, unspecified; E78.5 Hyperlipidemia, unspecified; I25.10 Atherosclerotic heart disease of native coronary artery without angina pectoris; I49.3 Ventricular premature depolarization; I70.0 Atherosclerosis of aorta; E07.9 Disorder of thyroid, unspecified; R58 Hemorrhage, not elsewhere classified; R35.0 Frequency of micturition; Z79.899 Other long term (current) drug therapy; Z79.01 Long term (current) use of anticoagulants; R94.31 Abnormal electrocardiogram [ECG] [EKG]
CPT/HCPCS: 83880; 80061; 80053; 84443; 82248; 83735; 85025; 85610; 85730; 83036; 71275; 74174; 93005; 36415; Q9967

== ENCOUNTER 2023-08-28 11:28 | Day surgery (SDC) | payer MEDICARE ==
[~2023-08-28 11:28] MED LIST changes: +ALPRAZolam 0.25 MG TAB PO PRN; +ALPRAZolam 0.5 MG TAB PO PRN; +ASPIRIN 325 MG TAB PO STA; -LACTATED RINGERS 1,000 ML IV SCH; -LIDOCAINE 1% (10MG/ML) FOR IV START INTRADERMA PRN; +NITROGLYCERIN SL TABS 0.4 MG TAB SUBLINGUAL PRN; -PROPOFOL 10 MG/ML 20 ML VIAL IV ONE
[2023-08-28] MEDS: SODIUM CHLORIDE 0.9% 1,000 ML in EMPTY BAG 1 BAG IV SCH (11:52)
[2023-08-28 12:29] VITALS: RESP 18; TEMP 98.5
[2023-08-28] MEDS ORDERED: fentaNYL (PF) 50 MCG/ML 2 ML AMP ONE (12:47)
[2023-08-28] MEDS: IV FLUID CONTINUATION 1,000 ML IV ONE (12:47)
[2023-08-28] MEDS: BENZOCAINE SPRAY 1 CAN TOPICAL ONE ×2 (12:47→12:56)
[2023-08-28] MEDS ORDERED: VERAPAMIL 2.5 MG/ML 2 ML AMP ONE (12:50)
[2023-08-28] MEDS ORDERED: LIDOCAINE 1% INJ 10MG/ML (20 ML MDV) ONE (12:50)
[2023-08-28] MEDS: fentaNYL (PF) 50 MCG/ML 2 ML AMP IVP ONE (12:56)
[2023-08-28] MEDS: MIDAZOLAM 2 MG/2 ML VIAL IVP ONE ×2 (12:57→13:05)
--- NOTE | 2023-08-28 13:14 | P.TEE ---
Description of Procedure(s): Procedure performed: Transesophageal Echocardiogram with color flow doppler, pulsed wave doppler and continuous wave doppler, moderate conscious sedation Moderate conscious sedation: Moderate conscious sedation was supplied with direct supervision of myself using Versed and Fentanyl. Complications: none Indications: aortic stenosis PROCEDURE: After the risks, benefits and alternatives of the above mentioned procedure was explained in detail with the patient, informed consent was obtained. Patient was brought to the lab in a fasting state. Patient was given IV Versed and Fentanyl for sedation. The throat was sprayed with Hurricane to anesthetize the throat. A lubricated Omni probe was then introduced into the esophagus and stomach and multiple views were obtained. 2D echo with color flow doppler, pulsed wave doppler and continuous wave doppler was utilized. Agitated saline bubbles were injected to assess for any intra-atrial shunt. The probe was then removed. Patient tolerated the procedure well. Patient was transferred to the post procedure area in stable and satisfactory condition. FINDINGS: 1. The aortic valve is tricuspid with severe aortic stenosis with aortic valve area 0.4 cm by planimetry, maximum velocity 4.8 m/s and mean gradient 64 mmHg. 2. The mitral valve appears be normal with moderate mitral regurgitation]. 3. Tricuspid valve appears to be normal. 4. The interatrial septum is intact. No evidence of PFO. 5. Left atrial appendage is free of clot. 6. Left ventricular ejection fraction is 55%
[2023-08-28] MEDS: LIDOCAINE 1% INJ 10MG/ML (20 ML MDV) SQ ONE (13:22)
[2023-08-28] MEDS: VERAPAMIL SYRINGE (5 MG/10 ML) INTRAARTER ONE (13:23)
[2023-08-28] MEDS: HEPARIN SODIUM 1,000 UN/ML (10ML VL) IV ONE (13:26)
[2023-08-28] MEDS: IOPAMIDOL-370 100ML BTL INJ ONE (13:36)
--- NOTE | 2023-08-28 13:44 | P.CARDCATH ---
Description of Procedure: PROCEDURES PERFORMED: Bilateral coronary angiography, ultrasound guided arterial access INDICATION: aortic stenosis CONSENT:I have discussed the risks, benefits and alternative therapies for the above-mentioned procedure and for both sedation/analgesia as well as necessary blood product administration, if indicated, as they pertain to this patient. The patient has indicated understanding and acceptance of the risks and procedures discussed. PROCEDURE: After the risks, benefits and alternatives of the above mentioned procedure explained in detail with the patient, informed consent was obtained. Patient was taken to the catheterization lab and prepped and draped in usual fashion. Ultrasound guidance was used to assess for arterial access. 1% lidocaine was used to anesthetize the right radial artery. A 6-Chadian sheath was placed in the right radial artery using modified Seldinger technique and ultrasound guidance. Left coronary angiography was performed with a 5-Chadian JL 4.0 catheter and right coronary angiography was performed with a 5-Chadian FR5 catheter in various views. The right radial sheath was removed and a TR band was placed with hemostasis achieved. The patient tolerated the procedure well. Patient was transported back to the post catheterization holding area in stable condition. Conscious Sedation: Patient was monitored under the direct supervision of myself for conscious sedation using Versed and fentanyl for a total duration of 13 minutes HEMODYNAMICS: Ao: 100/61 SELECTIVE CORONARY ARTERIOGRAPHY: LEFT MAIN: The left main is a large caliber vessel which bifurcates into the LAD and circumflex. There is no significant stenosis. LEFT ANTERIOR DESCENDING CORONARY ARTERY: LAD is a large caliber vessel which wraps around to the apex. There is a mid LAD 30% stenosis and otherwise mild luminal irregularities LEFT CIRCUMFLEX CORONARY ARTERY: Left circumflex is a moderate caliber vessel with mild luminal irregularities. RIGHT CORONARY ARTERY: The right coronary artery is a large caliber vessel which gives off a PDA branch and is a co-dominant vessel. There is no significant stenosis. FINAL IMPRESSION: 1. Mild CAD with 30% mid LAD stenosis and otherwise mild luminal irregularities PLAN: 1. Aggressive risk factor modification per most recent ACC/AHA guidelines. 2. Consider AVR
[2023-08-28] MEDS: SODIUM CHLORIDE 0.9% 500 ML 500 ML IV ONE (15:00)
[2023-08-28 16:54] VITALS: BP 118/54; PULSE 80
== END 2023-08-28 16:56 | disposition home or self-care (01) ==
LOC: CATHCVL 11:28
PROVIDERS: ATTEND Internal Medicine
DX: I08.3 Combined rheumatic disorders of mitral, aortic and tricuspid valves (principal); I25.10 Atherosclerotic heart disease of native coronary artery without angina pectoris; E78.5 Hyperlipidemia, unspecified; J44.9 Chronic obstructive pulmonary disease, unspecified; I11.0 Hypertensive heart disease with heart failure; I42.9 Cardiomyopathy, unspecified; I50.9 Heart failure, unspecified; Z88.1 Allergy status to other antibiotic agents; Z79.899 Other long term (current) drug therapy; Z79.82 Long term (current) use of aspirin
CPT/HCPCS: 93312; 93320; 93325; 93458; 76937; 99152; C1769; C1894; J2250; J2001; J3010; J1644; Q9967

== ENCOUNTER → 2023-09-02 | Outpatient (CLI) | payer MEDICARE ==
[2023-09-02 19:15] LABS: Basophils # (A) 0.02 X 10*3/uL (0.00-0.10); Basophils % (A) 0.3 %; Eosinophils # (A) 0.21 X 10*3/uL (0.04-0.35); Eosinophils % (A) 3.2 %; Lymphocytes # (A) 0.76 X 10*3/uL (0.90-5.00); Lymphocytes % (A) 11.7 %; MCH 29.2 pg (27.0-32.0); MCHC 30.3 g/dL (32.0-37.0); MCV 96.5 FL (80.0-97.0); Mean Platelet Volume 12.1 FL (9.5-12.2); Monocytes # (A) 0.66 X 10*3/uL (0.20-1.00); Monocytes % (A) 10.2 %; NRBC Per 100 WBC 0 X 10*3/uL (0.00-0.01); Neutrophils # (A) 4.82 X 10*3/uL (1.80-7.70); Neutrophils % (A) 74.1 %; Platelet Count 197 X 10*3/uL (140-440); RBC 3.42 X 10*6/uL (4.40-5.60); RDW 16.3 % (11.5-14.5)
[2023-09-02 20:09] LABS: BUN/Creat Ratio 22.38 Ratio (12.00-20.00); Blood Urea Nitrogen 29.1 mg/dL (9.0-27.0); Calcium 9.4 mg/dL (8.7-10.3); Carbon Dioxide 26.9 mmol/L (21.6-31.8); Chloride 104 mmol/L (96-109); Glucose 109 mg/dL (70-110); Potassium 5.2 mmol/L (3.5-5.5); Sodium 141 mmol/L (135-145)
== END | disposition home or self-care (01) ==
LOC: LABWHC1 15:39
PROVIDERS: ATTEND Thoracic Surgery (Cardiothoracic Vascular Surgery)
DX: I35.0 Nonrheumatic aortic (valve) stenosis (principal)
CPT/HCPCS: 36415; 80048; 85025; 86850; 86900; 86901

== ENCOUNTER 2023-09-04 07:38 | Inpatient (IN) | payer MEDICARE ==
[~2023-09-04 07:38] MED LIST changes: -ALPRAZolam 0.25 MG TAB PO PRN; -ALPRAZolam 0.5 MG TAB PO PRN; -ASPIRIN 325 MG TAB PO STA; +CLEVIDIPINE BUTYRATE 25 MG in EMPTY BAG 1 BAG IV PRN; +ELECTROLYTE-A SOLUTION 1,000 ML with POTASSIUM CHLORIDE 100 MEQ, MAGNESIUM SULFATE 16 M... IV PRN; +INSULIN REGULAR 100 UNIT in SODIUM CHLORIDE 0.9% 100 ML IV PRN; -NITROGLYCERIN SL TABS 0.4 MG TAB SUBLINGUAL PRN; +NITROGLYCERIN-D5W PMX 25 MG/250 ML BTL IV PRN; +PROTAMINE SULFATE 250 MG in EMPTY BAG 1 BAG IV PRN; +SODIUM CHLORIDE 0.9% 500 ML 500 ML INTRAARTER PRN; +TRANEXAMIC ACID 2,000 MG in SODIUM CHLORIDE 0.9% 80 ML IV PRN
[2023-09-04] MEDS: SODIUM CHLORIDE 0.9% 1,000 ML IV ONE (07:56)
[2023-09-04] MEDS: ASPIRIN 325 MG TAB PO ONE (07:58)
[2023-09-04] MEDS: CLOPIDOGREL 75 MG TAB PO ONE (07:58)
[2023-09-04] MEDS: ATORVASTATIN 10 MG TAB PO ONE (07:59)
[2023-09-04 08:13] LABS: Glucose,Whole Blood 119 mg/dL (70-110)
[2023-09-04] MEDS ORDERED: PHENYLEPHRINE-0.9% NACL SYG 1,000 MCG/10 ML SYRINGE ONE (09:58)
[2023-09-04] MEDS ORDERED: ROCURONIUM 10 MG/ML (5 ML VIAL) IV ONE (09:58)
[2023-09-04] MEDS ORDERED: SUCCINYLCHOLINE CHLORIDE 200 MG/10 ML VIAL IV ONE (09:58)
[2023-09-04] MEDS ORDERED: fentaNYL (PF) 50 MCG/ML 2 ML AMP ONE (09:58)
[2023-09-04] MEDS ORDERED: PROPOFOL 10 MG/ML 20 ML VIAL IV ONE (09:58)
[2023-09-04] MEDS ORDERED: ePHEDrine 50 MG/ML 1 ML VIAL ONE (09:58)
[2023-09-04] MEDS ORDERED: HEPARIN SODIUM,PORCINE 10,000 UNIT/ML 1 ML VIAL ONE (09:58)
[2023-09-04] MEDS ORDERED: NEOSTIGMINE 1 MG/ML 10 ML VIAL ONE (09:58)
[2023-09-04] MEDS ORDERED: LIDOCAINE 1% INJ 10MG/ML (20 ML MDV) ONE (09:58)
[2023-09-04] MEDS ORDERED: GLYCOPYRROLATE 0.2 MG/ML 2 ML VIAL ONE (09:58)
[2023-09-04] MEDS ORDERED: PROTAMINE SULFATE 10 MG/ML 5 ML VIAL ONE (09:58)
[2023-09-04] MEDS: IOPAMIDOL-370 200ML BTL INJ ONE (11:29)
[2023-09-04 12:02] LABS: Basophils % (A) 0 %; Eosinophils # (A) 0.2 k/uL (0-0.7); Eosinophils % (A) 4 %; HCT 28.7 % (39.0-53.0); Hypochromasia Slight; Lymphocytes # (A) 0.6 k/uL (1.0-4.8); Lymphocytes % (A) 13 %; MCH 30.1 pg (25.0-35.0); MCHC 31.2 g/dL (31.0-37.0); MCV 96.3 fL (80.0-100.0); Mean Platelet Volume 10.1; Monocytes # (A) 0.2 k/uL (0-1.0); Monocytes % (A) 4 %; Neutrophils # (A) 3.8 k/uL (1.3-7.7); Neutrophils % (A) 77 %; Platelet Count 130 k/uL (150-450); RBC 2.98 m/uL (4.30-5.90); RDW 15.7 % (11.5-15.5); WBC 4.9 k/uL (3.8-10.6)
[2023-09-04 12:12] LABS: African American GFR (CKD) 65 (>60 ml/min/1.73 sqM); Anion Gap 1 mmol/L; Blood Urea Nitrogen 24 mg/dL (9-20); Calcium 7.9 mg/dL (8.4-10.2); Carbon Dioxide 26 mmol/L (22-30); Chloride 109 mmol/L (98-107); Glucose 104 mg/dL (74-99); Non-African American GFR(CKD) 56 (>60 ml/min/1.73 sqM); Potassium 4.7 mmol/L (3.5-5.1); Sodium 136 mmol/L (137-145)
--- NOTE | 2023-09-04 12:13 | P.OP ---
Date of Procedure: 09/04/23 Preoperative Diagnosis: Symptomatic calcific aortic stenosis Postoperative Diagnosis: Same Procedure(s) Performed: Right percutaneous transfemoral transcatheter aortic valve replacement with 34 mm Medtronic evolute flex bioprosthesis Implants: 34 mm Medtronic evolute flex bioprosthesis Anesthesia: GETA Surgeon: Peng Sadler (Cardiovascular surgeon) Ironworker Foreman #1: Nicanor Guardado (apartment groundskeeper) Estimated Blood Loss (ml): 25 IV fluids (ml): 1,000 Pathology: none sent Condition: stable Disposition: PACU Indications for Procedure: 88-year-old male with symptomatic aortic stenosis. He complains of worsening dyspnea and shortness of breath. He is very symptomatic and has a very tight valve. He was seen in the high risk valve clinic and felt to be appropriate for transcatheter aortic valve replacement. He is high risk for surgical aortic valve replacement. Informed consent was obtained. Operative Findings: Femoral access was good bilaterally. Valve was crossed and transvalvular gradients were measured. Valve implant proceeded smoothly with good expansion of the valve, trivial aortic insufficiency, valve implant levels of 2 on the right and 5 on the left. Description of Procedure: Patient was brought to the cardiac catheterization laboratory placed supine on the table anesthetized and intubated. The anterior torso and bilateral groins were sterilely prepped and draped in standard fashion. Right subclavian venous access was obtained and a 7 Belarusian peel-away sheath was placed. Through this a screw-in ventricular lead was manipulated into the apex of the right ventricle and tested. Thresholds were below 1 V. Lead was secured to the skin after removing the introducer sheath with 2-0 silk sutures. Bilateral femoral arterial access was obtained under ultrasound guidance. On the right 70 Belarusian sheath was placed, 2 Perclose devices were placed and an 8 Belarusian sheath was placed. On the left a long 7 Belarusian sheath was advanced into the descending thoracic aorta and through this a pigtail was placed into the noncoronary sinus of Valsalva. The 8 Belarusian sheath on the right was then exchanged for a 18 Belarusian sheath over a stiff wire. The valve was crossed through the sheath with a straight wire and a pigtail catheter positioned in the apex of the ventricle. Transvalvular gradients were measured. Safari wire was placed in the apex of the ventricle. A 34 Medtronic transcatheter valve and been loaded on the back table and was brought up on the field and checked under fluoroscopy. We now proceeded with predilatation of the aortic valve with a 24 Belarusian true balloon under rapid ventricular pacing. This proceeded uneventfully. Following this the 18 sheath was exchanged for the valve delivery system which was advanced through the vascular tree into the ascending aorta and across the aortic valve. Aortic root was quite horizontal and several attempts were made to deploy the valve but we could not get it to lie horizontally enough using the safari wire. Safari wire was then changed out for a Lunderquist wire was able to get the valve to lie properly. The valve was deployed under rapid ventricular pacing with deployment levels of 2 on the right and 5 on the left. REYMUNDO demonstrated only trivial aortic paravalvular insufficiency. Valve appeared to be very well- expanded. Gradients were minimal. The valve delivery system was now removed and the 2 Perclose devices were deployed with excellent hemostasis of the right femoral artery. Heparin was reversed with protamine. Hemostasis of the left femoral artery was obtained by Dr. Guardado. Temporary pacing wire was left in place although the patient did not require pacing. Patient was extubated on the table and transferred to recovery in stable condition.
[2023-09-04 12:14] LABS: Glucose,Whole Blood 98 mg/dL (70-110)
--- NOTE | 2023-09-04 13:13 | XR ---
EXAMINATION TYPE: XR chest 1V portable DATE OF EXAM: 09/04/2023 Comparison: 09/12/2017 Clinical History: 88-year-old male post-TAVR Findings: Heart is enlarged. Mild hyperinflation. Diffuse interstitial and patchy opacities increased from prio r. Right-sided transvenous pacer lead at the right ventricle. Displaced fractures of the right latera l sixth, seventh and eighth ribs. Interval placement of endovascular aortic valve replacement. Impression: 1. COPD, cardiomegaly, and pulmonary vascular congestion. 2. Minimally offset fractures of the right lateral sixth, seventh, and eighth ribs. Probably chronic injuries when correlating with the 08/22/2023 CT. Clinically correlate.
--- NOTE | 2023-09-04 13:41 | P.ANPRN ---
Procedure Note - Anesthesia - REYMUNDO Intraop Pre Bypass REYMUNDO Intraop - Anesthesia Indication: transcatheter aortic valve replacement Date of Procedure: 09/04/23 Pre-operative Diagnosis: severe aortic stenosis Post-operative Diagnosis: severe aortic stenosis status post transcatheter aortic valve replacement Surgeon: Peng Sadler Left Ventricle: ejection fraction 50-55% no regional wall motion abnormalities noted. Ejection Fraction: Normal Regional Wall Motion Abnormalities: None Left Ventricle Hypertrophy: Yes (mild) R. Ventricle Function: Normal Aortic Valve: aortic valve severely calcified. Severe aortic stenosis noted. Peak gradient across the valve is 80 mmHg and a mean gradient is 42 mmHg. Valve area is 0.6 cm. Anatomy: Trileaflet Aortic Stenosis: Severe Aortic Regurgitation: Mild ([id number]) Mitral Stenosis: None Mitral Regurgitation: Moderate Tricuspid Stenosis: None Tricuspid Regurgitation: Mild Pulmonic Stenosis: None R. Atrial Dilation: No R. Atrial PFO: Yes (mild) L. Atrial Dilation: No Aortic Dissection: No Aortic Calcification: None Plural Effusion: None - REYMUNDO Intraop Post Bypass REYMUNDO Intraop Post Bypass Procedure Performed: transcatheter aortic valve replacement Left Ventricle: ejection fraction 55-60% Regional Wall Motion Abnormalities: None R. Ventricle Function: Normal Aortic Valve: prosthetic aortic valve in situ. appears to be seated well. mild paravalvular leak seen. Peak gradient across the valve is 14 mmHg and mean gradient is 6 mmHg. Mitral Valve: Unchanged Tricuspid: Unchanged Pulmonic: Unchanged Aortic Dissection: No
[2023-09-04] MEDS ORDERED: IPRATROPIUM-ALBUTEROL 3 ML NEB INHALATION PRN (14:04)
[2023-09-04] MEDS ORDERED: CALCIUM GLUCONATE IN NACL 2 GM in SALINE 1 100ML.BAG IVPB PRN (14:04)
[2023-09-04] MEDS ORDERED: ALBUTEROL HFA INHALER INHALATION PRN ×2 (14:04→14:28)
[2023-09-04] MEDS ORDERED: Potassium Replacement Protocol 1 EACH MISC MISCELLANE PRN (14:04)
[2023-09-04] MEDS ORDERED: ONDANSETRON 4 MG/2 ML VIAL IVP PRN (14:04)
[2023-09-04] MEDS ORDERED: ACETAMINOPHEN TAB 325 MG TAB PO PRN (14:04)
[2023-09-04] MEDS ORDERED: Magnesium Replacement Protocol 1 EACH MISC MISCELLANE PRN (14:04)
--- NOTE | 2023-09-04 16:08 | XR ---
EXAMINATION TYPE: XR chest 1V portable DATE OF EXAM: 09/04/2023 3:54 PM CLINICAL INDICATION:Male, 88 years old with history of Post Operative Cardiac Surgery; LOCATED WITHIN [facility] COMPARISON: Chest radiographs from 09/04/2023. TECHNIQUE: XR chest 1V portable Frontal view of the chest. FINDINGS: Lungs/Pleura: There is no evidence of pleural effusion, focal consolidation, or pneumothorax. Pulmonary vascularity: Pulmonary vascular congestion. Heart/mediastinum: Cardiomediastinal silhouette is enlarged and stable. Cardiac conduction leads term inates in the right ventricle. Musculoskeletal: No acute osseous pathology. Stable probable right rib fractures. IMPRESSION: 1. Post cardiac surgery with mild pulmonary edema. Correlate with serum BNP. 2. Right ventricle cardiac conduction leads is stable.
--- NOTE | 2023-09-04 16:14 | P.OP ---
Description of Procedure: Transcatheter Aoritc Valve Replacement Operative report PROCEDURE PERFORMED: 1. Percutaneous Aortic Valve Implantation using a 34 mm Evolut-FX. 2. Transesophageal echocardiography (performed by anesthesia) 3. Ultrasound guided access and repair of right femoral artery access site by Perclose closure device. 4. Placement of temporary pacemaker wire. 5. Aortic root angiography 6. Pre TAVR BAV with a 24mm True balloon INDICATIONS: 1. 88 year-old with a history of severe symptomatic aortic valve stenosis. PERFORMING PHYSICIANS: 1. Nicanor Guardado, Interventional Cardiology 2. Peng Sadler MD, Cardiothoracic Surgeon. SEDATION: General anesthesia provided by anesthesia, see separate note APPROACH: Right femoral artery via percutaneous approach PROCEDURE DESCRIPTION: The patient was discussed at valve clinic with multidisciplinary approach with cardiothoracic surgeon as well as tongsman and thought better treated with TAVR. Risks, benefits, and alternatives of the procedure had been explained to the patient who understood the risks and agreed to proceed. After consents were obtained, patient was brought to the transcatheter aortic valve implantation room in the cardiac laborer shaft sinking and general anesthesia was provided by the anesthesiologist (see separate report). Once full body sterile prep was performed, right subclavian venous access was obtained and a temporary pacemaker was screwed in, performed by cardiothoracic surgery. Pacing threshholds were checked and deemed appropriate. Next the left femoral artery was accessed using a modified Seldinger technique, ultrasound guidance and micropuncture technique. A 6 Mozambican Rabi sheath was placed in the left femoral artery. Next, a 6-Mozambican pigtail catheter was advanced into the aorta and positioned in the aortic root, aortic root angiography was performed to determine optimal deployment angle. The right femoral artery was accessed using modified Seldinger technique, micropuncture technique and under direct ultrasound guidance. Femoral angiogram was done showing access in the common femoral artery and a 6Fr sheath was placed. Next preclose technique was performed using 2 Percloses. Next a 0.035 Safari wire was placed in the Aorta via a pigtail catheter. Over that the arteriotomy was serially dilated and a 18 Fr Pacifica sheath was placed. Next a 6F- AL1 catheter was advanced over a wire to the aortic root. A straight wire was advanced through the catheter and used to cross the severely stenotic valve. The AL1 was then exchanged for a 6Fr pigtail catheter and pressure measurements were obtained. The 0.035 Safari wire was then positioned in the apex. Given significant gradients, pre-balloon aortic valvuloplasty was performed with a 24 mm true balloon with rapid pacing. Next a 34 mm Evolut-FX was advanced. The valve was then positioned across the aortic valve and confirmed with aortic root angiography. The valve was initially partially deployed however needed repositioning and therefore was recaptured. The Safari wire was positioning valve somewhat suboptimally and therefore the 0.035 Safari wire was exchanged for 0.035 Lunderquist wire. The valve was then deployed in proper position using slow deployment and with rapid pacing in conjuncture with aortic root angiography and REYMUNDO. The delivery system was withdrawn back into the arch and an aortic root injection in conjunction with REYMUNDO demonstrated a satisfactory result. There was mild para valvular leak. There was no evidence of any other significant abnormalities. The preclose Perclose was then deployed in the right femoral artery and hemostasis was achieved. The pigtail was then advanced to the level of the iliac bifurcation via the left femoral access. Femoral angiogram was performed that showed no contrast leak. The left femoral angiogram demonstrated an arteriotomy in the common femoral artery and this was repaired using a 6F angioseal device with complete hemostasis. The temporary venous pacemaker was sutured in place. The patient was then transported to the postoperative room in hemodynamically stable condition, requiring no pressor support. COMPLICATIONS: None CONCLUSION: 1. Implantaion of 34 mm Evolut-FX transcatheter aortic valve via right femoral approach under REYMUNDO and fluoro guidance with trace bhavik-valvular aortic regurgitation. 2. Placement of temporary pacemaker wire 3. Aortic Root Aortogram. RECOMMENDATIONS: The patient will be monitored for hemodynamic and electrical stability.
[2023-09-04 16:19] LABS: Glucose,Whole Blood 108 mg/dL (70-110)
[2023-09-04] MEDS: SYMBICORT 160-4.5 MCG INHALER INHALATION SCH (18:09)
[2023-09-04] MEDS: IPRATROPIUM 0.5 MG/2.5 ML NEBU INHALATION SCH (18:09)
[2023-09-04] MEDS: LACTATED RINGERS 1,000 ML IV SCH ×2 (18:16→18:42)
[2023-09-04] MEDS: HYDROcodone/APAP 10-325MG 1 EACH TAB PO SCH (18:25)
[2023-09-04] MEDS: METOPROLOL TARTRATE 25 MG TAB PO ONE (18:41)
[2023-09-04] MEDS: GABAPENTIN 300 MG CAP PO SCH (18:42)
[2023-09-04] MEDS: NON FORMULARY DRUG (Alpha Lipoic Acid [Alpha Lipoic Acid] 50 MG Tablet) PO SCH (18:42)
[2023-09-04] MEDS: DULoxetine HCL 60 MG CAPSULE.DR PO SCH (20:13)
[2023-09-04] MEDS: carvediloL 12.5 MG TAB PO SCH (20:14)
[2023-09-04] MEDS: ATORVASTATIN 40 MG TAB PO SCH (20:14)
[2023-09-04] MEDS: allopurinoL 300 MG TAB PO SCH (20:14)
[2023-09-04] MEDS: SENNOSIDES-DOCUSATE SODIUM 1 EACH TAB PO SCH (20:14)
[2023-09-04] MEDS: traZODone HCL 50 MG TAB PO SCH (20:19)
[2023-09-04] MEDS: MELATONIN 5 MG TABLET PO SCH (20:19)
[2023-09-04] MEDS: CALCIUM CARB-VIT D 500 MG-5 MCG TAB PO SCH (20:39)
[2023-09-04] MEDS: MAGNESIUM OXIDE 400 MG TAB PO SCH (20:39)
[2023-09-04] MEDS: HEPARIN SODIUM,PORCINE 5,000 UNIT/ML 1 ML VIAL SQ SCH (23:23)
[2023-09-05] MEDS: LEVOTHYROXINE 50 MCG TAB PO SCH (06:16)
--- NOTE | 2023-09-05 08:24 | XR ---
EXAMINATION TYPE: XR chest 1V portable DATE OF EXAM: 09/05/2023 Comparison: 09/04/2023 Clinical History: 88-year-old male Post Operative Cardiac Surgery Findings: Heart borderline enlarged. Mild hyperinflation. Right ventricular transvenous pacer lead redemonstrat ed. Patchy interstitial densities right greater than left are similar. Impression: COPD and similar mild patchy interstitial densities, right greater than left.
[2023-09-05] MEDS ORDERED: bisacodyL 10 MG SUPP RECTAL PRN (09:00)
[2023-09-05] MEDS ORDERED: MAGNESIUM HYDROXIDE 2,400 MG/30 ML CUP PO PRN (09:00)
[2023-09-05] MEDS: FERROUS SULFATE 325 MG TAB PO SCH (09:58)
[2023-09-05] MEDS: lisinopriL 10 MG TAB PO SCH (09:58)
[2023-09-05] MEDS: ASPIRIN 81 MG PO SCH (09:58)
[2023-09-05 10:23] LABS: Basophils % (A) 0 %; Eosinophils # (A) 0.1 k/uL (0-0.7); Eosinophils % (A) 1 %; HCT 28.2 % (39.0-53.0); HGB 8.8 gm/dL (13.0-17.5); Hypochromasia Slight; Lymphocytes # (A) 0.5 k/uL (1.0-4.8); Lymphocytes % (A) 6 %; MCH 30.1 pg (25.0-35.0); MCHC 31.1 g/dL (31.0-37.0); MCV 96.9 fL (80.0-100.0); Mean Platelet Volume 9.8; Monocytes # (A) 0.4 k/uL (0-1.0); Monocytes % (A) 6 %; Neutrophils # (A) 6.3 k/uL (1.3-7.7); Neutrophils % (A) 86 %; Platelet Count 133 k/uL (150-450); RDW 15.8 % (11.5-15.5); WBC 7.4 k/uL (3.8-10.6)
[2023-09-05 11:26] LABS: ALT 15 U/L (4-49); AST 28 U/L (17-59); African American GFR (CKD) 58 (>60 ml/min/1.73 sqM); Albumin 2.8 g/dL (3.5-5.0); Alkaline Phosphatase 71 U/L (38-126); Anion Gap 5 mmol/L; Blood Urea Nitrogen 19 mg/dL (9-20); Calcium 8.5 mg/dL (8.4-10.2); Carbon Dioxide 26 mmol/L (22-30); Chloride 106 mmol/L (98-107); Glucose 141 mg/dL (74-99); Magnesium 2.1 mg/dL (1.6-2.3); Non-African American GFR(CKD) 50 (>60 ml/min/1.73 sqM); Potassium 4.4 mmol/L (3.5-5.1); Sodium 137 mmol/L (137-145); Total Bilirubin 0.5 mg/dL (0.2-1.3); Total Protein 5.9 g/dL (6.3-8.2)
[2023-09-05 11:46] LABS: Ionized Calcium 4.8 mg/dL (4.5-5.3)
--- NOTE | 2023-09-05 12:37 | CA ---
Transthoracic Echo Report Name: Kishore Malone Age: 88 Gender: M : 1935 Exam Date: 09/05/2023 08:13 Exam Location: [facility] Ht (in): 69 Wt (lb): 179 Ordering Physician: Ronda Herron Attending/Referring Phys: Peng Sadler MD [employer] Molder Keila Crfot RDCS Procedure CPT: Indications: post TAVR Cardiac Hx: Technical Quality: Good Contrast 1: Total Dose (mL): Contrast 2: Total Dose (mL): MEASUREMENTS (Male / Female) Normal Values 2D ECHO LV Diastolic Diameter PLAX 5.5 cm 4.2 - 5.9 / 3.9 - 5.3 cm LV Systolic Diameter PLAX 4.1 cm IVS Diastolic Thickness 1.3 cm 0.6 - 1.0 / 0.6 - 0.9 cm LVPW Diastolic Thickness 1.3 cm 0.6 - 1.0 / 0.6 - 0.9 cm LV Relative Wall Thickness 0.5 RV Internal Dim ED PLAX 3.2 cm LVOT Diameter 2.5 cm LA Systolic Diameter LX 4.7 cm 3.0 - 4.0 / 2.7 - 3.8 cm LV Diastolic Volume MOD BP 112.8 cm??? 67 - 155 / 56 - 104 cm??? LV Systolic Volume MOD BP 54.5 cm??? - 58 / 19 - 49 cm??? LV Ejection Fraction MOD BP 51.7 % >= 55 % LV Cardiac Index MOD BP 2680.9 cm???/min???m??? LV Diastolic Volume MOD 4C 167.8 cm??? LV Systolic Volume MOD 4C 88.8 cm??? LV Ejection Fraction MOD 4C 47.1 % LV Cardiac Index MOD 4C 3632.8 cm???/min???m??? LV Diastolic Length 4C 8.7 cm LV Systolic Length 4C 7.3 cm LV Diastolic Volume MOD 2C 101.5 cm??? LV Systolic Volume MOD 2C 54.0 cm??? LV Ejection Fraction MOD 2C 46.8 % LV Cardiac Index MOD 2C 2184.4 cm???/min???m??? LV Diastolic Length 2C 8.1 cm LV Systolic Length 2C 7.2 cm LA Volume 82.2 cm??? 18 - 58 / 22 - 52 cm??? LA Volume Index 41.1 cm???/m??? 16 - 28 cm???/m??? DOPPLER AV Peak Velocity 208.4 cm/s AV Peak Gradient 17.4 mmHg AV Mean Velocity 151.5 cm/s AV Mean Gradient 10.2 mmHg AV Velocity Time Integral 44.1 cm LVOT Peak Velocity 111.5 cm/s LVOT Peak Gradient 5.0 mmHg LVOT Velocity Time Integral 26.3 cm LVOT Stroke Volume 125.3 cm??? LVOT Stroke Volume Index 63.6 ml/m??? LVOT Cardiac Index 5761.5 cm???/min???m??? AV Area Cont Eq vti 2.8 cm??? AV Area Cont Eq pk 2.6 cm??? MV Peak Velocity 167.6 cm/s MV Peak Gradient 11.2 mmHg MV Mean Velocity 93.1 cm/s MV Mean Gradient 4.3 mmHg MV Velocity Time Integral 49.0 cm MV Area PHT 4.6 cm??? Mitral E Point Velocity 139.1 cm/s Mitral A Point Velocity 120.6 cm/s Mitral E to A Ratio 1.2 MV Deceleration Time 166.3 ms TR Peak Velocity 345.0 cm/s TR Peak Gradient 47.6 mmHg Right Ventricular Systolic Press 52.6 mmHg FINDINGS Left Ventricle Left ventricular ejection fraction is estimated at 50-55 %. Left ventricular cavity size normal. Mild concentric left ventricular hypertrophy. No obvious regional wall motion abnormalities. Right Ventricle Normal right ventricular size and function. Moderate pulmonary hypertension. Right ventricular systolic pressure estimated at 53 mm hg. Right Atrium Normal right atrial size. No right atrial thrombus or mass seen. Left Atrium Mildly increased left atrial diameter. Severely increased left atrial volume. Mildly increased left atrial area. Mitral Valve Mitral valve thickened. Mild mitral annular calcification. Mild mitral regurgitation. Aortic Valve Normally functioning bioprosthetic aortic valve without stenosis with a peak velocity of 2.1 m/s, peak gradient 17 mmHg, mean gradient 10 mmHg, and estimated aortic valve area of 2.8 cm???. No aortic regurgitation. No paravalvular aortic regurgitation. Tricuspid Valve Structurally normal tricuspid valve. Mild tricuspid regurgitation. Pulmonic Valve Structurally normal pulmonic valve. No pulmonic regurgitation. Pericardium No pericardial effusion. No pleural effusion. Aorta Normal size aortic root and proximal ascending aorta. CONCLUSIONS Normal LV systolic function Normally functioning transcatheter valve with a mean gradient of 10 mmHg and no perivalvular leak No pericardial effusion Previewed by: Dr. Mitch Smith MD (Electronically Signed) Final Date: 05 Sep 2023 12:36
[2023-09-05 12:54] VITALS: PULSE 81
[2023-09-05 12:55] VITALS: BP 96/47; RESP 17; TEMP 98.4
[2023-09-05 13:40] VITALS: BMI 26.8
--- NOTE | 2023-09-06 09:10 | P.DS ---
Providers Date of admission: 09/04/23 07:38 Expected date of discharge: 09/05/23 Attending physician: Nicanor Guardado DO Consults: 09/02/23 16:26 Consult to Anesthesia Routine Consulting Provider: Anesthesia,Services Consult Reason/Comments: Cardiac Surgery Pre-Op 09/04/23 10:53 Consult Physician Routine Consulting Provider: Peng Sadler Consult Reason/Comments: TAVR Do you want consulting provider notified?: Already Contacted Primary care physician: Chandu Bryant MD Hospital Course: MEDICAL HISTORY: 1. Calcified aortic valve with severe symptomatic aortic valve stenosis, NYHA III 2. Hypertension 3. Hyperlipidemia 4. COPD with home oxygen use at bedtime 5. Prostate cancer status post prostatectomy 6. Previous tobacco dependence PROCEDURE: 1. Percutaneous aortic valve implantation using a 34 mm Evolut FX under REYMUNDO and fluoroscopy guidance 2. Transesophageal echocardiography performed by anesthesia 3. Ultrasound-guided access and repair of right femoral artery access site by Perclose closure device 4. Placement of temporary pacemaker wire 5. Aortic root angiography 6. Pre-TAVR BAV with 24 mm True balloon HISTORY OF PRESENT ILLNESS: This is a 88-year-old gentleman who follows on an outpatient basis with Dr. Bryant for primary care and Dr. Guardado for cardiology. He has a known history of severe aortic stenosis and has been symptomatic with increased exertional dyspnea. He had been referred to structural heart clinic for evaluation for transcatheter aortic valve replacement after heart catheterization and transesophageal echocardiogram were completed. Echocardiography demonstrated normal systolic function with EF 55%, aortic valve area 0.4 cm with a mean gradient 64 mmHg. Heart catheterization showed no significant obstructive coronary disease. After workup was completed STS risk score was calculated along with incremental risk and the patient was felt to be high risk for surgical aortic valve replacement, therefore transcatheter aortic valve replacement was recommended. The usual course of TAVR was discussed in detail the patient, risks and benefits were reviewed, shared decision making between cardiology, surgery, and the patient/family took place, and the patient consented to proceed with the procedure. HOSPITAL COURSE: The patient was brought to the hospital on 09/04/23, was taken to the extended stay area, prepared in the usual fashion, and subsequently taken to the cardiac catheterization laboratory where Dr. Guardado and Dr. Sadler completed TAVR procedure under general anesthesia with fluoroscopy and REYMUNDO. The valve was deployed under rapid ventricular pacing and proceeded without event. At the end of the procedure there was mean gradient 6 mmHg, hemodynamics were felt to be acceptable, and there was mild perivalvular leak. Upon completion of the procedure the patient was extubated and was transferred to the cardiac stepdown unit unit where he was recovered and monitored hemodynamically. His oxygen was titrated down, he was tolerating oral diet, his pain was controlled, follow-up TTE demonstrated normal left ventricular systolic function with EF 50- 55%, mean gradient 10 mmHg and no aortic insufficiency or paravalvular leak, and he was ready to be discharged to home on postoperative day #1. He received written and verbal instruction regarding his medications, activity restrictions, signs and symptoms requiring physician notification, and follow-up appointments. Patient Condition at Discharge: Stable Plan - Discharge Summary Discharge Rx Participant: Yes New Discharge Prescriptions: New Aspirin 81 mg PO DAILY #30 tab Sennosides-Docusate Sodium [Senokot-S] 2 each PO HS PRN tab PRN Reason: Constipation Acetaminophen Tab [Tylenol] 650 mg PO Q4HR PRN tab PRN Reason: Fever And/ Or Mild Pain (1-3) Continue carvediloL [Coreg*] 12.5 mg PO BID Fish Oil/Dha/Epa [Fish Oil 1,200 mg Fish Oil] 2 cap PO DAILY allopurinoL [Zyloprim] 300 mg PO HS HYDROcodone/APAP 10-325MG [Brandywine 10-325] 1 tab PO QID Levothyroxine Sodium [Synthroid] 50 mcg PO QAM Melatonin [Melatonin ER] 10 mg PO HS Magnesium 250 mg PO AC-LUNCH Fluticasone/Umeclidin/Vilanter [Trelegy Ellipta 200-62.5-25] 1 puff INHALATION HS Ferrous Sulfate [Iron (65 MG Elemental)] 325 mg PO DAILY Calcium Carbonate/Vitamin D3 [Calcium 500 mg Chewable Tablet] 2 tab PO AC- LUNCH Albuterol Sulfate [Ventolin HFA] 1 - 2 puff INHALATION Q6H PRN PRN Reason: Wheezing Alpha Lipoic Acid 200 mg PO AC-LUNCH Gabapentin [Neurontin] 300 mg PO TID lisinopriL [Zestril] 10 mg PO QAM DULoxetine HCL [Cymbalta] 60 mg PO HS Atorvastatin [Lipitor] 40 mg PO HS traZODone HCL 150 mg PO HS Garlic 1,000 mg PO DAILY Discharge Medication List Fish Oil/Dha/Epa [Fish Oil 1,200 mg Fish Oil] 2 cap PO DAILY 08/25/15 [History] carvediloL [Coreg*] 12.5 mg PO BID 08/25/15 [History] allopurinoL [Zyloprim] 300 mg PO HS 09/12/17 [History] Atorvastatin [Lipitor] 40 mg PO HS 12/28/20 [History] DULoxetine HCL [Cymbalta] 60 mg PO HS 12/28/20 [History] Gabapentin [Neurontin] 300 mg PO TID 12/28/20 [History] HYDROcodone/APAP 10-325MG [Brandywine 10-325] 1 tab PO QID 12/28/20 [History] Levothyroxine Sodium [Synthroid] 50 mcg PO QAM 12/28/20 [History] lisinopriL [Zestril] 10 mg PO QAM 12/28/20 [History] Albuterol Sulfate [Ventolin HFA] 1 - 2 puff INHALATION Q6H PRN 08/26/23 [History] Alpha Lipoic Acid 200 mg PO AC-LUNCH 08/26/23 [History] Calcium Carbonate/Vitamin D3 [Calcium 500 mg Chewable Tablet] 2 tab PO AC-LUNCH 08/26/23 [History] Ferrous Sulfate [Iron (65 MG Elemental)] 325 mg PO DAILY 08/26/23 [History] Fluticasone/Umeclidin/Vilanter [Trelegy Ellipta 200-62.5-25] 1 puff INHALATION HS 08/26/23 [History] Garlic 1,000 mg PO DAILY 08/26/23 [History] Magnesium 250 mg PO AC-LUNCH 08/26/23 [History] Melatonin [Melatonin ER] 10 mg PO HS 08/26/23 [History] traZODone HCL 150 mg PO HS 08/26/23 [History] Acetaminophen Tab [Tylenol] 650 mg PO Q4HR PRN tab 09/05/23 [Rx] Aspirin 81 mg PO DAILY #30 tab 09/05/23 [Rx] Sennosides-Docusate Sodium [Senokot-S] 2 each PO HS PRN tab 09/05/23 [Rx] Follow up Appointment(s)/Referral(s): Chandu Bryant MD [Primary Care Provider] - As Needed Nicanor Guardado DO [STAFF PHYSICIAN] - 09/13/23 3:00 pm (Your appointment 09/13/23 is for a groin check. You also have a 30 day TAVR follow up and echo with Dr. Guardado 11/12/23 @ 7:45 am, and a 1 year TAVR follow up and echo with Dr. Guardado 08/04/24 @ 1 pm) Clinic,Structural Heart [NON-STAFF] - 11/12/23 8:45 am (Your appointment 11/12/23 is part of 30 day post TAVR follow up, you also have a 1 year follow up in the Valve clinic 08/04/24 @ 12:30 pm) Ambulatory/Diagnostic Orders: Basic Metabolic Panel [LAB.AMB] Location: None Selected Basic Metabolic Panel [LAB.AMB] Location: None Selected Complete Blood Count w/diff [LAB.AMB] Location: None Selected Complete Blood Count w/diff [LAB.AMB] Location: None Selected Activity/Diet/Wound Care/Special Instructions: DISCHARGE INSTRUCTIONS: 1. No driving for 1 week, or until physician gives their ok. 2. No lifting, pushing, or pulling more than 5-10 pounds for 1 week. 3. Hold both groins when you cough or sneeze for the next 2 weeks. Bruising is common, but report increased swelling, pain or fever >101F 4. Shower daily. No pool, hot tub, or bathtub for 1 week 5. No powders, lotions, ointments on incisions. 6. No straining, including for bowel movements. Use stool softner if necessary 7. Stairs are not an issue. Go slowly, using handrail and take 1 step at a time. Ambulate several times daily 8. Continue pain control per as needed orders. 9. Take only the medications listed on your discharge form 10. Eat low salt (limited to 2 grams or 2000 milligrams) daily, avoid adding salt, avoid canned/processed foods 11. Take your weight daily in the morning and record, bring with you to your follow up appointments 12. Keep all follow up appointments. You will need a valve clinic appointment at 30 days and 1 year post procedure for follow up 13. You have been referred to and are expected to begin Cardiac Rehab in approximately 4 weeks. For any questions or concerns please call your valve coordinators: Ronda or Stefan @ Discharge Disposition: HOME SELF-CARE
== END 2023-09-05 14:35 | disposition home or self-care (01) | DRG 267 ==
LOC: 2ORMAIN 07:38 → 3SCARD 14:26
PROVIDERS: ADMIT Internal Medicine; ATTEND Internal Medicine
PROC: B3101ZZ Fluoroscopy of Thoracic Aorta using Low Osmolar Contrast (ICD-10-PCS; 2023-09-04)
PROC: B3101ZZ Fluoroscopy of Thoracic Aorta using Low Osmolar Contrast (ICD-10-PCS; 2023-09-04)
PROC: 02RF38Z Replacement of Aortic Valve with Zooplastic Tissue, Percutaneous Approach (ICD-10-PCS; principal; 2023-09-04 10:15)
PROC: B24BZZ4 Ultrasonography of Heart with Aorta, Transesophageal (ICD-10-PCS; 2023-09-04 10:15)
DX: I08.3 Combined rheumatic disorders of mitral, aortic and tricuspid valves (principal); Z00.6 Encounter for examination for normal comparison and control in clinical research program; C61 Malignant neoplasm of prostate; J44.9 Chronic obstructive pulmonary disease, unspecified; I11.9 Hypertensive heart disease without heart failure; Z99.81 Dependence on supplemental oxygen; E78.5 Hyperlipidemia, unspecified; Z90.79 Acquired absence of other genital organ(s); Z87.891 Personal history of nicotine dependence
CPT/HCPCS: 33210; 33361; 71045; 80048; 80053; 82330; 83735; 85025; 93306; 93312; 93320; 93325; 94640

== ENCOUNTER → 2023-11-06 | Outpatient (CLI) | payer MEDICARE ==
[2023-11-06 18:29] LABS: Basophils # (A) 0.02 X 10*3/uL (0.00-0.10); Basophils % (A) 0.3 %; Eosinophils # (A) 0.28 X 10*3/uL (0.04-0.35); Eosinophils % (A) 4.5 %; HCT 30.9 % (39.6-50.0); HGB 9.1 g/dL (13.0-17.0); Lymphocytes # (A) 0.78 X 10*3/uL (0.90-5.00); Lymphocytes % (A) 12.5 %; MCH 28.9 pg (27.0-32.0); MCHC 29.4 g/dL (32.0-37.0); MCV 98.1 FL (80.0-97.0); Mean Platelet Volume 11.1 FL (9.5-12.2); Monocytes # (A) 0.77 X 10*3/uL (0.20-1.00); Monocytes % (A) 12.3 %; NRBC Per 100 WBC 0 X 10*3/uL (0.00-0.01); Neutrophils # (A) 4.39 X 10*3/uL (1.80-7.70); Neutrophils % (A) 70.1 %; Platelet Count 205 X 10*3/uL (140-440); RBC 3.15 X 10*6/uL (4.40-5.60); RDW 15.3 % (11.5-14.5); WBC 6.26 X 10*3/uL (4.50-10.00)
[2023-11-06 19:06] LABS: BUN/Creat Ratio 18.42 Ratio (12.00-20.00); Blood Urea Nitrogen 22.1 mg/dL (9.0-27.0); Calcium 9.2 mg/dL (8.7-10.3); Carbon Dioxide 26.9 mmol/L (21.6-31.8); Chloride 102 mmol/L (96-109); Glucose 136 mg/dL (70-110); Potassium 4.5 mmol/L (3.5-5.5); Sodium 139 mmol/L (135-145)
== END | disposition home or self-care (01) ==
LOC: LABWHC1 13:14
PROVIDERS: ATTEND Nurse Practitioner Acute Care
DX: I35.0 Nonrheumatic aortic (valve) stenosis (principal); Z95.2 Presence of prosthetic heart valve
CPT/HCPCS: 36415; 80048; 85025

== ENCOUNTER 2023-11-26 07:23 | Day surgery (SDC) | payer MEDICARE ==
[2023-11-25 11:30] VITALS: BMI 25.2
[~2023-11-26 07:23] MED LIST changes: +ACETAMINOPHEN TAB 500 MG TAB PO PRN; -CLEVIDIPINE BUTYRATE 25 MG in EMPTY BAG 1 BAG IV PRN; -ELECTROLYTE-A SOLUTION 1,000 ML with POTASSIUM CHLORIDE 100 MEQ, MAGNESIUM SULFATE 16 M... IV PRN; +HEPARIN SODIUM,PORCINE 5,000 UNIT/ML 1 ML VIAL SQ PRN; +HYDROmorphone 0.5 MG/0.5 ML SYRINGE IVP PRN; -INSULIN REGULAR 100 UNIT in SODIUM CHLORIDE 0.9% 100 ML IV PRN; +MIDAZOLAM 2 MG/2 ML VIAL IV PRN; -NITROGLYCERIN-D5W PMX 25 MG/250 ML BTL IV PRN; -PROTAMINE SULFATE 250 MG in EMPTY BAG 1 BAG IV PRN; +Pre Op ABX Message 1 EACH MISC MISCELLANE ONE; -SODIUM CHLORIDE 0.9% 500 ML 500 ML INTRAARTER PRN; -TRANEXAMIC ACID 2,000 MG in SODIUM CHLORIDE 0.9% 80 ML IV PRN
[2023-11-26] MEDS: IV FLUID CONTINUATION 1,000 ML IV ONE (07:51)
[2023-11-26 08:06] VITALS: RESP 16; TEMP 97.3
[2023-11-26] MEDS: LACTATED RINGERS 1,000 ML IV SCH (08:12)
[2023-11-26 08:14] LABS: Glucose,Whole Blood 117 mg/dL (70-110)
[2023-11-26] MEDS: LIDOCAINE 1%-EPI 1:100,000 20 ML VIAL SQ ONE ×2 (08:42)
[2023-11-26] MEDS ORDERED: KETAMINE HCL IN 0.9 % NACL 50 MG/5 ML SYRINGE ONE (08:46)
[2023-11-26] MEDS ORDERED: fentaNYL (PF) 50 MCG/ML 2 ML AMP ONE (08:46)
[2023-11-26] MEDS ORDERED: PROPOFOL 10 MG/ML 20 ML VIAL IV ONE (08:46)
[2023-11-26] MEDS ORDERED: MIDAZOLAM 2 MG/2 ML VIAL ONE (08:46)
[2023-11-26] MEDS: SODIUM CHLORIDE 0.9% 50 ML with ceFAZolin 2,000 MG IV ONE (08:53)
--- NOTE | 2023-11-26 09:34 | P.OP ---
Date of Procedure: 11/26/23 Preoperative Diagnosis: Left neck skin lesion Postoperative Diagnosis: Left neck skin lesion Procedure(s) Performed: Excision of left neck skin lesion Anesthesia: MAC Surgeon: Elier Gutierrez Estimated Blood Loss (ml): 5 Pathology: other (Skin lesion) Condition: stable Disposition: PACU Description of Procedure: The patient was placed on the operative table in the supine position. He received IV sedation. The skin was anesthetized 1% local Xylocaine. Using a 15 blade elliptical skin incision was made around the skin lesion at the base of the left neck. The specimen measured approxi-3 x 2 cm. Electrocautery the lesion was excised. Hemostasis achieved electrocautery. And then the skin was closed with 3-0 nylon suture. Patient Toller procedure well. Sent to recovery in stable condition.
[2023-11-26 09:54] VITALS: BP 146/66; PULSE 74
== END 2023-11-26 10:05 | disposition home or self-care (01) ==
LOC: OR 07:23
PROVIDERS: ATTEND Surgery
DX: C44.42 Squamous cell carcinoma of skin of scalp and neck (principal); I10 Essential (primary) hypertension; E78.5 Hyperlipidemia, unspecified; K21.9 Gastro-esophageal reflux disease without esophagitis; E03.9 Hypothyroidism, unspecified; I25.10 Atherosclerotic heart disease of native coronary artery without angina pectoris; J44.1 Chronic obstructive pulmonary disease with (acute) exacerbation; Z87.891 Personal history of nicotine dependence; Z88.1 Allergy status to other antibiotic agents; Z88.8 Allergy status to other drugs, medicaments and biological substances; Z91.09 Other allergy status, other than to drugs and biological substances; Z79.890 Hormone replacement therapy; Z79.899 Other long term (current) drug therapy; Z79.51 Long term (current) use of inhaled steroids; Z79.82 Long term (current) use of aspirin
CPT/HCPCS: 11623; J2250; J0690; J3010; J2704; 88305

== ENCOUNTER 2023-12-25 07:57 | Day surgery (SDC) | payer MEDICARE ==
[~2023-12-25 07:57] MED LIST changes: -HEPARIN SODIUM,PORCINE 5,000 UNIT/ML 1 ML VIAL SQ PRN; -HYDROmorphone 0.5 MG/0.5 ML SYRINGE IVP PRN; -MIDAZOLAM 2 MG/2 ML VIAL IV PRN; -Pre Op ABX Message 1 EACH MISC MISCELLANE ONE
[2023-12-25] MEDS: IV FLUID CONTINUATION 1,000 ML IV ONE (08:20)
[2023-12-25 08:38] LABS: Glucose,Whole Blood 109 mg/dL (70-110)
[2023-12-25 08:43] VITALS: TEMP 97
[2023-12-25] MEDS: HEPARIN SODIUM,PORCINE 5,000 UNIT/ML 1 ML VIAL SQ PRN (09:01)
[2023-12-25] MEDS: DEXAMETHASONE SOD PHOSPHATE 4 MG/ML 1 ML VIAL IM STA (09:02)
[2023-12-25] MEDS ORDERED: DEXAMETHASONE SOD PHOSPHATE 4 MG/ML 1 ML VIAL IVP STA (09:03)
[2023-12-25] MEDS: LIDOCAINE 1%-EPI 1:100,000 20 ML VIAL SQ ONE ×2 (09:34→10:03)
[2023-12-25] MEDS ORDERED: LIDOCAINE 1% INJ 10MG/ML (20 ML MDV) ONE (09:39)
[2023-12-25] MEDS ORDERED: PROPOFOL 10 MG/ML 20 ML VIAL IV ONE (09:39)
[2023-12-25] MEDS ORDERED: MIDAZOLAM 2 MG/2 ML VIAL ONE (09:39)
[2023-12-25] MEDS ORDERED: KETAMINE HCL IN 0.9 % NACL 50 MG/5 ML SYRINGE ONE (09:39)
[2023-12-25] MEDS: BACITRACIN ZINC 500 UNIT/GM OINT 28.4 GM TUBE TOPICAL ONE (10:19)
--- NOTE | 2023-12-25 10:26 | P.OP ---
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 He received IV sedation. His neck was prepped draped usual fashion. The area of the pr evious excision site was anesthetized with 1% local Xylocaine. Using a 15 blade elliptical skin incision was made around the scar. Electrocautery the skin lesion was dissected free sent pathology. Hemostasis was achieved. And then skin was closed interrupted 3-0 Monocryl suture. The specimen was oriented with a suture on the superior aspect. Patient Toller procedure well. He was sent to recovery room in stable condition.
[2023-12-25 11:01] VITALS: BP 159/74; PULSE 74; RESP 16
== END 2023-12-25 11:17 | disposition home or self-care (01) ==
LOC: OR 07:57
PROVIDERS: ATTEND Surgery
DX: C44.42 Squamous cell carcinoma of skin of scalp and neck
CPT/HCPCS: 88305

== ENCOUNTER → 2024-01-29 | Outpatient (CLI) | payer MEDICARE ==
[2024-01-29 13:21] LABS: African American GFR (CKD) 78 (>60 ml/min/1.73 sqM); Blood Urea Nitrogen 28 mg/dL (9-20); Non-African American GFR(CKD) 67 (>60 ml/min/1.73 sqM)
--- NOTE | 2024-01-29 14:52 | CT ---
EXAMINATION TYPE: CT soft tissue neck w con CT DLP: 348.00 mGycm, Automated exposure control for dose reduction was used. DATE OF EXAM: 01/29/2024 2:17 PM COMPARISON: None. 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 Difficulty swallowing since August 2023 TECHNIQUE: Standard enhanced CT of the neck following intravenous administration of 100 cc of Isovue 300. Axial sections with coronal and sagittal reformats were obtained. FINDINGS: Brain: Visualized portions are grossly unremarkable. Orbits: Unremarkable Sinuses: Grossly unremarkable. Suprahyoid Neck: The oropharynx, oral cavity, parapharyngeal and retropharyngeal spaces are clear and symmetric. The nasopharynx is unremarkable. Infrahyoid Neck: The hypopharynx is clearly asymmetric. Left supraglottic mass measuring 2.9 x 2.0 x 2.6 cm in TV, AP, CC dimensions (series 5, image 40). Mass crosses midline and extends to the false v ocal cords. The subglottis is clear and symmetric. Vocal cords appear unremarkable. The vallecula is unremarkable. Parotid Glands: Unremarkable. Submandibular Glands: Unremarkable. Musculoskeletal: Advanced degenerative disc disease changes of the visualized spine are present. Dext rocurvature of the cervical spine. Lymph nodes: Heterogenous 1.3 cm ovoid lesion within the posterior upper jugular region abutting the left internal jugular vein and SCM (series 5, image 42). Additional heterogenous ovoid lesion in the upper posterior left triangle measuring up to 1.5 cm (series 5, image 32). No other enlarged lymph n odes identified. Vascular structures: Mild atherosclerotic calcifications of the patent arterial vasculature. Thoracic Inlet/airway: Airway is patent. Mild centrilobular and paraseptal emphysematous changes. Soft tissues/Thyroid: Subcentimeter hypodense nodules within the thyroid gland. Other: none. 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 [facility], , 01/29/2024 2:50 PM
== END | disposition home or self-care (01) ==
LOC: RADCTMAIN 12:38
PROVIDERS: ATTEND Otolaryngology
DX: D38.0 Neoplasm of uncertain behavior of larynx
CPT/HCPCS: 36415; 70491; 82565; 84520

== ENCOUNTER 2024-02-20 15:23 | Emergency (ER) | payer MEDICARE ==
[2024-02-20 15:35] VITALS: TEMP 98
[2024-02-20] MEDS: fentaNYL (PF) 50 MCG/ML 2 ML AMP IVP STA (16:44)
--- NOTE | 2024-02-20 17:22 | XR ---
EXAMINATION TYPE: XR chest 1V portable DATE OF EXAM: 02/20/2024 5:12 PM CLINICAL INDICATION: Male, 88 years old with history of shortness of breath; [facility] COMPARISON: Chest radiographs from 09/05/2023. TECHNIQUE: XR chest 1V portable Frontal view of the chest. FINDINGS: Lungs/Pleura: Prominent interstitial lung markings are seen scattered throughout the lungs. No eviden ce of focal consolidation, pneumothorax or pleural effusion. Pulmonary vascularity: Unremarkable. Heart/mediastinum: Cardiomediastinal silhouette is unremarkable. Musculoskeletal: No acute osseous pathology. Remote right-sided rib injuries. Other findings: None Lines/Tubes: Tracheostomy cannula tip projecting over the trachea. IMPRESSION: Chronic changes without acute pulmonary process. No significant change from prior. [facility], , 02/20/2024 5:19 PM
[2024-02-20 17:23] LABS: Basophils % (A) 0 %; Eosinophils # (A) 0.2 k/uL (0-0.7); Eosinophils % (A) 2 %; HGB 9.9 gm/dL (13.0-17.5); Lymphocytes # (A) 0.5 k/uL (1.0-4.8); Lymphocytes % (A) 6 %; MCH 30.2 pg (25.0-35.0); MCHC 32.9 g/dL (31.0-37.0); Mean Platelet Volume 10.7; Monocytes # (A) 0.6 k/uL (0-1.0); Monocytes % (A) 7 %; Neutrophils # (A) 6.4 k/uL (1.3-7.7); Neutrophils % (A) 82 %; Platelet Count 233 k/uL (150-450); RBC 3.26 m/uL (4.30-5.90); RDW 15.8 % (11.5-15.5); WBC 7.8 k/uL (3.8-10.6)
[2024-02-20 17:27] LABS: ALT 42 U/L (4-49); African American GFR (CKD) 31 (>60 ml/min/1.73 sqM); Albumin 3.4 g/dL (3.5-5.0); Anion Gap 8 mmol/L; Calcium 8.6 mg/dL (8.4-10.2); Carbon Dioxide 29 mmol/L (22-30); Chloride 102 mmol/L (98-107); Glucose 135 mg/dL (74-99); Non-African American GFR(CKD) 27 (>60 ml/min/1.73 sqM); Sodium 139 mmol/L (137-145); Total Bilirubin 0.8 mg/dL (0.2-1.3); Total Protein 6.9 g/dL (6.3-8.2)
[2024-02-20 17:41] LABS: INR 0.9 (<1.2); Partial Thromboplastin Time 22.5 sec (22.0-30.0); Prothrombin Time 9.9 sec (10.0-12.5)
--- NOTE | 2024-02-20 18:15 | P.CON ---
Consult Note - . 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 This is a very large tumor. I had seen him originally this and referred to Dr. Francisco and he performed awake tracheostomy laryngoscopy with biopsy-. this was about 8 days ago. He was hospitalized until his first trach tube change and was discharged. He has upcoming radiotherapy and chemotherapy appointments next week. He has been doing well at home with his tracheostomy tube however his came home today and this was out and she brought him in for evaluation. He has been stable overall. Multiple attempts to replace this by the ER staff respiratory and anesthesiologist was stable. Again he has been stable throughout with 93% saturation. Past medical history past surgical history as aboveotherwise noncontributory Current medications and social history are on his chart already Physical exam elderly white male in no acute distress. His tracheostomy tube is not in place protruding approximate 1 cm still. His saturations are good. 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 Neck exam again shows the tracheostomy tube still displaced. This was removed. The tract is still maturing with granulation but the tracheostomy itself and cartilage rings could be visualized after suctioning. The tracheostomy tube a #6 was able to be placed successfully and secured. The patient had no respiratory distress. He did have some bleeding initially which cleared with suctioning time approximate 30 minutes. Tracheostomy tube placement was confirmed with flexible tracheoscopy with flexible laryngoscope. Assessment laryngeal cancer with recent tracheostomy tube which was displaced and replaced. Plan patient is stable and will be able to be discharged home. The importance of the security of the tracheostomy tube was garnered to the patient and his who already understands this. He will keep his appointments as scheduled next week -if there are questions or concerns please feel free to contact me-
[2024-02-20 18:37] LABS: AST 82 U/L (17-59); Alkaline Phosphatase 55 U/L (38-126); Blood Urea Nitrogen 165 mg/dL (9-20); Potassium 6.3 mmol/L (3.5-5.1)
[2024-02-20] MEDS: TRANEXAMIC ACID 1,000 MG/10 ML VIAL INHALATION ONE (18:43)
[2024-02-20 19:33] VITALS: RESP 20
[2024-02-20 19:45] VITALS: BP 117/54; PULSE 96
--- NOTE | 2024-02-20 20:14 | ED ---
General Adult HPI - General Chief complaint: Recheck/Abnormal Lab/Rx Stated complaint: trach tube comp Time Seen by Provider: 02/20/24 15:30 Source: EMS Mode of arrival: EMS Limitations: no limitations - History of Present Illness Initial comments: 88-year-old male who presents emergency department with dislodged trach. is at bedside and helps provide the history. States that she had a left to program some errands. When she came home she found the patient's trach to be in a different location. It was not sitting flush with the skin. Patient has been coughing so hard that she suspects that he dislodged it with coughing. Trach was placed on the eighth by Dr. Munoz at [facility]. The trach dislodged while in the hospital and had to be replaced. The patient does wear 2 L trach collar all the time. He presents with normal oxygen saturations no increased work of breathing. He has not had any bleeding from the site. No reported fevers. No other alleviating, precipitating or modifying factors - Related Data Home Medications Medication Instructions Recorded Confirmed carvediloL [Coreg*] 12.5 mg PEG/G-TUBE BID 08/25/15 02/20/24 allopurinoL [Zyloprim] 300 mg PEG/G-TUBE DAILY 09/12/17 02/20/24 Atorvastatin [Lipitor] 40 mg PEG/G-TUBE HS 12/28/20 02/20/24 Gabapentin [Neurontin] 300 mg PEG/G-TUBE TID 12/28/20 02/20/24 HYDROcodone/APAP 10-325MG [[place] 1 tab PEG/G-TUBE QID 12/28/20 02/20/24 10-325] Levothyroxine Sodium [Synthroid] 50 mcg PEG/G-TUBE DAILY 12/28/20 02/20/24 Albuterol Sulfate [Ventolin HFA] 1 - 2 puff INHALATION RT-Q6H PRN 08/26/23 02/20/24 Alpha Lipoic Acid 200 mg PEG/G-TUBE DAILY 08/26/23 02/20/24 traZODone HCL 150 mg PEG/G-TUBE HS 08/26/23 02/20/24 Ipratropium-Albuterol Nebulize 3 ml INHALATION RT-QID 02/20/24 02/20/24 [Duoneb 0.5 mg-3 mg/3 ml Soln] Scopolamine [Scopolamine 1 MG/72 1 patch TRANSDERM Q72H 02/20/24 02/20/24 HR patch] lisinopriL [Zestril] 10 mg PEG/G-TUBE DAILY 02/20/24 02/20/24 Previous Rx's Medication Instructions Recorded Codeine Phosphate/Guaifenesin 5 ml PO Q6H 3 Days #60 ml 02/20/24 [Codeine Phosphate/Guaifenesin 10-100 mg/5 ml] Allergies Allergy/AdvReac Type Severity Reaction Status Date / Time ondansetron [From Zofran] Allergy Rash/Hives Verified 02/20/24 20:21 ciprofloxacin [From Cipro] AdvReac Angioedema Verified 02/20/24 20:21 ciprofloxacin HCl AdvReac Angioedema Verified 02/20/24 20:21 [From Cipro] ragweed pollen AdvReac congestion Verified 02/20/24 20:21 warfarin sodium AdvReac Nausea & Verified 02/20/24 20:21 [From Coumadin] Vomiting Review of Systems ROS Statement: Those systems with pertinent positive or pertinent negative responses have been documented in the HPI. ROS Other: All systems not noted in ROS Statement are negative. 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 History of Any Multi-Drug Resistant Organisms: None Reported Past Surgical History: Heart Catheterization, Joint Replacement, Orthopedic Surgery, Prostate Surgery, Tonsillectomy Additional Past Surgical History / Comment(s): Bilateral hip replacements, bilateral knee replacements, left arm tricep repaired, heart catheterization X3, colonoscopy, prostatectomy, steroid injection to back, skin cancer removed, cauterization d/t right Epistaxis, REYMUNDO, Aortic Valve Replacement(TAVR) 09/04/23. Past Anesthesia/Blood Transfusion Reactions: Previous Problems w/ Anesthesia Additional Past Anesthesia/Blood Transfusion Reaction / Comment(s): Uncontrolled shaking after hip surgery-no problems since. Bleeding in throat after valve replacement, unsure if from REYMUNDO or tube used for surgery. Past Psychological History: No Psychological Hx Reported Smoking Status: Former smoker - Past Family History Sister(s) Family Medical History: Cancer Additional Family Medical History / Comment(s): Breast cancer. Son(s) Family Medical History: Cancer Additional Family Medical History / Comment(s): Bladder cancer. General Exam Limitations: physical limitation General appearance: alert, anxious Head exam: Present: atraumatic, normocephalic, normal inspection Eye exam: Present: normal appearance, PERRL, EOMI. Absent: scleral icterus, conjunctival injection, periorbital swelling ENT exam: Present: normal exam, mucous membranes moist Neck exam: Present: other (Stoma visible with trach externalized 2 cm. There is some bright red-tinged blood surrounding the trach opening) Respiratory exam: Present: normal lung sounds bilaterally. Absent: respiratory distress, wheezes, rales, rhonchi, stridor Cardiovascular Exam: Present: regular rate, normal rhythm, normal heart sounds. Absent: systolic murmur, diastolic murmur, rubs, gallop, clicks Psychiatric exam: Present: anxious Course Vital Signs 02/20/24 02/20/24 02/20/24 15:28 15:40 16:30 Temperature 98.0 F Pulse Rate 81 90 Respiratory 21 22 18 Rate Blood Pressure 133/61 156/66 O2 Sat by Pulse 100 94 L Oximetry Fraction of Inspired Oxygen (FIO2) 02/20/24 02/20/24 02/20/24 17:00 18:50 18:54 Temperature Pulse Rate 89 96 Respiratory 20 Rate Blood Pressure 120/61 O2 Sat by Pulse 92 L Oximetry Fraction of 28 Inspired Oxygen (FIO2) 02/20/24 02/20/24 19:04 19:45 Temperature Pulse Rate 92 96 Respiratory Rate Blood Pressure 117/54 O2 Sat by Pulse 94 L Oximetry Fraction of Inspired Oxygen (FIO2) Medical Decision Making - Medical Decision Making Was pt. sent in by a medical professional or institution (, PA, CATEGORY SPECIALIST, urgent care, hospital, or assisted...) When possible be specific @ -No Did you speak to anyone other than the patient for history (EMS, parent, family, police, friend...)? What history was obtained from this source @ -Spoke with for history Did you review nursing and triage notes (agree or disagree)? Why? @ -I reviewed and agree with nursing and triage notes Were old charts reviewed (outside hosp., previous admission, EMS record, old EKG, old radiological studies, urgent care reports/EKG's, assisted records)? Report findings @ -No old charts were reviewed Differential Diagnosis (chest pain, altered mental status, abdominal pain women, abdominal pain men, vaginal bleeding, weakness, fever, dyspnea, syncope, headache, dizziness, GI bleed, back pain, seizure, CVA, palpatations, mental health, musculoskeletal)? @ -Trach dislodgment, mass effect from cancer, intentional removal EKG interpreted by me (3pts min.). @ -Not done X-rays interpreted by me (1pt min.). @ -Yes and demonstrates the cannulas projecting over the trachea CT interpreted by me (1pt min.). @ -None done U/S interpreted by me (1pt. min.). @ -None done What testing was considered but not performed or refused? (CT, X-rays, U/S, labs)? Why? @ -None What meds were considered but not given or refused? Why? @ -None Did you discuss the management of the patient with other professionals (professionals i.e. , PA, CATEGORY SPECIALIST, lab, RT, psych nurse, social services designee, tamping machine operator road forms, teacher, chief operations officer, case mgr)? Give summary @ -Spoke with Dr. Aldrich, the anesthesiologist who does present to the emergency department and performed fiberoptic scope of the patient. I then spoke with Dr. Felix who does present to the emergency department also and is the one that fixes the position of the trach Was smoking cessation discussed for >3mins.? @ -No Was critical care preformed (if so, how long)? @ -Yes, 35 minutes for management of upper airway emergency. Patient had trach dislodgment with significant bleeding Were there social determinants of health that impacted care today? How? (Homelessness, low income, unemployed, alcoholism, drug addiction, transportation, low edu. Level, literacy, decrease access to med. care, skilled nursing, rehab)? @ -No Was there de-escalation of care discussed even if they declined (Discuss DNR or withdrawal of care, Hospice)? DNR status @ -No What co-morbidities impacted this encounter? (DM, HTN, Smoking, COPD, CAD, Cancer, CVA, ARF, Chemo, Hep., AIDS, mental health diagnosis, sleep apnea, morbid obesity)? @ -Larynx cancer Was patient admitted / discharged? Hospital course, mention meds given and rou te, prescriptions, significant lab abnormalities, going to OR and other pertinent info. @ -Upon arrival patient seen and evaluated in room 25. Patient's trach is partially externalized. We do attempt to replace the patient's trach however we are met with resistance. The patient is then moved into trauma 1. I did speak with Dr. Aldrich. He does present to the emergency department and performed fiberoptic scope of the patient. It is identified that the trach is getting caught on the inferior edge of the trachea. I then spoke with Dr. Fulton who does present to the emergency department. He is able to get the trach back in appropriate position. Patient does have some significant bleeding from the area and therefore I did give the patient nebulized TXA. After this the patient has stopped coughing. He has no further bleeding. He was given a dose of cough syrup in his PEG tube. At this time patient will be discharged home as this is his request. Patient is refusing admission for observation. Patient will be discharged home. Needs to follow-up with his ENT in 2 to 4 days and return for any new or worsening symptoms Undiagnosed new problem with uncertain prognosis? @ -No Drug Therapy requiring intensive monitoring for toxicity (Heparin, Nitro, Insulin, Cardizem)? @ -No Were any procedures done? @ -No Diagnosis/symptom? @ -Acute trach dislodgment Acute, or Chronic, or Acute on Chronic? @ -Acute Uncomplicated (without systemic symptoms) or Complicated (systemic symptoms)? @Complicated Side effects of treatment? @ -No Exacerbation, Progression, or Severe Exacerbation? @ -No Poses a threat to life or bodily function? How? (Chest pain, USA, VT, pneumonia, PE, COPD, DKA, ARF, appy, cholecystitis, CVA, Diverticulitis, Homicidal, Suicidal, threat to staff... and all critical care pts) @ -Yes as patient did have loss of his airway - Lab Data Result diagrams: 02/20/24 16:47 02/20/24 16:47 Lab Results 02/20/24 02/20/24 02/20/24 Range/Units 16:47 16:47 16:47 WBC 7.8 (3.8-10.6) k/uL RBC 3.26 L (4.30-5.90) m/uL Hgb 9.9 L (13.0-17.5) gm/dL Hct 30.0 L (39.0-53.0) % MCV 92.0 (80.0-100.0) fL MCH 30.2 (25.0-35.0) pg MCHC 32.9 (31.0-37.0) g/dL RDW 15.8 H (11.5-15.5) % Plt Count 233 (150-450) k/uL MPV 10.7 Neutrophils % 82 % Lymphocytes % 6 % Monocytes % 7 % Eosinophils % 2 % Basophils % 0 % Neutrophils # 6.4 (1.3-7.7) k/uL Lymphocytes # 0.5 L (1.0-4.8) k/uL Monocytes # 0.6 (0-1.0) k/uL Eosinophils # 0.2 (0-0.7) k/uL Basophils # 0.0 (0-0.2) k/uL PT 9.9 L (10.0-12.5) sec INR 0.9 (<1.2) APTT 22.5 (22.0-30.0) sec Sodium 139 (137-145) mmol/L Potassium 6.3 H* (3.5-5.1) mmol/L Chloride 102 (98-107) mmol/L Carbon Dioxide 29 (22-30) mmol/L Anion Gap 8 mmol/L BUN 165 H* (9-20) mg/dL Creatinine 2.14 H (0.66-1.25) mg/dL Est GFR (CKD-EPI)AfAm 31 (>60 ml/min/1.73 sqM) Est GFR (CKD-EPI)NonAf 27 (>60 ml/min/1.73 sqM) Glucose 135 H (74-99) mg/dL Calcium 8.6 (8.4-10.2) mg/dL Total Bilirubin 0.8 (0.2-1.3) mg/dL AST 82 H (17-59) U/L ALT 42 (4-49) U/L Alkaline Phosphatase 55 (38-126) U/L Total Protein 6.9 (6.3-8.2) g/dL Albumin 3.4 L (3.5-5.0) g/dL Disposition Clinical Impression: Complication of tracheostomy tube Disposition: HOME SELF-CARE Condition: Stable Instructions (If sedation given, give patient instructions): Tracheostomy Care (ED) Additional Instructions: Use the cough suppressant every 6 hours as needed. Follow-up with your ENT and return for any new or worsening symptoms Prescriptions: Codeine Phosphate/Guaifenesin [Codeine Phosphate/Guaifenesin 10-100 mg/5 ml] 5 ml PO Q6H 3 Days #60 ml Is patient prescribed a controlled substance at d/c from ED?: Yes When asked, does pt state using other controlled substances?: No If prescribed controlled substance>3 days was MAPS reviewed?: Prescribed <3 Days Referrals: Chandu Bryant MD [Primary Care Provider] - 1-2 days Time of Disposition: 20:13
[2024-02-20] MEDS: guaiFENesin-Coden 100-10MG/5ML 10 ML CUP PO STA (20:30)
== END 2024-02-20 20:57 | disposition home or self-care (01) ==
LOC: EC 15:23
CPT/HCPCS: 36415; 71045; 80053; 85025; 85610; 85730; 94640; 96374; 99283

== ENCOUNTER → 2024-02-27 | Outpatient (CLI) | payer MEDICARE ==
--- NOTE | 2024-02-28 16:04 | PE ---
EXAMINATION TYPE: PET CT fusion skull to thigh DATE OF EXAM: 02/27/2024 COMPARISON: CT soft tissue neck 10- Prior PET/CT: None at this location HISTORY: Head and neck cancer TECHNIQUE: Following the intravenous administration of 13.3 mCi of F-18 FDG, whole body images are p erformed from the skull base to the midthigh. Images are reviewed on the computer in the coronal, ax ial, and sagittal planes. Reconstructed rotating images are created on independent workstation and r eviewed on the computer. A localization and attenuation correction CT is performed in conjunction w ith the PET scan. DLP: 732.24 mGycm SCAN: Subsequent Blood glucose: 1:30 mg/dL Average Mediastinum SUV: Average Liver SUV: FINDINGS: Head and neck: There is focal uptake within the left posterior lateral vocal cord level. SUV 25.7, im age 50 head and neck scanned. There is a small focus of radiotracer within a small lymph node within the left lateral neck base, image 51, SUV 5.59 supraclavicular lymph node is present image 58 measuri ng 10.14 SUV. NECK: Uptake within the left posterior lateral larynx and within 2 lymph nodes left neck and supracl avicular region is also present on the whole body imaging. No additional neck uptake. THORAX: No suspicious intrathoracic uptake. ABDOMEN: No suspicious intra-abdominal uptake PELVIS: Some soft tissue uptake is in the right inferior medial gluteal region, image 218, SUV 6.37. Consider infection and soft tissue metastasis. There is somewhat symmetric uptake and muscular activi ty be within the differential. OSSEOUS STRUCTURES: There may be some subtle uptake within osseous structures, example thoracic verte bral body image 68, SUV 4.02. Some uptake may be noted within the right humerus, image 94, SUV 2.63. Uptake is within the lower thoracic region vertebral bodies, beginning image 98, image 107, image 115 some mild diffuse uptake may be within the anterior ribs, example image 121 anterior lateral ribs bi laterally. LOCALIZATION CT: There is a tracheostomy tube present. Prior aortic valve repair is evident and may b e some left hydronephrosis PEG tube is present COMPARISON: Uptake within the posterior lateral larynx correlates with the mass finding on CT of 01/28 the enlarged lymph node has abnormal uptake in the left neck IMPRESSION: 1. 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 2. Other appeared to be a adjacent lymph node with abnormal uptake compatible with metastasis. 3. Additional supraclavicular small lymph node is also present suspicious for metastasis. 4. Some mild diffuse uptake may be within osseous structures. Osseous metastasis is not excluded. Thi s would include right humerus, vertebral bodies, and ribs discussed above. [facility], , 02/28/2024 4:01 PM
== END | disposition home or self-care (01) ==
LOC: RADPETMAIN 12:02
PROVIDERS: ATTEND Internal Medicine Hematology & Oncology
DX: C76.0 Malignant neoplasm of head, face and neck (principal); R93.7 Abnormal findings on diagnostic imaging of other parts of musculoskeletal system
CPT/HCPCS: 78815; A9552

== ENCOUNTER 2024-03-14 09:33 | Observation (INO) | payer MEDICARE ==
--- NOTE | 2024-03-14 09:58 | ED ---
General Adult HPI - General Chief complaint: Upper Respiratory Infection Stated complaint: bleeding from trach/choking Time Seen by Provider: 03/14/24 09:40 Source: patient, family, RN notes reviewed, old records reviewed Mode of arrival: wheelchair Limitations: language barrier, physical limitation - History of Present Illness Initial comments: This is an 88-year-old male who presents to the emergency department complaining that a lot of blood is coming up out of his trach and he states he swallowing Braaksma that is coming out of his J-tube. Patient states this happened a little while ago and he came in and Dr. Felix had to put the trach back when he became dislodged. Patient states at that time he continued to bleed so they gave him something to inhale that stopped the bleeding. Patient states since then it only bled very minimally occasionally but since last night has been bleeding quite a bit and it has been pretty much nonstop. Patient states he is not have any difficulty breathing unless the trach gets clogged with blood. Pa tient [place] any chest pain or palpitations. Patient Nu[place] any blood thinners. - Related Data Home Medications Medication Instructions Recorded Confirmed carvediloL [Coreg*] 12.5 mg PEG/G-TUBE BID 08/25/15 02/20/24 allopurinoL [Zyloprim] 300 mg PEG/G-TUBE DAILY 09/12/17 02/20/24 Atorvastatin [Lipitor] 40 mg PEG/G-TUBE HS 12/28/20 02/20/24 Gabapentin [Neurontin] 300 mg PEG/G-TUBE TID 12/28/20 02/20/24 HYDROcodone/APAP 10-325MG [[place] 1 tab PEG/G-TUBE QID 12/28/20 02/20/24 10-325] Levothyroxine Sodium [Synthroid] 50 mcg PEG/G-TUBE DAILY 12/28/20 02/20/24 Albuterol Sulfate [Ventolin HFA] 1 - 2 puff INHALATION RT-Q6H PRN 08/26/23 02/20/24 Alpha Lipoic Acid 200 mg PEG/G-TUBE DAILY 08/26/23 02/20/24 traZODone HCL 150 mg PEG/G-TUBE HS 08/26/23 02/20/24 Ipratropium-Albuterol Nebulize 3 ml INHALATION RT-QID 02/20/24 02/20/24 [Duoneb 0.5 mg-3 mg/3 ml Soln] Scopolamine [Scopolamine 1 MG/72 1 patch TRANSDERM Q72H 02/20/24 02/20/24 HR patch] lisinopriL [Zestril] 10 mg PEG/G-TUBE DAILY 02/20/24 02/20/24 Previous Rx's Medication Instructions Recorded Codeine Phosphate/Guaifenesin 5 ml PO Q6H 3 Days #60 ml 02/20/24 [Codeine Phosphate/Guaifenesin 10-100 mg/5 ml] Allergies Allergy/AdvReac Type Severity Reaction Status Date / Time ondansetron [From Zofran] Allergy Rash/Hives Verified 02/20/24 20:21 ciprofloxacin [From Cipro] AdvReac Angioedema Verified 02/20/24 20:21 ciprofloxacin HCl AdvReac Angioedema Verified 02/20/24 20:21 [From Cipro] ragweed pollen AdvReac congestion Verified 02/20/24 20:21 warfarin sodium AdvReac Nausea & Verified 02/20/24 20:21 [From Coumadin] Vomiting Review of Systems ROS Statement: Those systems with pertinent positive or pertinent negative responses have been documented in the HPI. ROS Other: All systems not noted in ROS Statement are negative. 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 History of Any Multi-Drug Resistant Organisms: None Reported Past Surgical History: Heart Catheterization, Joint Replacement, Orthopedic Surgery, Prostate Surgery, Tonsillectomy Additional Past Surgical History / Comment(s): Bilateral hip replacements, bilateral knee replacements, left arm tricep repaired, heart catheterization X3, colonoscopy, prostatectomy, steroid injection to back, skin cancer removed, cauterization d/t right Epistaxis, REYMUNDO, Aortic Valve Replacement(TAVR) 09/04/23. Past Anesthesia/Blood Transfusion Reactions: Previous Problems w/ Anesthesia Additional Past Anesthesia/Blood Transfusion Reaction / Comment(s): Uncontrolled shaking after hip surgery-no problems since. Bleeding in throat after valve replacement, unsure if from REYMUNDO or tube used for surgery. Past Psychological History: No Psychological Hx Reported Smoking Status: Former smoker Past Alcohol Use History: None Reported Past Drug Use History: None Reported - Past Family History Sister(s) Family Medical History: Cancer Additional Family Medical History / Comment(s): Breast cancer. Son(s) Family Medical History: Cancer Additional Family Medical History / Comment(s): Bladder cancer. General Exam - General Exam Comments Initial Comments: GENERAL: Patient is well-developed and well-nourished. Patient is nontoxic and well- hydrated and is in mild distress. ENT: Neck is soft and supple. No significant lymphadenopathy is noted. Oropharynx is clear. Moist mucous membranes. Neck has full range of motion without eliciting any pain. Patient has bright red blood coming from his trach EYES: The sclera were anicteric and conjunctiva were pink and moist. Extraocular movements were intact and pupils were equal round and reactive to light. E yelids were unremarkable. PULMONARY: Unlabored respirations. Good breath sounds bilaterally. No audible rales rhonchi or wheezing was noted. CARDIOVASCULAR: There is a regular rate and rhythm without any murmurs gallops or rubs. ABDOMEN: Soft and nontender with normal bowel sounds. SKIN: Skin is clear with no lesions or rashes and otherwise unremarkable. NEUROLOGIC: Patient is alert and oriented x3. Cranial nerves II through XII are grossly intact. Motor and sensory are also intact. Normal speech, volume and content. Symmetrical smile. MUSCULOSKELETAL: Normal extremities with adequate strength and full range of motion. LYMPHATICS: No significant lymphadenopathy is noted PSYCHIATRIC: Normal psychiatric evaluation. Limitations: language barrier, physical limitation Course Vital Signs 03/14/24 03/14/24 03/14/24 09:34 10:27 10:51 Temperature 97.8 F Pulse Rate 91 84 84 Respiratory 18 18 20 Rate Blood Pressure 119/61 110/60 O2 Sat by Pulse 94 L 94 L Oximetry 03/14/24 03/14/24 11:05 12:07 Temperature Pulse Rate 84 89 Respiratory 20 18 Rate Blood Pressure 125/65 O2 Sat by Pulse 95 Oximetry Medical Decision Making - Medical Decision Making EKG is interpreted by myself but EKG shows sinus rhythm at 85 bpm MD 174 QRS is 81 QT interval 341 QTc is 384. Patient's EKG shows no ST segment elevation Was pt. sent in by a medical professional or institution (MIKE Bhatt, LEASE ADMINISTRATION SUPERVISOR, urgent care, hospital, or assisted...) When possible be specific @ -No Did you speak to anyone other than the patient for history (EMS, parent, family, police, friend...)? What history was obtained from this source @ -No Did you review nursing and triage notes (agree or disagree)? Why? @ -I reviewed and agree with nursing and triage notes Were old charts reviewed (outside hosp., previous admission, EMS record, old EKG, old radiological studies, urgent care reports/EKG's, assisted records)? Report findings @ -No old charts were reviewed Differential Diagnosis? @ -Pneumonia, lung tumor, bleeding from trach, this is not an all-inclusive list EKG interpreted by me (3pts min.). @ -As above X-rays interpreted by me (1pt min.). @ -None done CT interpreted by me (1pt min.). @ -None done U/S interpreted by me (1pt. min.). @ -None done What testing was considered but not performed or refused? (CT, X-rays, U/S, labs)? Why? @ -None What meds were considered but not given or refused? Why? @ -None Did you discuss the management of the patient with other professionals (professionals i.e. MIKE Bhatt, LEASE ADMINISTRATION SUPERVISOR, lab, RT, psych nurse, social service agency director, correctional program officer, teacher, public information officer, case finishing machine adjuster)? Give summary @ -I spoke with [facility] and they agreed to admit the patient admit the patient wrote admitting orders Was smoking cessation discussed for >3mins.? @ -No Was critical care preformed (if so, how long)? @ -No Were there social determinants of health that impacted care today? How? (Homelessness, low income, unemployed, alcoholism, drug addiction, transportation, low edu. Level, literacy, decrease access to med. care, prison, rehab)? @ -No Was there de-escalation of care discussed even if they declined (Discuss DNR or withdrawal of care, Hospice)? DNR status @ -No What co-morbidities impacted this encounter? (DM, HTN, Smoking, COPD, CAD, Cancer, CVA, ARF, Chemo, Hep., AIDS, mental health diagnosis, sleep apnea, morbid obesity)? @ -None Was patient admitted / discharged? Hospital course, mention meds given and route, prescriptions, significant lab abnormalities, going to OR and other pertinent info. @ -Patient received TXA inhalation and the bleeding stopped immediately. Patient's potassium was elevated so patient will get fluids and Lokelma. Patient will be [facility] Undiagnosed new problem with uncertain prognosis? @ -No Drug Therapy requiring intensive monitoring for toxicity (Heparin, Nitro, Insulin, Cardizem)? @ -No Were any procedures done? @ -No Diagnosis/symptom? @ -Tracheostomy bleeding Acute, or Chronic, or Acute on Chronic? @ -Acute Uncomplicated (without systemic symptoms) or Complicated (systemic symptoms)? @ -Complicated Side effects of treatment? @ -No Exacerbation, Progression, or Severe Exacerbation? @ -No Poses a threat to life or bodily function? How? (Chest pain, USA, AR, pneumonia, PE, COPD, DKA, ARF, appy, cholecystitis, CVA, Diverticulitis, Homicidal, Suicidal, threat to staff... and all critical care pts) @ -No Diagnosis/symptom? @ -Hyperkalemia Acute, or Chronic, or Acute on Chronic? @ -Acute Uncomplicated (without systemic symptoms) or Complicated (systemic symptoms)? @ -Complicated Side effects of treatment? @ -None Exacerbation, Progression, or Severe Exacerbation] @ -No Poses a threat to life or bodily function? @ -Yes this can lead to arrhythmias and - Lab Data Result diagrams: 03/14/24 10:00 03/14/24 11:29 Lab Results 03/14/24 03/14/24 03/14/24 Range/Units 10:00 10:00 10:00 WBC 8.3 (3.8-10.6) k/uL RBC 3.28 L (4.30-5.90) m/uL Hgb 10.0 L (13.0-17.5) gm/dL Hct 30.3 L (39.0-53.0) % MCV 92.3 (80.0-100.0) fL MCH 30.5 (25.0-35.0) pg MCHC 33.1 (31.0-37.0) g/dL RDW 15.7 H (11.5-15.5) % Plt Count 230 (150-450) k/uL MPV 9.8 Neutrophils % 80 % Lymphocytes % 9 % Monocytes % 6 % Eosinophils % 3 % Basophils % 0 % Neutrophils # 6.7 (1.3-7.7) k/uL Lymphocytes # 0.7 L (1.0-4.8) k/uL Monocytes # 0.5 (0-1.0) k/uL Eosinophils # 0.2 (0-0.7) k/uL Basophils # 0.0 (0-0.2) k/uL PT 9.6 L (10.0-12.5) sec INR 0.8 (<1.2) APTT 23.7 (22.0-30.0) sec Sodium 131 L (137-145) mmol/L Potassium 5.7 H (3.5-5.1) mmol/L Chloride 98 (98-107) mmol/L Carbon Dioxide 25 (22-30) mmol/L Anion Gap 8 mmol/L BUN 63 H (9-20) mg/dL Creatinine 1.12 (0.66-1.25) mg/dL Est GFR (CKD-EPI)AfAm 67 (>60 ml/min/1.73 sqM) Est GFR (CKD-EPI)NonAf 58 (>60 ml/min/1.73 sqM) Glucose 119 H (74-99) mg/dL Calcium 9.4 (8.4-10.2) mg/dL Magnesium 2.3 (1.6-2.3) mg/dL Total Bilirubin 0.5 (0.2-1.3) mg/dL AST 27 (17-59) U/L ALT 25 (4-49) U/L Alkaline Phosphatase 90 (38-126) U/L Total Protein 7.5 (6.3-8.2) g/dL Albumin 3.6 (3.5-5.0) g/dL 03/14/24 Range/Units 11:29 WBC (3.8-10.6) k/uL RBC (4.30-5.90) m/uL Hgb (13.0-17.5) gm/dL Hct (39.0-53.0) % MCV (80.0-100.0) fL MCH (25.0-35.0) pg MCHC (31.0-37.0) g/dL RDW (11.5-15.5) % Plt Count (150-450) k/uL MPV Neutrophils % % Lymphocytes % % Monocytes % % Eosinophils % % Basophils % % Neutrophils # (1.3-7.7) k/uL Lymphocytes # (1.0-4.8) k/uL Monocytes # (0-1.0) k/uL Eosinophils # (0-0.7) k/uL Basophils # (0-0.2) k/uL PT (10.0-12.5) sec INR (<1.2) APTT (22.0-30.0) sec Sodium (137-145) mmol/L Potassium 6.0 H (3.5-5.1) mmol/L Chloride (98-107) mmol/L Carbon Dioxide (22-30) mmol/L Anion Gap mmol/L BUN (9-20) mg/dL Creatinine (0.66-1.25) mg/dL Est GFR (CKD-EPI)AfAm (>60 ml/min/1.73 sqM) Est GFR (CKD-EPI)NonAf (>60 ml/min/1.73 sqM) Glucose (74-99) mg/dL Calcium (8.4-10.2) mg/dL Magnesium (1.6-2.3) mg/dL Total Bilirubin (0.2-1.3) mg/dL AST (17-59) U/L ALT (4-49) U/L Alkaline Phosphatase (38-126) U/L Total Protein (6.3-8.2) g/dL Albumin (3.5-5.0) g/dL Disposition Clinical Impression: Tracheostomy hemorrhage, Hyperkalemia Disposition: ADMITTED IP TO THIS [facility] Referrals: Chandu Bryant MD [Primary Care Provider] - 1-2 days Time of Disposition: 12:22
[2024-03-14 10:12] LABS: Basophils % (A) 0 %; Eosinophils # (A) 0.2 k/uL (0-0.7); Eosinophils % (A) 3 %; HCT 30.3 % (39.0-53.0); Lymphocytes # (A) 0.7 k/uL (1.0-4.8); Lymphocytes % (A) 9 %; MCH 30.5 pg (25.0-35.0); MCHC 33.1 g/dL (31.0-37.0); MCV 92.3 fL (80.0-100.0); Mean Platelet Volume 9.8; Monocytes # (A) 0.5 k/uL (0-1.0); Monocytes % (A) 6 %; Neutrophils # (A) 6.7 k/uL (1.3-7.7); Neutrophils % (A) 80 %; Platelet Count 230 k/uL (150-450); RBC 3.28 m/uL (4.30-5.90); RDW 15.7 % (11.5-15.5); WBC 8.3 k/uL (3.8-10.6)
[2024-03-14 10:23] LABS: INR 0.8 (<1.2); Partial Thromboplastin Time 23.7 sec (22.0-30.0); Prothrombin Time 9.6 sec (10.0-12.5)
[2024-03-14 10:24] LABS: ALT 25 U/L (4-49); AST 27 U/L (17-59); African American GFR (CKD) 67 (>60 ml/min/1.73 sqM); Albumin 3.6 g/dL (3.5-5.0); Alkaline Phosphatase 90 U/L (38-126); Anion Gap 8 mmol/L; Blood Urea Nitrogen 63 mg/dL (9-20); Calcium 9.4 mg/dL (8.4-10.2); Carbon Dioxide 25 mmol/L (22-30); Chloride 98 mmol/L (98-107); Glucose 119 mg/dL (74-99); Magnesium 2.3 mg/dL (1.6-2.3); Non-African American GFR(CKD) 58 (>60 ml/min/1.73 sqM); Potassium 5.7 mmol/L (3.5-5.1); Sodium 131 mmol/L (137-145); Total Bilirubin 0.5 mg/dL (0.2-1.3); Total Protein 7.5 g/dL (6.3-8.2)
[2024-03-14] MEDS: TRANEXAMIC ACID 1,000 MG/10 ML VIAL INHALATION STA (10:46)
--- NOTE | 2024-03-14 10:58 | XR ---
EXAMINATION TYPE: XR chest 1V portable DATE OF EXAM: 03/14/2024 10:17 AM COMPARISON: 02/20/2024 CLINICAL INDICATION: Male, 88 years old with history of chest pain, TECHNIQUE: XR chest 1V portable view(s) obtained. FINDINGS: The heart size is normal. The pulmonary vasculature is normal. There is some mild chronic changes within the lung reed. No suspicious infiltrates evident. Tracheostomy tube is in the midline. IMPRESSION: 1. No acute pulmonary process. Mild chronic changes present. Tracheostomy tube is in the midline [facility] Mathew Bueno, , 03/14/2024 10:56 AM
[2024-03-14] MEDS: SODIUM CHLORIDE 0.9% 500 ML IV ONE (11:33)
[2024-03-14] MEDS: SODIUM CHLORIDE 0.9% 1,000 ML IV ONE ×2 (12:22→12:52)
[2024-03-14] MEDS: SODIUM ZIRCONIUM CYCLOSILICATE 10 GM PACKET PO ONE (12:27)
[2024-03-14] MEDS ORDERED: ALBUTEROL NEBULIZED 2.5 MG/3 ML INHALATION PRN (13:28)
[2024-03-14] MEDS: IPRATROPIUM-ALBUTEROL 3 ML NEB INHALATION SCH (15:41)
[2024-03-14] MEDS: allopurinoL 300 MG TAB PO SCH (17:21)
[2024-03-14] MEDS: GABAPENTIN 300 MG CAP PEG/G-TUBE SCH (17:21)
[2024-03-14] MEDS: carvediloL 12.5 MG TAB PEG/G-TUBE SCH (17:22)
[2024-03-14] MEDS: HYDROcodone/APAP 10-325MG 1 EACH TAB PEG/G-TUBE SCH (17:22)
[2024-03-14] MEDS: TRANEXAMIC ACID 1,000 MG/10 ML VIAL INHALATION PRN (19:32)
[2024-03-14 21:37] LABS: Glucose,Whole Blood 151 mg/dL (70-110)
[2024-03-14] MEDS: traZODone HCL 50 MG TAB PEG/G-TUBE SCH (22:03)
[2024-03-14] MEDS: ATORVASTATIN 40 MG TAB PEG/G-TUBE SCH (22:03)
[2024-03-14] MEDS: guaiFENesin-Coden 100-10MG/5ML 10 ML CUP PEG/G-TUBE PRN (23:39)
--- NOTE | 2024-03-15 01:33 | HP ---
HISTORY AND PHYSICAL CHIEF COMPLAINT: Bleeding from tracheostomy, hyperkalemia. HISTORY OF PRESENT ILLNESS: This is an 88-year-old gentleman with a past medical history of multiple medical problems including COPD, CHF, and tracheostomy. The patient had a tracheostomy dislodgement a few weeks ago and was put back by Dr. Felix from ENT. Currently, the patient is complaining of some bleeding. The patient got some tranexamic acid nebulization, which stopped the bleeding. The patient also had hyperkalemia, being closely monitored. There is no history of any fever, rigors, or chills at this time. PAST MEDICAL HISTORY: Reviewed include COPD, CHF. Rest of the medications and history is noted. ALLERGIES: Zofran. FAMILY HISTORY: History of breast cancer. SOCIAL HISTORY: Previous history of smoking. REVIEW OF SYSTEMS: Could not be taken because the patient has change in mental status. PHYSICAL EXAMINATION: VITAL SIGNS: Pulse is 101, blood pressure 120/50, respirations 18. HEENT: Conjunctivae normal. NECK: Tracheostomy with some bleeding. CARDIOVASCULAR: S1, S2. RESPIRATIONS: A few scattered rhonchi. ABDOMEN: Soft. NERVOUS SYSTEM: Nonfocal. LABORATORY DATA: Potassium 5.76. Other labs are noted. ASSESSMENT: 1. Bleeding from the tracheostomy site. 2. Severe hyperkalemia. 3. History of squamous cell carcinoma of the larynx. 4. History of congestive heart failure, chronic obstructive pulmonary disease. 5. Diabetes mellitus, type 2. 6. Hyperlipidemia. 7. The patient has a history of TAVR. 8. Multiple complex medical issues. RECOMMENDATIONS AND DISCUSSION: In this 88-year-old gentleman, who presented with multiple complex medical issues, we will monitor the patient closely. Continue the current medications. We will monitor potassium closely. Otherwise, tranexamic acid inhalation will be repeated. We will try to inform the ENT as well. Overall prognosis extremely guarded. Avoid antiplatelet agents at this time. PT, PTT, INR within normal limits. Guarded prognosis. Further recommendations to follow. Discussed with the patient and further recommendations to follow. MMODL / IJN: [id number] /
[2024-03-15 05:06] VITALS: TEMP 98.7
[2024-03-15 06:34] LABS: Glucose,Whole Blood 149 mg/dL (70-110)
[2024-03-15] MEDS: LEVOTHYROXINE 50 MCG TAB PEG/G-TUBE SCH (06:42)
[2024-03-15 06:58] LABS: Basophils % (A) 0 %; Eosinophils # (A) 0.1 k/uL (0-0.7); Eosinophils % (A) 2 %; HCT 29.9 % (39.0-53.0); HGB 9.4 gm/dL (13.0-17.5); Hypochromasia Slight; Lymphocytes # (A) 0.8 k/uL (1.0-4.8); Lymphocytes % (A) 11 %; MCH 29.9 pg (25.0-35.0); MCHC 31.6 g/dL (31.0-37.0); MCV 94.7 fL (80.0-100.0); Mean Platelet Volume 9.1; Monocytes # (A) 0.5 k/uL (0-1.0); Monocytes % (A) 7 %; Neutrophils # (A) 5.7 k/uL (1.3-7.7); Neutrophils % (A) 79 %; Platelet Count 218 k/uL (150-450); RBC 3.16 m/uL (4.30-5.90); RDW 15.8 % (11.5-15.5); WBC 7.2 k/uL (3.8-10.6)
[2024-03-15 07:16] LABS: African American GFR (CKD) 74 (>60 ml/min/1.73 sqM); Anion Gap 7 mmol/L; Blood Urea Nitrogen 51 mg/dL (9-20); Calcium 9.3 mg/dL (8.4-10.2); Carbon Dioxide 24 mmol/L (22-30); Chloride 104 mmol/L (98-107); Glucose 130 mg/dL (74-99); Non-African American GFR(CKD) 64 (>60 ml/min/1.73 sqM); Potassium 4.8 mmol/L (3.5-5.1); Sodium 135 mmol/L (137-145)
[2024-03-15] MEDS: NON FORMULARY DRUG (Alpha Lipoic Acid [Alpha Lipoic Acid] 50 MG Tablet) PEG/G-TUBE SCH (09:12)
[2024-03-15 09:18] VITALS: RESP 16
[2024-03-15 11:20] LABS: Glucose,Whole Blood 150 mg/dL (70-110)
--- NOTE | 2024-03-15 11:58 | P.GSCN ---
History of Present Illness Consult date: 03/15/24 Reason for Consult: Bleeding from tracheostomy site History of present illness: This is an 88-year-old male who had a tracheostomy placed recently at [facility]. Patient had tracheostomy formed on February 03. Patient was found to have a large tumor in his larynx. Patient has developed bleeding from the tracheostomy site for the last 48 hours. Patient was also seen by Dr. Bourne for placement of tracheostomy when he coughed out the tracheostomy about 2 weeks ago. Patient is c continues to have bleeding from his tracheostomy site. 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 Trach collar and peg tube placed in december History of Any Multi-Drug Resistant Organisms: None Reported Past Surgical History: Heart Catheterization, Joint Replacement, Orthopedic Surgery, Prostate Surgery, Tonsillectomy Additional Past Surgical History / Comment(s): Bilateral hip replacements, bilateral knee replacements, left arm tricep repaired, heart catheterization X3, colonoscopy, prostatectomy, steroid injection to back, skin cancer removed, c auterization d/t right Epistaxis, REYMUNDO, Aortic Valve Replacement(TAVR) 09/04/23. Past Anesthesia/Blood Transfusion Reactions: Previous Problems w/ Anesthesia Additional Past Anesthesia/Blood Transfusion Reaction / Comm: Uncontrolled shaking after hip surgery-no problems since. Bleeding in throat after valve replacement, unsure if from REYMUNDO or tube used for surgery. Past Psychological History: No Psychological Hx Reported Additional Psychological History / Comment(s): Spouse states "Mostly anxiety, n ot so much depression." Smoking Status: Former smoker Past Alcohol Use History: None Reported Additional Past Alcohol Use History / Comment(s): Smoking: started 1946, stopped 2004, less than 1/2 ppd. One glass of wine nightly. Past Drug Use History: None Reported - Past Family History Sister(s) Family Medical History: Cancer Additional Family Medical History / Comment(s): Breast cancer. Son(s) Family Medical History: Cancer Additional Family Medical History / Comment(s): Bladder cancer. Medications and Allergies Home Medications Medication Instructions Recorded Confirmed Type carvediloL [Coreg*] 12.5 mg PEG/G-TUBE BID 08/25/15 03/14/24 History allopurinoL [Zyloprim] 300 mg PEG/G-TUBE DAILY 09/12/17 03/14/24 History Atorvastatin [Lipitor] 40 mg PEG/G-TUBE HS 12/28/20 03/14/24 History Gabapentin [Neurontin] 300 mg PEG/G-TUBE TID 12/28/20 03/14/24 History HYDROcodone/APAP 10-325MG [[place] 1 tab PEG/G-TUBE QID 12/28/20 03/14/24 History 10-325] Levothyroxine Sodium [Synthroid] 50 mcg PEG/G-TUBE DAILY 12/28/20 03/14/24 History Albuterol Sulfate [Ventolin HFA] 1 - 2 puff INHALATION RT-Q6H PRN 08/26/23 03/14/24 History Alpha Lipoic Acid 200 mg PEG/G-TUBE DAILY 08/26/23 03/14/24 History traZODone HCL 150 mg PEG/G-TUBE HS 08/26/23 03/14/24 History Ipratropium-Albuterol Nebulize 3 ml INHALATION RT-QID 02/20/24 03/14/24 History [Duoneb 0.5 mg-3 mg/3 ml Soln] Codeine Phosphate/Guaifenesin 5 ml PEG/G-TUBE Q6H PRN 03/14/24 03/14/24 History [Codeine Phosphate/Guaifenesin 10-100 mg/5 ml] Allergies Allergy/AdvReac Type Severity Reaction Status Date / Time ondansetron [From Zofran] Allergy Rash/Hives Verified 02/20/24 20:21 ciprofloxacin [From Cipro] AdvReac Angioedema Verified 02/20/24 20:21 ciprofloxacin HCl AdvReac Angioedema Verified 02/20/24 20:21 [From Cipro] ragweed pollen AdvReac congestion Verified 02/20/24 20:21 warfarin sodium AdvReac Nausea & Verified 02/20/24 20:21 [From Coumadin] Vomiting Surgical - Exam Vital Signs Temp Pulse Resp BP Pulse Ox 97.8 F 91 18 119/61 94 L 03/14/24 09:34 03/14/24 09:34 03/14/24 09:34 03/14/24 09:34 03/14/24 09:34 - General no distress - Eyes PERRL - ENT Blood and sputum seen at tracheostomy site normal pinna - Cardiovascular Rhythm: regular - Abdomen Abdomen: soft, non tender Results - Labs 03/15/24 06:32 03/15/24 06:32 Abnormal Lab Results - Last 24 Hours (Table) 03/14/24 03/14/24 03/15/24 Range/Units 11:29 21:37 06:32 RBC 3.16 L (4.30-5.90) m/uL Hgb 9.4 L (13.0-17.5) gm/dL Hct 29.9 L (39.0-53.0) % RDW 15.8 H (11.5-15.5) % Lymphocytes # 0.8 L (1.0-4.8) k/uL Sodium (137-145) mmol/L Potassium 6.0 H (3.5-5.1) mmol/L BUN (9-20) mg/dL Glucose (74-99) mg/dL POC Glucose (mg/dL) 151 H (70-110) mg/dL 03/15/24 03/15/24 03/15/24 Range/Units 06:32 06:33 11:19 RBC (4.30-5.90) m/uL Hgb (13.0-17.5) gm/dL Hct (39.0-53.0) % RDW (11.5-15.5) % Lymphocytes # (1.0-4.8) k/uL Sodium 135 L (137-145) mmol/L Potassium (3.5-5.1) mmol/L BUN 51 H (9-20) mg/dL Glucose 130 H (74-99) mg/dL POC Glucose (mg/dL) 149 H 150 H (70-110) mg/dL Diabetes panel 03/14/24 03/14/24 03/15/24 Range/Units 11: 14:00 06:32 Sodium 135 L (137-145) mmol/L Potassium 6.0 H 5.0 4.8 (3.5-5.1) mmol/L Chloride 104 (98-107) mmol/L Carbon Dioxide 24 (22-30) mmol/L BUN 51 H (9-20) mg/dL Creatinine 1.03 (0.66-1.25) mg/dL Glucose 130 H (74-99) mg/dL Calcium 9.3 (8.4-10.2) mg/dL Calcium panel 03/15/24 Range/Units 06:32 Calcium 9.3 (8.4-10.2) mg/dL Pituitary panel 03/14/24 03/14/24 03/15/24 Range/Units : 14:00 06:32 Sodium 135 L (137-145) mmol/L Potassium 6.0 H 5.0 4.8 (3.5-5.1) mmol/L Chloride 104 (98-107) mmol/L Carbon Dioxide 24 (22-30) mmol/L BUN 51 H (9-20) mg/dL Creatinine 1.03 (0.66-1.25) mg/dL Glucose 130 H (74-99) mg/dL Calcium 9.3 (8.4-10.2) mg/dL Adrenal panel 03/14/24 03/14/24 03/15/24 Range/Units 11: 14:00 06:32 Sodium 135 L (137-145) mmol/L Potassium 6.0 H 5.0 4.8 (3.5-5.1) mmol/L Chloride 104 (98-107) mmol/L Carbon Dioxide 24 (22-30) mmol/L BUN 51 H (9-20) mg/dL Creatinine 1.03 (0.66-1.25) mg/dL Glucose 130 H (74-99) mg/dL Calcium 9.3 (8.4-10.2) mg/dL Assessment and Plan Assessment: Recent tracheostomy with bleeding. Patient should be evaluated by ENT surgery at [facility] due to bleeding.
[2024-03-15 16:27] VITALS: BP 108/55
[2024-03-15 16:42] LABS: Glucose,Whole Blood 159 mg/dL (70-110)
[2024-03-15 16:50] VITALS: PULSE 80
--- NOTE | 2024-03-15 23:38 | DS ---
DISCHARGE SUMMARY FINAL DIAGNOSES: 1. Bleeding from the tracheostomy site. 2. Severe hyperkalemia, present on admission. 3. History of squamous cell carcinoma of the larynx. 4. History of congestive heart failure. 5. Chronic obstructive pulmonary disease. 6. Diabetes mellitus, type 2. 7. Multiple complex medical issues. DISCHARGE DISPOSITION: The patient is being discharged in a stable condition with a guarded prognosis. Total time 35 minutes. The patient will be transferred to [facility] under ENT. Discussed with ENT at length. HISTORY OF PRESENT ILLNESS: This 88-year-old gentleman with a past history of multiple problems as mentioned earlier, was admitted after tracheostomy bleeding. The bleeding responded to tranexamic acid transiently, but however, because of recurrent bleeding and surgery, recommend the patient transferred disease I discussed the case with ENT physician at [facility], and the patient will be transferred in a stable condition with guarded prognosis. The patient apparently had chemotherapy and radiation also scheduled in the recent future. Hemoglobin is stable at 9.4. PHYSICAL EXAMINATION: VITAL SIGNS: Stable. CARDIOVASCULAR : S1 and S2. ABDOMEN: Soft, nontender. NECK: Tracheostomy with minimal being present. Please refer to the multiple consultations and surgery notes for further information. MMODL / IJN: [id number] /
== END 2024-03-15 17:40 | disposition short-term general hospital (02) ==
LOC: EC 09:33 → 3SCARD 12:28
PROVIDERS: ADMIT Internal Medicine; ATTEND Internal Medicine
DX: J95.01 Hemorrhage from tracheostomy stoma (principal); E87.5 Hyperkalemia; E11.9 Type 2 diabetes mellitus without complications; E78.5 Hyperlipidemia, unspecified; I11.0 Hypertensive heart disease with heart failure; I50.9 Heart failure, unspecified; J44.9 Chronic obstructive pulmonary disease, unspecified; Z79.899 Other long term (current) drug therapy; Z85.21 Personal history of malignant neoplasm of larynx; Z87.891 Personal history of nicotine dependence; Z92.21 Personal history of antineoplastic chemotherapy; Z95.2 Presence of prosthetic heart valve
CPT/HCPCS: 99284; 36415; 94640 ×4; 93005; 80053; 80048; 83735; 84132; 85025 ×2; 85610; 85730; 71045; G0378 ×2; J0171

== ENCOUNTER 2024-05-08 19:24 | Emergency (ER) | payer MEDICARE ==
[~2024-05-08 19:24] MED LIST changes: -ACETAMINOPHEN TAB 500 MG TAB PO PRN; +CALCIUM CHLORIDE 100 MG/ML 10 ML SYRINGE ONE; +EPINEPHrine 10 ML SYRINGE (0.1 MG/ML) ONE; +SODIUM BICARB 8.4% 50 ML SYR (1 MEQ/ML) ONE
[2024-05-08 19:28] VITALS: BP 0/0; PULSE 0; RESP 0
--- NOTE | 2024-05-08 22:36 | ED ---
CPR HPI - General Chief Complaint: Cardiac Arrest/CPR Stated Complaint: Cardiac Arrest Time Seen by Provider: 05/08/24 19:30 Source: EMS Mode of arrival: EMS Limitations: no limitations - History of Present Illness Initial Comments: 88-year-old male with past medical history of congestive heart failure, laryngeal cancer status post trach, COPD who presents emergency department. Originally the call went out by EMS for an unresponsive male. saw the patient last at 5 PM. He went to take a nap. When she tried to wake him up at 630 she was unable to awaken him. EMS, on scene and felt a very thready pulse. His heart rate was approximately 40. The patient had a very low blood pressure. They did give him a push dose of epinephrine to try and alleviate this. They ended up losing pulses and CPR was initiated. CPR head been completed for approximately 10 minutes prior to hospital arrival. He did receive 2 epinephrine. The patient had his uncuffed trach in place without an inner cannula. This was removed and an ET tube was placed in the patient's airway. The patient did not have any complaints today per the . She did state that she had to suction him more frequently due to sputum. His oxygen was also slightly low at home and therefore he was placed on some oxygen. Patient was not complaining of any chest pain. He is currently getting radiation treatments for his laryngeal cancer. He did not attend radiation today as he did not feel well. - Related Data Home Medications Medication Instructions Recorded Confirmed carvediloL [Coreg*] 12.5 mg PEG/G-TUBE BID 08/25/15 03/14/24 allopurinoL [Zyloprim] 300 mg PEG/G-TUBE DAILY 09/12/17 03/14/24 Atorvastatin [Lipitor] 40 mg PEG/G-TUBE HS 12/28/20 03/14/24 Gabapentin [Neurontin] 300 mg PEG/G-TUBE TID 12/28/20 03/14/24 HYDROcodone/APAP 10-325MG [Renwick 1 tab PEG/G-TUBE QID 12/28/20 03/14/24 10-325] Levothyroxine Sodium [Synthroid] 50 mcg PEG/G-TUBE DAILY 12/28/20 03/14/24 Albuterol Sulfate [Ventolin HFA] 1 - 2 puff INHALATION RT-Q6H PRN 08/26/23 03/14/24 Alpha Lipoic Acid 200 mg PEG/G-TUBE DAILY 08/26/23 03/14/24 traZODone HCL 150 mg PEG/G-TUBE HS 08/26/23 03/14/24 Ipratropium-Albuterol Nebulize 3 ml INHALATION RT-QID 02/20/24 03/14/24 [Duoneb 0.5 mg-3 mg/3 ml Soln] Codeine Phosphate/Guaifenesin 5 ml PEG/G-TUBE Q6H PRN 03/14/24 03/14/24 [Codeine Phosphate/Guaifenesin 10-100 mg/5 ml] Allergies Allergy/AdvReac Type Severity Reaction Status Date / Time ondansetron [From Zofran] Allergy Rash/Hives Verified 02/20/24 20:21 ciprofloxacin [From Cipro] AdvReac Angioedema Verified 02/20/24 20:21 ciprofloxacin HCl AdvReac Angioedema Verified 02/20/24 20:21 [From Cipro] ragweed pollen AdvReac congestion Verified 02/20/24 20:21 warfarin sodium AdvReac Nausea & Verified 02/20/24 20:21 [From Coumadin] Vomiting Review of Systems ROS Statement: Those systems with pertinent positive or pertinent negative responses have been documented in the HPI. ROS Other: All systems not noted in ROS Statement are negative. 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 Trach collar and peg tube placed in december History of Any Multi-Drug Resistant Organisms: None Reported Past Surgical History: Heart Catheterization, Joint Replacement, Orthopedic Surgery, Prostate Surgery, Tonsillectomy Additional Past Surgical History / Comment(s): Bilateral hip replacements, bilateral knee replacements, left arm tricep repaired, heart catheterization X3, colonoscopy, prostatectomy, steroid injection to back, skin cancer removed, cauterization d/t right Epistaxis, REYMUNDO, Aortic Valve Replacement(TAVR) 09/04/23. Past Anesthesia/Blood Transfusion Reactions: Previous Problems w/ Anesthesia Additional Past Anesthesia/Blood Transfusion Reaction / Comment(s): Uncontrolled shaking after hip surgery-no problems since. Bleeding in throat after valve replacement, unsure if from REYMUNDO or tube used for surgery. Past Psychological History: No Psychological Hx Reported Smoking Status: Former smoker Past Alcohol Use History: None Reported Past Drug Use History: None Reported - Past Family History Sister(s) Family Medical History: Cancer Additional Family Medical History / Comment(s): Breast cancer. Son(s) Family Medical History: Cancer Additional Family Medical History / Comment(s): Bladder cancer. General Exam Limitations: altered mental status General appearance: obtunded Head exam: Present: atraumatic Pupils: Present: mydriatic (Fixed at 6 mm) ENT exam: Present: mucous membranes dry Neck exam: Present: other (The patient's trach is removed and replaced with an ET tube) Respiratory exam: Present: rales, decreased breath sounds Cardiovascular Exam: Present: other (Absent heartbeat) Neurological exam: Present: other (Patient is unresponsive to tactile and verbal stimulation) Skin exam: Present: pallor, mottled Course Vital Signs 05/08/24 19:25 Pulse Rate 0 L Respiratory 0 L Rate Blood Pressure 0/0 O2 Sat by Pulse 0 L Oximetry Medical Decision Making - Medical Decision Making Was pt. sent in by a medical professional or institution (, PA, ALL SOURCE INTELLIGENCE ANALYST, urgent care, hospital, or long term...) When possible be specific @ -No Did you speak to anyone other than the patient for history (EMS, parent, family, police, friend...)? What history was obtained from this source @ -Spoke with EMS for history Did you review nursing and triage notes (agree or disagree)? Why? @ -I reviewed and agree with nursing and triage notes Were old charts reviewed (outside hosp., previous admission, EMS record, old EKG, old radiological studies, urgent care reports/EKG's, long term records)? Report findings @ -I reviewed patient's chart from the last time he was hospitalized in February. I also reviewed my ED report when I took care of the patient in January Differential Diagnosis (chest pain, altered mental status, abdominal pain women, abdominal pain men, vaginal bleeding, weakness, fever, dyspnea, syncope, headache, dizziness, GI bleed, back pain, seizure, CVA, palpatations, mental health, musculoskeletal)? @ -Cardiac arrest, respiratory arrest, trach dislodgment, stroke, DKA EKG interpreted by me (3pts min.). @ -Not completed X-rays interpreted by me (1pt min.). @ -None done CT interpreted by me (1pt min.). @ -None done U/S interpreted by me (1pt. min.). @ -None done What testing was considered but not performed or refused? (CT, X-rays, U/S, labs)? Why? @ -Laboratory studies, chest x-ray and EKG were all pending however we could not obtain a pulse back on the patient What meds were considered but not given or refused? Why? @ -None Did you discuss the management of the patient with other professionals (professionals i.e. , PA, ALL SOURCE INTELLIGENCE ANALYST, lab, RT, psych nurse, dialysis social worker, videotape sales representative, teacher, engineering officer, employment case manager)? Give summary @ -I spoke with the medical insurance collector as well as the patient's primary care physician Was smoking cessation discussed for >3mins.? @ -No Was critical care preformed (if so, how long)? @ -Yes, 40 minutes Were there social determinants of health that impacted care today? How? (Homelessness, low income, unemployed, alcoholism, drug addiction, transportation, low edu. Level, literacy, decrease access to med. care, fdc, rehab)? @ -No Was there de-escalation of care discussed even if they declined (Discuss DNR or withdrawal of care, Hospice)? DNR status @ -No What co-morbidities impacted this encounter? (DM, HTN, Smoking, COPD, CAD, Cancer, CVA, ARF, Chemo, Hep., AIDS, mental health diagnosis, sleep apnea, morbid obesity)? @ -Laryngeal cancer Was patient admitted / discharged? Hospital course, mention meds given and route, prescriptions, significant lab abnormalities, going to OR and other pertinent info. @ -Upon arrival patient seen and evaluated in trauma 2. We did obtain history from EMS. He is being bagged through his trach site with a 7.0 fr ET tube. Compressions and epinephrine pushes are continued. I did attempt to endotracheal intubate the patient however I am unable to pass a 6 Samoan tube through the cords. Repetitive pulse checks demonstrate no signs of life. No palpable pulse. Ultrasound is used to confirm that cardiac movement. Please see the code sheet for timing and treatment administered. Time of is called at 1939. I did speak with the medical insurance collector. Case number is [id number]. Patient's primary care is notified of . does present to the emergency department. Family is able to come back and see the patient before he is [place] the [facility] [place] Undiagnosed new problem with uncertain prognosis? @ -No Drug Therapy requiring intensive monitoring for toxicity (Heparin, Nitro, Insulin, Cardizem)? @ -No Were any procedures done? @ -No Diagnosis/symptom? @ -Acute cardiopulmonary arrest, history of laryngeal cancer status post trach Acute, or Chronic, or Acute on Chronic? @ -Acute Uncomplicated (without systemic symptoms) or Complicated (systemic symptoms)? @ -Complicated Side effects of treatment? @ -No Exacerbation, Progression, or Severe Exacerbation? @ -No Poses a threat to life or bodily function? How? (Chest pain, [place], PA, pneumonia, PE, COPD, DKA, ARF, appy, cholecystitis, CVA, Diverticulitis, Homicidal, Suicidal, threat to staff... and all critical care pts) @ -Yes patient succumbed to his diagnosis Disposition Clinical Impression: Cardiac arrest, Tracheostomy dependent Disposition: Referrals: Chandu Bryant MD [Primary Care Provider] - 1-2 days Preliminary Cause of : cardiac arrest
== END 2024-05-08 23:50 | disposition expired ==
LOC: EC 19:24
DX: I46.9 Cardiac arrest, cause unspecified (principal); Z93.0 Tracheostomy status; Z85.21 Personal history of malignant neoplasm of larynx; Z88.1 Allergy status to other antibiotic agents; Z88.8 Allergy status to other drugs, medicaments and biological substances; Z87.891 Personal history of nicotine dependence
CPT/HCPCS: 92950; 99285; J0171